=== PATIENT | female | born 1990 | race Caucasian/White ===

== ENCOUNTER → 2017-11-16 07:57 | Outpatient (CLI) | payer OTHER, SELFPAY ==
[2017-11-18 15:27] LABS: HPV Reflexed? NOT INDICATED
== END ==
PROVIDERS: Visit Provider Obstetrics & Gynecology
DX: Z12.4 Encounter for screening for malignant neoplasm of cervix (principal)
CPT/HCPCS: 88175; G0145

== ENCOUNTER → 2018-09-20 09:52 | Outpatient (CLI) | payer OTHER, SELFPAY ==
--- NOTE | 2018-09-20 10:06 | RAD_ITS ---
STUDY: X-RAY - RIGHT FOOT CLINICAL: Female, 28 years old. Pain along the fifth metatarsal. TECHNIQUE: 3 view(s) of the foot. COMPARISON: None. FINDINGS: Normal talus, calcaneus, and tarsal bones. Normal visualized subtalar, talonavicular, calcaneocuboid, tarsal and tarsometatarsal articulations. Normal metatarsi. Normal metatarsophalangeal joint of the great toe. Normal tibial and fibular sesamoid bones. Normal interphalangeal joint of the great toe. Normal phalanges of the great toe. Normal second through fifth metatarsophalangeal joints. Normal interphalangeal joints and phalanges of the lesser toes. The soft tissue structures are unremarkable. RAD/Foot min 3 Views IMPRESSION: Normal x-ray examination of the foot. Electronically Signed: Rasheed Ayala MD at 15:51 EST , Service support ,
== END ==
PROVIDERS: Family Provider Family Medicine; PCP Family Medicine; Referring Provider Family Medicine; Visit Provider Family Medicine
DX: S93.601A Unspecified sprain of right foot, initial encounter (principal)
CPT/HCPCS: 73630

== ENCOUNTER → 2018-10-05 09:20 | Outpatient (CLI) | payer OTHER, SELFPAY ==
[2018-10-05 09:10] VITALS: BMI 30.5
--- NOTE | 2018-10-05 09:25 | RAD_ITS ---
STUDY: X-RAY - RIGHT SHOULDER REASON FOR EXAM: Female, 28 years old. Right shoulder pain TECHNIQUE: 4 view(s) of the shoulder. COMPARISON: None. FINDINGS: Normal glenohumeral articulation. Normal acromioclavicular joint. Normal acromion. Normal humeral head and visualized proximal humerus. The soft tissue structures are unremarkable. Normal visualized pulmonary apex. RAD/Shoulder min 2 Views IMPRESSION: Normal x-ray examination of the shoulder. Electronically Signed: Kyaw Sanabria DO at 9:43 EST Tel , Service support ,
== END ==
PROVIDERS: Family Provider Family Medicine; PCP Family Medicine; Referring Provider Physician Assistant; Visit Provider Physician Assistant
DX: M25.511 Pain in right shoulder (principal)
CPT/HCPCS: 73030

== ENCOUNTER → 2018-11-01 10:23 | Outpatient (CLI) | payer OTHER, SELFPAY ==
[2018-10-05 09:10] VITALS: BMI 30.5
--- NOTE | 2018-11-01 10:30 | RAD_ITS ---
PROCEDURE: ARTHROGRAM - RIGHT SHOULDER REASON FOR EXAM: Female, 28 years old. Shoulder pain FLUOROSCOPY TIME (if supplied): (0:12) minutes/seconds STERILE BARRIER TECHNIQUE: The following sterile barrier precautions were used during the procedure: hand hygiene; use of 2% chlorhexidine aseptic; use of a cap, mask, sterile gown, sterile gloves, sterile full body drape, and a large sterile sheet. PROCEDURE/TECHNIQUE: The risks, benefits, and alternatives to the procedure were explained to patient, and the patient agreed to the procedure and signed a consent form for the procedure. A timeout was performed to confirm the patient's identity, the type of procedure, to be performed and the site of entry. Injection Information: Mixture containing 0.2 mL of Omniscan, 10 mL of Omnipaque 300 and 10 mL of normal saline. Number of images obtained: 7 TECHNIQUE: Under fluoroscopic guidance using sterile technique and after infiltration of the skin and subcutaneous soft tissues with 10 mL of lidocaine 1% a 22-gauge needle is introduced in the shoulder joint. 10 ml of the above mentioned mixture were injected in the shoulder joint. FINDINGS: The joint capsule is normal in size. There is no abnormal opacification of the subdeltoid bursa to suggest a full-thickness rotator cuff tear. There is no evidence of intra-articular loose bodies. RAD/Arthrogram Shoulder w/ MRI IMPRESSION: There is no evidence of intra-articular loose bodies. Electronically Signed: Celeste Andrade, at 16:07 EDT Tel , Service support ,
--- NOTE | 2018-11-01 10:42 | MRI_ITS ---
STUDY: MR RIGHT SHOULDER ARTHROGRAPHY REASON FOR EXAM: Pain and limited range of motion, felt a pop 6 months ago lifting overhead, evaluate for SLAP lesion. TECHNIQUE: Standardized fat and water weighted pulse sequences were obtained in all 3 orthogonal planes after intra-articular instillation of dilute Magnevist. COMPARISON: Radiographs 10/05/2018. FINDINGS: Normal supraspinatus tendon. Normal infraspinatus tendon. Normal subscapularis tendon. Normal teres minor tendon. Normal supraspinatus muscle. Normal infraspinatus muscle. Normal subscapularis muscle. Normal teres minor muscle. Normal glenohumeral articulation. Normal humeral head and visualized proximal humerus. Normal biceps labral complex. There is a tear with nonvisualization of the long biceps tendon. Normal labrum. Normal capsulo- ligamentous complex. Normal rotator interval. Normal acromioclavicular articulation. There is a Type I morphology (flat undersurface), with a mild anterior downsloping orientation. There is a trace of subacromial-subdeltoid bursal fluid. Normal visualized coracohumeral and coracoacromial ligaments. Normal deltoid muscle. Normal trapezius muscle. MRI/Upper Ext Jt Only W/Contrast IMPRESSION: Tear with nonvisualization of the long biceps tendon. No demonstrated SLAP lesion. Electronically Signed: Shemar Aranda MD at 13:59 EDT Tel , Service support ,
== END ==
PROVIDERS: Family Provider Family Medicine; PCP Family Medicine; Referring Provider Physician Assistant; Visit Provider Physician Assistant
DX: M25.311 Other instability, right shoulder (principal); S43.431A Superior glenoid labrum lesion of right shoulder, initial encounter
CPT/HCPCS: 23350; 73222; 77002; A9577; Q9967

== ENCOUNTER 2018-12-06 08:00 | Outpatient (RCR) | payer OTHER, SELFPAY ==
[2018-10-05 09:10] VITALS: BMI 30.5
--- NOTE | 2018-11-15 07:59 | HP.PTEVAL_ITS ---
Patient's Visit Information SUSHIL FINNEY is a 28 year old F referred to Physical Therapy by Casey Saini DO with a diagnosis of biceps tendon rupture R.. Date of Evaluation: 11/15/18 Physical Therapist: Sreedhar Rm DPT, OCS, CSCS - Visit Plan Frequency: 3x /Week Duration: 4-6 Weeks Plan: 3x/week for 3-6 weeks for. 1. nonthermal US R biceps and supra. 2. strength RC and postural, slow progression of painfree biceps. 3. pec stretches and mobs, PROM to R shoulder as needed. 4. ACTIVITY MODIFICATION for REST> - Subjective Findings: Shoulder R problems for long time. Lifting at [employer] overhead and shoulder did not feel good all of a sudden. Did not get better. Got in to see ortho and had MRI arthrogram. Showed ruptured biceps tendon but not fully. That was two weeks ago. Pain is not too bad as I havent been doing much. If sleeps on side then it is sore but usable. Pushing exercises hurt it and it gets caught. Overhead training not too bad. Pain is 5/10 transiently with pushing. Hurts dull 4/10 if sleeps on it wrong. Has been avoiding alot of activities with arm. Sleep is OK. 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 Been OK at work. Other hobbies other than working out are woriking with her certified therapy dog and walking her with L hand a little bit more. Dressing and basic ADLs are oK. - Pain R anterior shoulder Pain Intensity (Out of 10): 0 Pain Intensity Range: 0, 5 - Objective R shoulder + apprehension and neer. - et rotation lag test. - sulcus. Head is forward and scap are protruded. Tightness apparent minimally in pectorals. Full aROM R shoulder and L shoulder but R IR and end range/painful arc with abduction. Strength is 4/5 ext rotation with some pain and 4- abd with pain, flexion and IR 4+ R. 5/5 L shoulder. biceps and triceps 4+ and no pain B. reflexes 2/3 bi and tri. Sensation WNL to gross light touch - Goals Goal 1:: Full aROM R shoulder without pain Goal Time Frame: 4-6 Weeks Goal 2:: Patient I in approp ex to stabilize shoulder. Goal Time Frame: 4-6 Weeks Goal 3:: Pt feel 90% back to normal Goal Time Frame: 4-6 Weeks Goal 4:: burpees without noticing shoulder Goal Time Frame: 4-6 Weeks - Rehabilitation Potential Physical Therapy Diagnosis: R shoulder pain with biceps rupture. Rehabilitation Potential: Fair - Anticipated Interventions Patient/Client Instruction: Educate patient on: Condition, Plan of Care For the Purpose of:: To decrease pain, To improve nutrient delivery to tissue, To improve muscle performance and motor function Therapeutic Exercise to Include: Strength training, Flexibilty training, Passive ROM, Active ROM For the Purpose of:: To decrease pain, To improve nutrient delivery to tissue, To increase tolerance to activity/condition/position, To improve ability of physical actions for home/community/work/leisure Manual Therapy Techniques to Include: Mobilization, Passive ROM For the Purpose of:: To decrease pain, To improve muscle performance and motor function Ultrasound (thermal/non thermal): Yes - nonthermal For the Purpose of:: To decrease swelling/inflammation Thank you for the opportunity to evaluate your patient. For Medicare and Medicare HMO plans, please review the plan of care and approve it. It will need to be FAXED BACK to us at [phone] for Medicare purposes. For Medicare only, by signing this I certify the plan of care. Please let me know if there are questions or concerns regarding this plan of care. Physician Signature: Date:
--- NOTE | 2019-02-08 12:19 | HP.PT.NRP ---
HP - Discharge Summary (1) - Patient Information SUSHIL FINNEY was seen in my office for initial evaluation on 11/15/18. The following Plan of Care was established for this patient: Initial Frequency: 3x /Week Initial Duration: 4-6 Weeks - Anticipated Interventions Patient/Client Instruction: Educate patient on: Condition, Plan of Care For the Purpose of:: To decrease pain, To improve nutrient delivery to tissue, To improve muscle performance and motor function Therapeutic Exercise to Include: Strength training, Flexibilty training, Passive ROM, Active ROM For the Purpose of:: To decrease pain, To improve nutrient delivery to tissue, To increase tolerance to activity/condition/position, To improve ability of physical actions for home/community/work/leisure Manual Therapy Techniques to Include: Mobilization, Passive ROM For the Purpose of:: To decrease pain, To improve muscle performance and motor function Ultrasound (thermal/non thermal): Yes - nonthermal For the Purpose of:: To decrease swelling/inflammation This patient was last seen in our office 12/06/18. Pertinent comments regarding their Physical therapy will appear below: Pt seen 6 visits through 12/06. She cancelled her last visit and neglected to schedule and further visits. at this point, it has been over 2 months and I will discontinue due to nonattendance. At this point I will be discontinuing this patient from physical therapy. I would be happy to see this patient again in the future if found appropriate by the physician. Thank you! Sreedhar Rm, DPT, OCS, CSCS
== END 2018-12-06 19:00 | disposition home or self-care (01) ==
LOC: PT 08:00
PROVIDERS: Family Provider Family Medicine; PCP Family Medicine; Referring Provider Orthopaedic Surgery; Visit Provider Orthopaedic Surgery
DX: S46.211D Strain of muscle, fascia and tendon of other parts of biceps, right arm, subsequent encounter (principal)
CPT/HCPCS: 97035; 97110; 97161

== ENCOUNTER 2020-03-13 08:31 | Outpatient (RCR) | payer OTHER, SELFPAY ==
[2018-10-05 09:10] VITALS: BMI 30.5
== END 2020-03-13 23:59 | disposition home or self-care (01) ==
LOC: NS 08:31
PROVIDERS: PCP Family Medicine; Visit Provider Family Medicine
DX: Z71.3 Dietary counseling and surveillance (principal); E66.9 Obesity, unspecified; Z68.30 Body mass index [BMI] 30.0-30.9, adult
CPT/HCPCS: 97802

== ENCOUNTER → 2020-04-20 17:47 | Outpatient (CLI) | payer OTHER, SELFPAY ==
[2018-10-05 09:10] VITALS: BMI 30.5
== END ==
PROVIDERS: PCP Family Medicine; Referring Provider Family Medicine; Visit Provider Family Medicine
DX: Z71.89 Other specified counseling (principal)
CPT/HCPCS: 87635; U0003

== ENCOUNTER 2020-06-14 08:55 | Emergency (ER) | payer OTHER, SELFPAY ==
[2018-10-05 09:10] VITALS: BMI 30.5
[2020-06-14 08:55] VITALS: BP 139/86; PULSE 79; RESP 16; TEMP 36.4; O2SAT 98; BMI 30.8
--- NOTE | 2020-06-14 09:06 | ED.VIS.GEN ---
History of Present Illness Chief Complaint: Back Informant: Patient Onset: Today Current Severity: Moderate Maximum Severity: Moderate Narrative: Patient presents with back pain and spasms. She states while stretching to workout this morning she noted some tightness in her left lower back and did not proceed any further. 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 She did require assistance out of the shower and with getting dressed. She denies pain shooting down her leg. There was no trauma or direct injury to her back. She denies paresthesias. - Past Medical History (1) Depression Status: Chronic Past Medical History - Allergies and Home Meds Allergies/Adverse Reactions: Allergies Penicillins Allergy (Verified 06/14/20 08:57) rash Primary Care Physician: Aldo Mueller MD [Primary Care Provider] - Prior records reviewed: Yes Surgical History: tonsillectomy Smoking Status: Never smoker Review of Systems General: Denies: Chills, Fever Eyes: Denies: Visual changes - bilaterally ENT: Denies: Bilateral ear pain Cardiovascular: Denies: Chest pain Respiratory: Denies: Dyspnea, Cough Gastrointestinal: Denies: Abdominal pain, Vomiting, Diarrhea Musculoskeletal: Reports: Back pain Neurological: Denies: Weakness, Parasthesia, Numbness Hematologic: Denies: Easy bruising Allergy: Denies: Uticaria Physical Exam Vital Signs/Narrative: Vital Signs Temp Pulse Resp BP Pulse Ox 06/14/20 08:55 97.6 F L 79 16 139/86 H 98 Inital Vital Signs reviewed: Yes General: Well nourished, Well developed Head: Normocephalic ENT: Moist mucous membranes Neck: Supple Cardiovascular: Regular rate, Regular rhythm Respiratory: No distress, CTA bilaterally Abdomen: Soft, Nontender Back: - - Reproducible tenderness in the left lumbar paraspinal muscles. No overlying skin change. No focal point tenderness midline. Extremities: Nontender Skin: Normal color, No rash Neurological: Alert, Oriented x3, Normal Strength, Normal Sensation, - - Strong distal pulses. 2+ left patellar reflex. Psychological: Normal affect Diagnostic/Tx/Re-eval - Medical Decision Making With no direct trauma to her back I do not feel imaging is going to be beneficial. Patient be treated with naproxen and Flexeril here along with a Lidoderm patch. She will be written for the same at home as well as a few [place] for breakthrough pain. ED Disposition - Plan for ED Patient: Disposition: Home or Assisted Living Diagnosis: Strain of lumbar paraspinal muscle Instructions: ED LUMBAR SPRAIN/STRAIN Prescriptions: cycloBENZAPRine HCl [Flexeril] 10 mg PO TID PRN #20 tab PRN Reason: Muscle Spasm Transmission Status: Pending to [id number] Lidocaine [Lidoderm Patch] 1 patch TOPICAL BID PRN PRN #6 patch PRN Reason: Spasms Transmission Status: Pending to [id number] Naproxen [Naprosyn] 500 mg PO BID PRN PRN #20 tab PRN Reason: Pain Score 4-10 Transmission Status: Pending to [id number] Hydrocodone Bitart/Apap 5-325 [[place] 5MG-325MG] 1 tablet PO Q6H PRN PRN 3 Days #10 tablet PRN Reason: Pain Transmission Status: Received by [id number] Referrals: Aldo Mueller MD [Primary Care Provider] - 1 Week if not improving
[2020-06-14] MEDS: Naproxen 500 MG Tablet PO (10:02)
[2020-06-14] MEDS: Lidocaine 5% Patch 1 PATCH TOPICAL (10:02)
[2020-06-14] MEDS: cycloBENZAPRine HCl 10 MG Tablet PO (10:02)
[2020-06-14 10:07] VITALS: PULSE 81; RESP 16; O2SAT 97
--- NOTE | 2020-06-14 10:08 | ED.RN ---
THIS NURSE REVIEWED D/C INSTRUCTIONS WITH PT. PT VERBALIZED UNDERSTANDING OF INSTRUCTIONS. PT DENIES FURTHER NEEDS OR QUESTIONS AT THIS TIME. PT AMBULATES FROM ROOM ON OWN WITHOUT ASSISTANCE FROM STAFF
== END 2020-06-14 10:10 | disposition home or self-care (01) ==
LOC: ED 09:18
PROVIDERS: Emergency Provider Emergency Medicine; PCP Family Medicine
DX: S39.012A Strain of muscle, fascia and tendon of lower back, initial encounter (principal); X50.1XXA Overexertion from prolonged static or awkward postures, initial encounter; Y93.9 Activity, unspecified; Y92.9 Unspecified place or not applicable; F32.9 Major depressive disorder, single episode, unspecified; Z79.899 Other long term (current) drug therapy
CPT/HCPCS: 99281

== ENCOUNTER → 2020-11-26 12:40 | Outpatient (CLI) | payer OTHER, SELFPAY ==
--- NOTE | 2020-11-26 12:44 | RAD_ITS ---
STUDY: X-RAY - CERVICAL SPINE REASON FOR EXAM: Female, 30 years old. NECK MUSCLE SPASM TECHNIQUE: 6 view(s) of the cervical spine were obtained. COMPARISON: None FINDINGS: Normal anterior atlantoaxial articulation. Normal odontoid process. There is straightening of the normal cervical lordosis. Normal vertebral bodies and endplates. Normal disc space heights. Normal visualized intervertebral neuroforamina. The soft tissue structures are unremarkable. RAD/Cerv Spine 4 or 5 Views IMPRESSION: Normal x-ray examination of the visualized cervical spine. Electronically Signed: Robert Magaña MD at 13:07 EDT , Service support ,
== END ==
PROVIDERS: PCP Family Medicine; Referring Provider Family Medicine; Visit Provider Family Medicine
DX: M62.838 Other muscle spasm (principal)
CPT/HCPCS: 72050

== ENCOUNTER 2020-12-31 12:24 | Outpatient (RCR) | payer OTHER, SELFPAY ==
--- NOTE | 2020-12-31 13:07 | HP.PTEVAL ---
Patient's Visit Information SUSHIL HOPSON is a 30 year old F referred to Physical Therapy by Dr. Aldo Mueller MD with a diagnosis of Neck spasms. Date of Evaluation: 12/31/20 Physical Therapist: Sreedhar Rm DPT, OCS, CSCS - Visit Plan Frequency: 2x /Week Duration: 4-6 Weeks Plan: 2x/week for 2-4 weeks for... 1 Carolyn neck progressions with c/s ret, progressing to mobs, ext when able. 2. cervical and postural strength progressing to I program. 3a STM to neck subocc adn UT as needed. 3. May use heat, ice, TENS if needed, - Subjective Tightness adn pain in neck, insidious onset adn has had this in the past but it is flared up. Worse at base of head R>L when turning head. kept her up at night at first when it started back in November, she is a side sleeper. Pain now is daily with some bad days. Bad days to 5/10 intemrittently. Some days minimal. Activities are normal. 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 Doing computer work alot and has stand up desk she uses now and then [facility] helps. Hobbies include crossfit 3-5x/week and training for triathlon. neck has not limited these. Doing alot of biking on road bike. Basic aDLs are OK. Worse with some movements like rowing and dipping. deadlifts running. biking might be worse after. No arm symptoms. - Pain neck pain Pain Intensity (Out of 10): 0 Pain Intensity Range: 0, 5 - Objective Posture is forward head and elevated sap. Tender to palpation on R subocc and into B UT. reflexes 1/3 bi and tri. Sensation UE WNl to gross light touch. + c/s compressionw tih right rotation. Tightness in B UT. cervical aROM ext 55 + right deviates L slightly, R rotation 65 adn L 72 with pain R, SB are K, retraction hurts R subocc. repeated motion comfortable to start: protrusion PDM, NE. retraction repeated: improved ROM./rotation, improved ROM,. repeated ret ext., worse ret. - Goals Goal 1:: Full c/s ROM without pain or tightness. Goal Time Frame: 4-6 Weeks Goal 2:: All home and work activities without increased pain Goal Time Frame: 4-6 Weeks Goal 3:: Pt feel 90% better overall Goal Time Frame: 4-6 Weeks Goal 4:: oswestry neck 0 score. Goal Time Frame: 4-6 Weeks - Rehabilitation Potential Physical Therapy Diagnosis: cervical pain, likely discal. Rehabilitation Potential: Fair - Anticipated Interventions For the Purpose of:: To decrease pain, To increase ROM Therapeutic Exercise to Include: Strength training, Postural training, Flexibilty training, Passive ROM, Active ROM, Carolyn Exercises For the Purpose of:: To decrease pain, To increase ROM, To improve muscle performance and motor function, To increase tolerance to activity/condition/position, To improve health of tissue Manual Therapy Techniques to Include: Mobilization, Soft tissue mobilization For the Purpose of:: To decrease pain, To increase ROM, To improve nutrient delivery to tissue TENS: Yes Cryotherapy (ice pack, ice massage): Yes Thermo therapy (hot pack): Yes For the Purpose of:: To decrease pain Thank you for the opportunity to evaluate your patient. For Medicare and Medicare HMO plans, please review the plan of care and approve it. It will need to be FAXED BACK to us at [phone] for Medicare purposes. For Medicare only, by signing this I certify the plan of care. Please let me know if there are questions or concerns regarding this plan of care. Physician Signature: Date:
--- NOTE | 2021-03-12 12:35 | HP.PT.NRP ---
SUSHIL HOPSON was seen in my office for initial evaluation on 12/31/20. The following Plan of Care was established for this patient: Initial Frequency: 2x /Week Initial Duration: 4-6 Weeks For the Purpose of:: To decrease pain, To increase ROM Therapeutic Exercise to Include: Strength training, Postural training, Flexibilty training, Passive ROM, Active ROM, Tona Exercises For the Purpose of:: To decrease pain, To increase ROM, To improve muscle performance and motor function, To increase tolerance to activity/condition/position, To improve health of tissue Manual Therapy Techniques to Include: Mobilization, Soft tissue mobilization For the Purpose of:: To decrease pain, To increase ROM, To improve nutrient delivery to tissue TENS: Yes Cryotherapy (ice pack, ice massage): Yes Thermo therapy (hot pack): Yes For the Purpose of:: To decrease pain This patient was last seen in our office 12/31/20. Pertinent comments regarding their Physical therapy will appear below: Pt seen for evaluationa dn POC was established. She cancelled or no showed for all of her visits. At this point, it has been over two months and I will discontinue due to nonattendance. At this point I will be discontinuing this patient from physical therapy. I would be happy to see this patient again in the future if found appropriate by the physician. Thank you! Sreedhar Rm, DPT, OCS, CSCS Balance/Gait/Functional tests - Balance/Special Test Scores Oswestry Neck Score: 5
== END 2020-12-31 19:00 | disposition home or self-care (01) ==
LOC: PT 12:24
PROVIDERS: PCP Family Medicine; Referring Provider Family Medicine; Visit Provider Family Medicine
DX: M62.838 Other muscle spasm (principal)
CPT/HCPCS: 97110; 97162

== ENCOUNTER 2022-07-14 14:53 | Outpatient (CLI) | payer OTHER, SELFPAY ==
[2022-07-14 16:49] LABS: Absolute Lymphocyte Count 2.15 X10^3/uL (0.83-4.51); Basophil# 0.06 X10^3/uL; Basophil% 0.9 % (0-1); Eosinophil# 0.19 X10^3/uL; Eosinophils% 2.8 % (0-5); Hemoglobin 13.1 g/dL (12.0-15.0); Lymphocyte # 2.15 X10^3/ul (0.83-4.51); Lymphocyte % 31.2 % (19-41); Mean Corp Hgb Conc 33.6 g/dL (32-36); Mean Corpuscular Hgb 31.9 pg (27.0-32.0); Mean Corpuscular Volume 94.9 fL (81-99); Monocyte# 0.49 X10^3/uL; Monocyte% 7.1 % (0-10); NRBC Flagged by Analyzer 0 % (0-5); Neutrophil # 3.98 X10^3/uL (2.7-7.7); Neutrophil % 57.7 % (47-70); Platelet Count 286 K/mm3 (150-450); RBC Distribution Width CV 13.2 % (11.6-14.6); RBC Distribution Width SD 46.2 fl (35.1-43.9); Red Blood Count 4.11 M/mm3 (4.2-5.4); White Blood Count 6.9 K/mm3 (4.4-11.0)
[2022-07-14 17:03] LABS: ALB/GLOB Ratio 1.1 RATIO (0.9-2.4); AST(SGOT) 12 U/L (15-37); Alanine Aminotransfer ALT/SGPT 23 U/L (13-56); Albumin, Serum 3.8 g/dL (3.2-5.0); Alkaline Phosphatase 80 U/L (45-117); Anion Gap 9 (5-15); BUN 17 mg/dL (7-18); BUN/Creat Ratio 17.5 RATIO (10-20); Chloride 105 mmol/L (98-107); Creatinine, Serum 0.97 mg/dL (0.55-1.02); EST Glomerular Filtration Rate 70 mL/min (>60); Est Glom Filt Rate - Afr Amer 85 mL/min (>60); Globulin 3.6 g/dL (2.2-4.2); Glucose 99 mg/dL (74-106); Potassium 3.9 mmol/L (3.5-5.1); Protein, Total 7.4 g/dL (6.4-8.2); Sodium Level 138 mmol/L (136-145); Thyroid Stim Hormone (TSH) 1.51 uIU/mL (0.358-3.74)
== END 2022-07-14 23:59 | disposition home or self-care (01) ==
LOC: BIMLAB 14:54
PROVIDERS: PCP Internal Medicine; Referring Provider Internal Medicine; Visit Provider Internal Medicine
DX: F41.1 Generalized anxiety disorder (principal)
CPT/HCPCS: 36415; 80053; 84439; 84443; 85025

== ENCOUNTER → 2023-04-17 | Outpatient (CLI) | payer OTHER, SELFPAY ==
[2023-04-17 12:22] LABS: Absolute Lymphocyte Count 2.08 X10^3/uL (0.83-4.51); Absolute Neutrophil Count 3.9 X10^3/uL (2.0-7.7); Basophil# 0.07 X10^3/uL; Eosinophil# 0.23 X10^3/uL; Eosinophils% 3.4 % (0-5); Hematocrit 37.3 % (37-47); Hemoglobin 11.6 g/dL (12.0-15.0); Lymphocyte # 2.08 X10^3/ul (0.83-4.51); Lymphocyte % 30.3 % (19-41); Mean Corp Hgb Conc 31.1 g/dL (32-36); Mean Corpuscular Hgb 29.5 pg (27.0-32.0); Mean Corpuscular Volume 94.9 fL (81-99); Mean Platelet Vol. 9.7 fl (6.2-12.0); Monocyte# 0.55 X10^3/uL; NRBC Flagged by Analyzer 0 % (0-5); Neutrophil % 56.9 % (47-70); Platelet Count 294 K/mm3 (150-450); RBC Distribution Width CV 13.7 % (11.6-14.6); RBC Distribution Width SD 47.4 fl (35.1-43.9); Red Blood Count 3.93 M/mm3 (4.2-5.4); White Blood Count 6.9 K/mm3 (4.4-11.0)
[2023-04-17 12:51] LABS: ALB/GLOB Ratio 1.2 RATIO (0.9-2.4); AST(SGOT) 14 U/L (15-37); Alanine Aminotransfer ALT/SGPT 21 U/L (13-56); Albumin, Serum 3.7 g/dL (3.2-5.0); Alkaline Phosphatase 85 U/L (45-117); Anion Gap 4 (5-15); BUN 15 mg/dL (7-18); BUN/Creat Ratio 19.6 RATIO (10-20); Calcium,Total 8.8 mg/dL (8.5-10.1); Chloride 109 mmol/L (98-107); Cholesterol 168 mg/dL (200); Creatinine, Serum 0.77 mg/dL (0.55-1.02); EST Glomerular Filtration Rate 92 mL/min (>60); Est Glom Filt Rate - Afr Amer 111 mL/min (>60); Globulin 3.2 g/dL (2.2-4.2); Glucose 98 mg/dL (74-106); High Density Lipoprotein 72 mg/dL; Protein, Total 6.9 g/dL (6.4-8.2); Sodium Level 140 mmol/L (136-145); Triglycerides 64 mg/dL; Very Low Density Lipoprotein 13 mg/dL (5-40)
== END | disposition home or self-care (01) ==
LOC: BIMLAB 10:24
PROVIDERS: PCP Internal Medicine; Referring Provider Internal Medicine; Visit Provider Internal Medicine
DX: F41.1 Generalized anxiety disorder (principal); F10.10 Alcohol abuse, uncomplicated; Z13.220 Encounter for screening for lipoid disorders; Z13.6 Encounter for screening for cardiovascular disorders
CPT/HCPCS: 36415; 80053; 80061; 85025

== ENCOUNTER → 2024-02-09 | Outpatient (CLI) | payer OTHER, SELFPAY ==
[2024-02-09 17:01] LABS: ALB/GLOB Ratio 1.1 RATIO (0.9-2.4); AST(SGOT) 14 U/L (15-37); Alanine Aminotransfer ALT/SGPT 26 U/L (13-56); Albumin, Serum 3.8 g/dL (3.2-5.0); Alkaline Phosphatase 79 U/L (45-117); Anion Gap 5 (5-15); BUN 11 mg/dL (7-18); BUN/Creat Ratio 11.8 RATIO (10-20); Calcium,Total 9.3 mg/dL (8.5-10.1); Chloride 107 mmol/L (98-107); Cholesterol 180 mg/dL (200); Creatinine, Serum 0.93 mg/dL (0.55-1.02); EST Glomerular Filtration Rate 73 mL/min (>60); Est Glom Filt Rate - Afr Amer 88 mL/min (>60); Globulin 3.5 g/dL (2.2-4.2); Glucose 105 mg/dL (74-106); High Density Lipoprotein 78 mg/dL; Potassium 3.7 mmol/L (3.5-5.1); Protein, Total 7.3 g/dL (6.4-8.2); Sodium Level 140 mmol/L (136-145); Triglycerides 112 mg/dL; Very Low Density Lipoprotein 22 mg/dL (5-40)
[2024-02-09 17:02] LABS: Absolute Lymphocyte Count 2.85 X10^3/uL (0.83-4.51); Basophil# 0.06 X10^3/uL; Basophil% 0.7 % (0-1); Eosinophil# 0.13 X10^3/uL; Eosinophils% 1.5 % (0-5); Hematocrit 38.9 % (37-47); Hemoglobin 12.5 g/dL (12.0-15.0); Lymphocyte # 2.85 X10^3/ul (0.83-4.51); Lymphocyte % 32.9 % (19-41); Mean Corp Hgb Conc 32.1 g/dL (32-36); Mean Corpuscular Hgb 30.2 pg (27.0-32.0); Mean Platelet Vol. 9.8 fl (6.2-12.0); Monocyte# 0.56 X10^3/uL; Monocyte% 6.5 % (0-10); NRBC Flagged by Analyzer 0 % (0-5); Neutrophil # 5.03 X10^3/uL (2.7-7.7); Neutrophil % 58.2 % (47-70); Platelet Count 307 K/mm3 (150-450); RBC Distribution Width CV 13.4 % (11.6-14.6); RBC Distribution Width SD 45.8 fl (35.1-43.9); Red Blood Count 4.14 M/mm3 (4.2-5.4); White Blood Count 8.7 K/mm3 (4.4-11.0)
== END | disposition home or self-care (01) ==
LOC: BIMLAB 15:04
PROVIDERS: PCP Internal Medicine; Referring Provider Nurse Practitioner; Visit Provider Nurse Practitioner
DX: Z00.00 Encounter for general adult medical examination without abnormal findings (principal)
CPT/HCPCS: 36415; 80053; 80061; 85025

== ENCOUNTER → 2024-02-25 | Outpatient (CLI) | payer OTHER, SELFPAY ==
--- NOTE | 2024-02-25 09:56 | RAD_ITS ---
STUDY: X-RAY - PELVIS AND LEFT HIP REASON FOR EXAM: Female, 33 years old. left hip pain -- CAM views TECHNIQUE: 3 views of the pelvis and hip. COMPARISON: None. FINDINGS: There is a non-specific bowel gas pattern. Normal visualized soft tissue structures. Normal bilateral iliac wings, sacroiliac joints and visualized sacrum. Normal bilateral superior and inferior pubic rami. Normal pubic symphysis. Normal bilateral ischial tuberosities. Normal visualized femoral head. There is cortical sclerosis with sub-cortical cyst formation of the acetabulum. Normal hip joint. 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 MRI may be useful. Electronically Signed: James Perez MD at 8:57 EDT ,
== END | disposition home or self-care (01) ==
PROVIDERS: PCP Internal Medicine; Referring Provider Nurse Practitioner; Visit Provider Nurse Practitioner
DX: M25.552 Pain in left hip (principal)
CPT/HCPCS: 73502

== ENCOUNTER 2024-05-02 08:00 | Outpatient (RCR) | payer OTHER, SELFPAY ==
--- NOTE | 2024-03-08 15:10 | HP.PTEVAL ---
Patient's Visit Information Visit Information Visit Information: SUSHIL HOPSON is a 34 year old F referred to Physical Therapy by Dr. Casey Saini DO with a diagnosis of LUMBAR DDD AND SPONDYLOSIS. Date of Evaluation: 03/08/24 Physical Therapist: Yessi Hernández PT, Cert MDT Visit Plan Frequency: 2x /Week Duration: 4-6 Weeks Plan: AQUATIC THERAPY FOR LUMBAR AND LYLE HIP PAIN RELIEF. POSTURE TRAINING FOR ANTERIOR PELVIC TILT CORRECION CORE STRENGTHENING WITH NEUTRAL SPINE ONLY. LYLE LE STRENGTHENING. HIP FLEXOR, HAMSTRING, HIP ROTATOR AND CALF STRETCHING. 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 Present symptoms: INTERMITTENT LEFT LOW BACK PAIN. INTERMITTENT LATERAL THIGH PAIN. CONSTANT ANTERIOR HIP PAIN. INTERMITTENT R ANTERIOR HIP PAIN. Present since: AUG 2022 Pain Scale: WORST 8/10, LEAST 2/10 Currently: 5/10 Is it getting better, worse or staying the same: STAYING THE SAME Commenced as a result of: DRIVING Symptoms at onset: R ANTERIOR HIP PAIN Worse: PROLONGED SITTING (MORE THAN 90 MIN), (LIFTING, SQUATS, DEADLIFTS, RUNNING, TRAINING WITH SURVEY RESEARCH MANAGER), TWISTING, BENDING TO THE SIDE, TRAVELING BY CAR OR PLANE. LIFTING L LEG, STEPPING OVER THINGS WITH L LEG. Better: PIRIFORMIS, GROIN, AND QUADS. LYING DOWN ON BACK WITH PILLOW UNDER BACK AND BUTT. STANDING WITH PELVIS TUCKED - TAUGHT BY PIPE FITTER WELDING. Disturbed sleep: YES Previous history/Previous treatment: PIPE FITTER WELDING/[facility], [facility]ICAL [facility] AUG/SEP 2022 - STATES IT HELPED WHEN THERAPIST PUSHED ON HER BACK - TRIED ABOUT 3-4 VISITS BUT STATES IT WAS REALLY EXPENSIVE - ABOUT 75% BETTER. WANTED TO SEE AN ORTHO BEFORE CONTINUING. SAW ORTHO - DR. SAINI - ARTHRITIS IN BACK AND IMPINGEMENT IN L HIP. STATES ORTHO DIDN'T LOOK AT R HIP. STATES NO SURGERY WAS RECOMMENDED. STATES WEIGHT LOSS IS ALSO RECOMMENDED AND SHE IS DOING NUTRITION COACHING WITH TRAINING AND MEDICATION WITH DR. NOLASCO. H/O EPISODE OF BACK PAIN WITH ED VISIT 2019 TREATED WITH REST, MUSCLE RELAXER AND NAPROXEN - WAS LIFTING/CROSS FIT THEN BENT OVER TO RADIATOR CLEANER SHAMPOO BOTTLE IN THE SHOWER AND BACK WENT OUT. Treatment this episode: PERSCRIPTION NAPROXEN, FLEXERIL NEEDED. REST. Coughing/sneezing/straining: NO EFFECT ON PAIN. Gait: DENIES LIMPING BUT SOME DIFFICULTY INITIATING GAIT AFTER PROLONGED SITTING. Bowel or Bladder Dysfunction: NO Accidents: NO Unexplained weight loss: NO Imaging: RECENT X-RAYS OF PELVIS, L HIP AND LUMBAR - SEE [facility] EMR. NO MRI'S. PMH/Recent major surgery: PATIENT DENIES HAVING ANY MEDICAL CONDITIONS. Objective Objective: Sitting/Standing Posture: L ILIAC CREST HIGHER THAN R. ANTERIOR PELVIC TILT. X-RAY SHOWS MILD LEVOSCOLIOSIS CENTERED AT L4 Active Correction of posture: BETTER. ABLE TO PARTIALLY CORRECT. Other Observations: INDEP GAIT AND TRANSFERS WITH NO GROSS DEVIATIONS NOTED. ABLE TO TRANSFER INDEP'LY FROM SIT TO STAND WITHOUT UE ASSIST. Sensory deficit: LYLE LE LIGHT TOUCH SENSATION GROSSLY INTACT AND SYMMETRICAL ROM deficit: L HIP IR/ER TIGHTNESS > R AND L HIP PAIN WITH TESTING. MILD LYLE HS AND CALF TIGHTNESS. LYLE HIP FLEXOR TIGHTNESS. Motor deficit: LYLE LE'S GROSSLY 5/5 WITH MMT'ING EXCEPT HIPS, R 4/5 AND L 4-/5. C/O L HIP PAIN WITH LYLE HIP TESTING. Reflexes: R QUAD 2+, R ACHILLES 2+, L QUAD 1+, L ACHILLES 2+ Dural Signs: NEGATIVE LYLE LE'S. Lumbar mvmt loss: flex - NIL - BETTER - NB ext - MOD - NE R SG - MOD TO DOMINIC - INCREASES L HIP - NW L SG - MIN - INCREASES L HIP BUT NOT BAD WHEN GOING TO THE R - NW Core strength: FAIR Palpation: NO ACUTE TENDERNESS WITH LIGHT PALPATION OF LUMBAR AND LYLE HIP REGIONS. Balance/Special Test Scores Oswestry Low Back Score: 14 Goals Goal 1:: DECREASE C/O LOW BACK AND LYLE LE SX'S BY AT LEAST 75% TO EASE ADL'S Goal Time Frame: 4-6 Weeks Goal 2:: IMPROVE PAINFREE LUMBAR AND LE ROM TO EASE ADL'S. Goal Time Frame: 4-6 Weeks Goal 3:: PATIENT WILL SCORE AT LEAST 5 POINTS BETTER ON LUMBAR OSWESTRY QUESTIONNAIRE Goal Time Frame: 4-6 Weeks Goal 4:: PATIENT WILL BE INDEP WITH HEP FOR CONTINUED IMPROVEMENT ONCE FORMAL PHYSICAL THERAPY IMPROVES. Goal Time Frame: 4-6 Weeks Rehabilitation Potential Physical Therapy Diagnosis: CORE AND LYLE HIP WEAKNESS AND HYPOMOBILITY WITH PAIN LIMITING FUNCTION. Rehabilitation Potential: Good Anticipated Interventions Patient/Client Instruction: Educate patient on: Condition, Plan of Care and Risk Factors For the Purpose of:: To improve self management Therapeutic Exercise to Include: Strength training, Body mechanics, Postural training, Flexibilty training, Neuromotor development, In an aquatic setting and Dynamic Lumbar Stabilization For the Purpose of:: To decrease pain, To increase ROM, To improve muscle performance and motor function, To increase tolerance to activity/condition/position, To improve ability of physical actions for home/community/work/leisure, To increase flexibility/ROM and To improve self management Text: Thank you for the opportunity to evaluate your patient. For Medicare and Medicare HMO plans, please review the plan of care and approve it. It will need to be FAXED BACK to us at [phone] for Medicare purposes. For Medicare only, by signing this I certify the plan of care. Please let me know if there are questions or concerns regarding this plan of care. Physician Signature: Date:
--- NOTE | 2024-04-08 10:30 | HP.PTREVAL_ITS ---
Re-Evaluation Intro: Dr. Casey Saini, DO, It has been my pleasure to treat SUSHIL HOPSON over the last 9 visits for LUMBAR DDD AND SPONDYLOSIS. Please see the progress note below for an update on the physical therapy plan of care! Subjective Subjective: PATIENT REPORTS THE POSTURE CHANGES HAVE MADE A WORLD OF DIFFERENCE. 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 DID A LITTLE BIT OF RUNNING FOR THE FIRST TIME - NO PAIN. LESS ACTIVE AT WORK CURRENTLY DUE TO SUMMER SEASON BEING OVER. HAS NOT TESTED OUT ALL NORMAL ACTIVITIES. STILL GETS PAIN WITH SITTING MORE THAN 30 MIN AND LIFTING HEAVY WEIGHT. AGREEABLE TO CONTINUED PT TO SEE IF SHE CAN RESUME PLOF. Objective Objective/Function: THIS PATIENT IS MAKING GREAT PROGRESS WITH PT BUT SHE HAS NOT HAD NORMAL BACK FUNCTION SINCE AUG 2022. SHE IS A GOOD CANDIDATE TO CONTINUE PT. HER PAIN PAIN HAS BECOME MUCH MORE LOCALIZED, LESS INTENSE AND LESS FREQUENT. HER LUMBAR ROM IS IMPROVING, HER CORE STRENGTH IS IMPROVING AND HER LE FLEXIBILITY IS IMPROVING. ALL OF THIS IS TRANSLATING INTO BETTER DAILY FUNCTION. UPON EXAM TODAY: ROM deficit: MILD LYLE HIP FLEXOR TIGHTNESS. Motor deficit: L HIP 4/5 WITH PAIN WITH TESTING. Dural Signs: NEGATIVE LYLE LE'S. Lumbar mvmt loss: flex - NIL ext - MIN. R SG - MIN L SG - MIN - P CENTRAL LPB - REPEATED L SG ABOLISHES CENTRAL LBP AND BACK FEELS LOOSER OVER-ALL AND REMAINS BETTER THAN BEFORE LUMBAR ROM TESTING STARTED. OTHER: DECREASED C/O LBP TIGHTNESS WITH REP EIL. INCREASED LUMBAR EXT WITH PATIENT OP AND PATIENT REPORTS IT FEELS GOOD. Plan Plan Plan: CONTINUE PT 2X'S A WK X 5 WEEKS TRANSITIONING FROM AQUATIC THERAPY TO [place] PT. *NO LIFTS* EMPHASIZE PROPER POSTURE CONTROL FOR ANTERIOR PELVIC TILT CORRECTION/CONTROL AND PROPER BODY MECHANICS FOR BENDING AND LIFTING WITH EXERCISE AND ACTIVITIES. THER EX FOR CORE AND HIP (FOCUS L HIP) STRENGHT AND STABILITY TO TRY TO HELP PATIENT RETURN TO PLOF. Balance/Gait/Functional tests Balance/Special Test Scores Oswestry Low Back Score: 9 Goals Goals Goal 1:: DECREASE C/O LOW BACK AND LYLE LE SX'S BY AT LEAST 75% TO EASE ADL'S Goal Time Frame: 4-6 Weeks Goal Progress: Goal Met Goal 2:: IMPROVE PAINFREE LUMBAR AND LE ROM TO EASE ADL'S. Goal Time Frame: 4-6 Weeks Goal Progress: Progressing Goal 3:: PATIENT WILL SCORE AT LEAST 5 POINTS BETTER ON LUMBAR OSWESTRY QUESTIONNAIRE - GOAL MET. NEW GOAL - PATIENT WILL SCORE 5 OR LESS ON THE LUMBAR OSWESTRY QUESTIONNAIRE. Goal Time Frame: 8 WKS Goal 4:: PATIENT WILL BE INDEP WITH HEP FOR CONTINUED IMPROVEMENT ONCE FORMAL PHYSICAL THERAPY IMPROVES. Goal Time Frame: 4-6 Weeks Goal Progress: Progressing Goal 5:: PATIENT WILL BE ABLE TO RESUME PRIOR LEVEL OF FUNCTION. Goal Time Frame: 8-12 Weeks Anticipated Interventions Anticipated Interventions Patient/Client Instruction: Educate patient on: Condition, Plan of Care and Risk Factors For the Purpose of:: To improve self management Therapeutic Exercise to Include: Strength training, Body mechanics, Postural training, Flexibilty training, Neuromotor development, In an aquatic setting and Dynamic Lumbar Stabilization For the Purpose of:: To decrease pain, To increase ROM, To improve muscle performance and motor function, To increase tolerance to activity/condition/position, To improve ability of physical actions for home/community/work/leisure, To increase flexibility/ROM and To improve self management Re-Evaluation Ending Re-evaluation ending: Please do not hesitate to contact me at [phone] by phone or if you have questions or concerns regarding this new plan of care! Sincerely, Yessi Hernández, PT, Cert MDT
--- NOTE | 2024-05-13 08:22 | HP.PT.NRP ---
Patient Information Patient Information: SUSHIL HOPSON was seen in my office for initial evaluation on 03/08/24. The following Plan of Care was established for this patient: POC Established Initial Frequency: 2x /Week Initial Duration: 4-6 Weeks Anticipated Interventions Patient/Client Instruction: Educate patient on: Condition, Plan of Care and Risk Factors For the Purpose of:: To improve self management Therapeutic Exercise to Include: Strength training, Body mechanics, Postural training, Flexibilty training, Neuromotor development, In an aquatic setting and Dynamic Lumbar Stabilization For the Purpose of:: To decrease pain, To increase ROM, To improve muscle performance and motor function, To increase tolerance to activity/condition/position, To improve ability of physical actions for home/community/work/leisure, To increase flexibility/ROM and To improve self management Last Seen Last Seen: This patient was last seen in our office 05/02/24. Pertinent comments regarding their Physical therapy will appear below: It has been my pleasure to see this patient for a total of 13 visits. This patient has not returned to Physical Therapy for more visits and is appropriate to return to MD for further follow-up as needed. At this point I will be discontinuing this patient from physical therapy. I would be happy to see this patient again in the future if found appropriate by the physician. Thank you! Yessi Hernández, PT, Cert MDT Balance/Gait/Functional tests Balance/Special Test Scores Oswestry Low Back Score: 9
== END 2024-05-02 19:00 | disposition home or self-care (01) ==
LOC: PT 08:00
PROVIDERS: PCP Internal Medicine; Referring Provider Orthopaedic Surgery; Visit Provider Orthopaedic Surgery
DX: M51.36 Other intervertebral disc degeneration, lumbar region (principal); M47.816 Spondylosis without myelopathy or radiculopathy, lumbar region
CPT/HCPCS: 97110; 97113; 97162; 97530

== ENCOUNTER → 2024-06-09 | Outpatient (CLI) | payer OTHER, SELFPAY ==
--- NOTE | 2024-06-09 07:46 | RAD_ITS ---
INDICATION: INFERTILITY EXAMINATION/TECHNIQUE: Routine hysterosalpingography was performed. Total Fluoroscopic Time: 41 seconds AND number of Fluoroscopic Images: 15 OR Radiation dosage index: 13.2 mGy. COMPARISON: No relevant prior comparison study available FINDINGS: The uterine cavity contour is unremarkable. There are no filling defects or abnormalities. Both fallopian tubes are patent with free peritoneal spillage bilaterally. RAD/Salpingogram IMPRESSION: Negative hysterosalpingogram. Electronically Signed: Rasheed Ayala MD at 8:53 EDT ,
--- OUTSIDE RECORDS SUMMARY | 2024-06-09 07:47 | XMS RPT_ITS | CCD ---
Author Organization [facility] Care Team Providers Care Price Analyst Name Role Phone Joel Howard Primary Care Provider Unavailabl e O'WAYNEAIDA JARA Attending Unavailable TON, JOEL ARMENDARIZ Primary Care Unavailable NEPIEDAD NOLASCO ANAI Referring Unavail able BAY, JOEL ARMENDARIZ Primary Care Unavailable O'WAYNEAIDA Attending Unavailable NEYLIOT NOLASCO, ANAI Referring Unavail able BAY, JOEL ARMENDARIZ Primary Care Unavailable O'WAYNEAIDA Attending Unavailable NEYLIOT NOLASCO ANAI Referring Unavail able CENTRAHOMA, JOEL ARMENDARIZ Primary Care Unavailable NERAYNAT NOLASCO, ANAI Attending Unavail able BAY, JOEL ARMENADRIZ Primary Care Unavailable NEYHART NOLASCO, ANAI Referring Unavail able JOSH NOLASCO ANAI Attending Unavail able CENTRAHOMA, JOEL ARMENDARIZ Primary Care Unavailable CENTRAHOMA, JOEL ARMENDARIZ Primary Care Unavailable DONNIE GHOTRA Attending Unavailable BAY, JOEL ARMENDARIZ Primary Care Unavailable NEYLIOT NOLASCO, ANAI Attending Unavail able Allergies Allergy Classification Reported Allergen(s) Allergy Type Date of Onset Reaction(s) Facility (6 sources) Penicillins; Translations: [PENICILLINS] Drug Allergy 09-01-2019 [facility] (14 sources) Penicillins Drug Allergy 09-01-2019 [facility] Medications Current Medications Medication Drug Class(es) Dates Sig (Normalized) Sig (Original) betamethasone 0.5 mg/ml / clotrimazole 10 mg/ml topical cream (3 sources) Azole Antifungal, Corticosteroid Start: 01-20-2022 End: 01-27-2022 clotrimazole-betame thasone (LOTRISONE) cream Apply 1 application to affected area twice daily for 7 days. 15 g 0 01/20/2022 01/27/2022 Active Comment on above: Apply 1 application to affected area twice daily for 7 days. diethylpropion hydrochloride 25 mg oral tablet (5 sources) Sympathomimetic Amine Anorectic Start: 09-07-2023 End: 12-06-2023 take 40-44.9 tablets by mouth three times daily diethylpropion HCl 25 mg tab Indications: Class 3 severe obesity with body mass index (BMI) of 40.0 to 44.9 in adult, unspecified obesity type, unspecified whether serious comorbidity present (HCC) Take 1 tablet by mouth three times a day for 90 days. 270 tablet 0 09/07/2023 12/06/2023 Active Start: 06-29-2023 End: 07-29-2023 take 40-44.9 tablets by mouth three times daily diethylpropion HCl 25 mg tab Indications: Class 3 severe obesity with body mass index (BMI) of 40.0 to 44.9 in adult, unspecified obesity type, unspecified whether serious comorbidity present (HCC) Take 1 tablet by mouth three times a day for 30 days. 90 tablet 1 06/29/2023 07/29/2023 Active Comment on above: Take 1 tablet by pee th three times a day for 30 days. Take 1 tablet by pee th three times a day for 90 days. levonorgestrel 0.134142 mg/hr intrauterine system (19 sources) Progestin, Progestin-containing Intrauterine Device Start: 2019 End: 2024 levonorgestrel (MIRENA) 20 mcg/24 hours (5 yrs) 52 mg IUD Indications: Encounter for IUD insertion 1 Each by INTRAUTERINE route as directed. 1 Each 09/21/2019 09/19/2024 Active Comment on above: 1 Each by INTRAUTERI NE route as directed. metroNIDAZOLE 500 mg oral tablet (2 sources) Nitroimidazole Antimicrobial Start: 2021 End: 2021 take 1 tablet by mouth twice daily metroNIDAZOLE (FLAGYL) 500 mg tablet Take 1 tablet by mouth twice daily for 7 days. 14 tablet 0 01/06/2022 01/06/2022 Discontinued Comment on above: Take 1 tablet by pee th twice daily for 7 days. semaglutide, weight loss, (WEGOVY) 0.25 mg/0.5 mL pen injector (2 sources) Start: 2022 End: 2022 inject 0.5 mL by subcutaneous injection every week semaglutide, weight loss, (WEGOVY) 0.25 mg/0.5 mL pen injector Inject 0.5 mL subcutaneously one time a week for 28 days. 2 mL 0 06/01/2023 06/29/2023 Active Comment on above: Inject 0.5 mL subcut aneously one time a week for 28 days. Completed/Discontinued Medications Medication Drug Class(es) Dates Sig (Normalized) Sig (Original) escitalopram 10 mg oral tablet (19 sources) Serotonin Reuptake Inhibitor Start: 05-04-2023 escitalopram oxalate (LEXAPRO) 10 mg tablet Start: 12-30-2022 take 1 tablet by mouth once es citalopram oxalate (LEXAPRO) 5 mg tablet Take 1 tablet by mouth every afternoon. 0 12/30/2022 Active Start: 12-26-2020 End: 01-20-2022 take 1 tablet by mouth once daily in the morning escitalopram oxalate (LEXAPRO) 10 mg tablet Take 10 mg by mouth every morning. 0 12/26/2020 01/20/2022 Discontinued Comment on above: Take 10 mg by mouth every morning. Take 1 tablet by pee th every afternoon. topiramate 50 mg oral tablet (7 sources) Start: 09-07-2023 take 1 tablet by mouth twice daily topiramate (TOPAMAX) 50 mg tablet TAKE 1 TABLET BY MOUTH TWICE A DAY 180 tablet 0 09/07/2023 Active Start: 06-29-2023 End: 09-27-2023 take 1 tablet by mouth once daily topiramate (TOPAMAX) 50 mg tablet Take 1 tablet by mouth once daily. 30 tablet 2 06/29/2023 09/27/2023 Active Start: 06-01-2023 take 1 tablet by pee th once daily at bedtime topiramate (TOPAMAX) 50 mg tablet Take 1 tablet by mouth daily at bedtime. 30 tablet 1 06/01/2023 Active Comment on above: Take 1 tablet by pee th daily at bedtime. Take 1 tablet by pee th once daily. TAKE 1 TABLET BY PEE TH TWICE A DAY Problems Active Problems Problem Classification Problem Date Documented Date Episodic/Chronic Female infertility (1 source) Female infertility; Translations: [Female infertility, unspecified] 04-27-2024 Chronic Immunizations and screening for infectious disease (7 sources) Patient encounter status; Translations: [Encounter for screening for infections with a predominantly sexual mode of transmission] Episodic Menstrual disorders (3 sources) Dysmenorrhea; Translations: [Dysmenorrhea, unspecified] Onset: 05-03-2024 04-27-2024 Chronic Nonmalignant breast conditions (1 source) Breast lump; Translations: [Unspecified lump in the left breast, upper outer quadrant] Episodic Other female genital disorders (1 source) Pruritus of vagina; Translations: [Other specified noninflammatory disorders of vagina] Episodic Other female genital disorders (1 source) Vaginal discharge; Translations: [Other specified noninflammatory disorders of vagina] Episodic Other female genital disorders (1 source) Vaginal irritation; Translations: [Other specified noninflammatory disorders of vagina] Episodic Other female genital disorders (1 source) Cyst of uterine adnexa; Translations: [Other noninflammatory disorders of ovary, fallopian tube and broad ligament] 05-03-2024 Episodic Other nutritional; endocrine; and metabolic disorders (1 source) Severe obesity; Translations: [Morbid (severe) obesity due to excess calories] 06-01-2023 Chronic Other nutritional; endocrine; and metabolic disorders (1 source) Morbid (severe) obesity due to excess calories; Translations: [Class 3 severe obesity with body mass index (BMI) of 40.0 to 44.9 in adult, unspecified obesity type, unspecified whether serious comorbidity present (HCC)] Onset: 06-29-2023 Chronic Other nutritional; endocrine; and metabolic disorders (1 source) Body mass index (BMI) 40.0-44.9, adult; Translations: [Class 3 severe obesity with body mass index (BMI) of 40.0 to 44.9 in adult, unspecified obesity type, unspecified whether serious comorbidity present (HCC)] Onset: 06-29-2023 Chronic Other nutritional; endocrine; and metabolic disorders (2 sources) Unintentional weight gain; Translations: [Abnormal weight gain] 04-16-2023 Episodic Unclassified (1 source) Acute low back pain, unspecified back pain laterality, unspecified whether sciatica present; Translations: [Acute low back pain, unspecified back pain laterality, unspecified whether sciatica present] Onset: 11-22-2023 Past or Other Problems Problem Classification Problem Date Documented Da te Episodic/Chronic Malaise and fatigue (8 sources) Malaise and fatigue; Translations: [Other malaise] Onset: 06-29-2023 06-01-2023 Episodic Spondylosis; intervertebral disc disorders; other back problems (10 sources) Acute low back pain; Translations: [Acute low back pain, unspecified back pain laterality, unspecified whether sciatica present] Onset: 07-08-2023 06-30-2023 Episodic Results Test Name Value Interpretation Reference Range Marguerite Villalta 06-03-2024 CNPN Telephone (OBGYWM) YAN HOPSON ([id number]) 1990 F Date Time Provider Department 06/03/24 RAISA CHAPMAN During your visit today, we recorded the following information about you: Raisa Sam RN 06/03/2024 8:25 AM Signed Patient started her menses yesterday. When she took out her tampon she noted a couple of pasty clumps. Today when she removed her tampon the blood was a darker brown similar to old blood. No abnormal pain or odor along with it. Patient questioning if this is normal. She is leaving for out of town today. Ok to leave a detailed message or send a Mychart message. TREY Wilkes Jennifer, MD 06/03/2024 9:18 AM Signed Yes, its normal. Tampons cannot absorb the blood once it clots Britt Fletcher LPN 06/03/2024 10:05 AM Signed Patient notified Allergies As of Date: 06/03/2024 Noted Allergy Reaction PENICILLINS 09/01/2019 2 - Rash Date Reviewed: 04/27/2024 Reviewed by: Tasneem Valenzuela MA - Fully Assessed Reason for Visit: Patient Question [0692] Prescriptions as of 06/03/2024 - levonorgestrel (MIRENA) 20 mcg/24 hours (5 yrs) 52 mg IUD 1 Each by INTRAUTERINE route as directed. Problem List As Of Date 06/03/2024 Noted Resolved Acute low back pain [M54.50] 07/08/2023 Malaise and fatigue [R53.81, R53.83] 09/07/2023 Encounter Status:Closed by BRITT FLETCHER on 06/03/24 Normal [facility] US Pelvison 05-03-2024 Indication Dysmenorrhea Impression The uterus is anteverted and measures 76 mm x 33 mm x 44 mm. The endometrial thickness is 5.2 mm. The right ovary measures 38 mm x 17 mm x 18 mm and contains a resolving hemorrhagic corpus luteum cyst. There is a right simple paraovarian/paratubal cyst that measures 17 mm x 14 mm x 12 mm. The left ovary measures 28 mm x 15 mm x 8 mm. There is no free fluid visualized. Recommendations Simple paraovarian/paratubal cyst, no follow up imaging is needed. Menstrual History LMP on 04/03/2024. Cycle: regular cycle. Contraception: none Method Transabdominal, transvaginal, 3D ultrasound examination, Color Doppler examination. View: Adequate visualization Uterus Uterus: Visualized Uterus position: anteverted Description of uterine malformations: none Myometrium: heterogeneous Endometrium: normal Cervix details: normal Uterus length 76 mm Uterus width 44 mm Uterus height 33 mm Uterus Vol 57.7 cm Endometrial thickness, total 5.2 mm Fibroids: No fibroids identified Polyps: No polyps identified Right Ovary Rt ovary: Visualized Rt ovary morphology: premenopausal normal follicular Rt ovary D1 38 mm Rt ovary D2 17 mm Rt ovary D3 18 mm Rt ovary Vol 6.1 cm Rt ovarian corpus luteum: resolving hemorrhagic corpus luteum Rt ovarian corpus luteum D1 16.7 mm Rt ovarian corpus luteum D2 13.1 mm Rt ovarian corpus luteum D3 11.7 mm Rt ovarian cyst D1 17 mm Rt ovarian cyst D2 14 mm Rt ovarian cyst D3 12 mm Rt ovarian cyst mean 14.3 mm Rt ovarian cyst vol 1.495 cm Rt ovarian cyst findings: Simple paraovarian/paratubal cyst Left Ovary Lt ovary: Visualized Lt ovary morphology: premenopausal normal follicular Lt ovary D1 28 mm Lt ovary D2 15 mm Lt ovary D3 8 mm Lt ovary Vol 1.7 cm Lt ovarian cyst(s): No cysts identified Cul de Sac Visualized. no free fluid visualized Performed By: Katja Graves RDMS Read By: Ajay Mariee M.D. MATERNAL MEDICINE [facility] Radiology Study observation (narrative) [facility] CNOVon 04-27-2024 CNOV Office Visit (OBGYWM ) YAN HOPSON ([id number]) 1990 F Date Time Provider Department 04/27/24 11:20 AM ANAI LAUREN OBGYWM During your visit today, we recorded the following information about you: Blood pressure Weight Last Period 122/72 122.9 kg 04/03/24 Anai Lauren MD 04/27/2024 3:09 PM Signed Yan Hopson is a 34 year old female who presents for discussion regarding fertility. Pt reports IUD was removed in october 2023 and her and partner have been actively trying since that time. Pt reports - since Mirena is out cycles are regular, does have some cramping with cycles. Light to moderate flow- lasting 3-4 days. 26-28 days, doing home ovulation kits with positive results on CD 18. Pt reports no h/o STDs other than HPV, has had BV in past. Pt and partner have never had children in past relationships. Pt is taking PNV. Neither of them smoke or use illicit drugs. Pt is active in the gym - [employer]. Only medical problem for partner is HTN which he is on lisinopril and metoprolol. Pt offers no other concerns today. 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 History LMP: 04/03/2024 (Approximate), Having periods Age at Menarche: Age at First : Age at Menopause: Consumer Loan Manager History Comments: Sexual Activity: Yes; Male Contraception: None PAST MEDICAL HISTORY No date: NEGATIVE MEDICAL HISTORY PAST SURGICAL HISTORY No date: TONSILLECTOMY HX Comment: age 15 FAMILY HISTORY Problem Relation Age of Onset Diabetes Mother Asthma Father COPD Father Breast Cancer Paternal Aunt Social History Tobacco Use Smoking status: Never Smokeless tobacco: Never Vaping Use Vaping status: Never Used Substance Use Topics Alcohol use: Yes Alcohol/week: 10.0 standard drinks of alcohol Types: 10 Cans of beer per week Drug use: Never Current Outpatient Medications Medication Sig levonorgestrel (MIRENA) 20 mcg/24 hours (5 yrs) 52 mg IUD 1 Each by INTRAUTERINE route as directed. No current facility-administered medications for this visit. Allergies As of Date: 04/27/2024 Allergen Noted Reaction PENICILLINS 09/01/2019 Rash Fully Assessed 04/27/2024 REVIEW OF SYSTEMS Abdomen: no pain Bladder: no dysuria.. Expanded ROS: GENERAL: No weight loss, malaise or fevers Allergies and current medication updated:Yes EXAM: BP 122/72 Wt 271 lb (122.9kg) LMP 04/03/2024 GENERAL: pleasant, female in no apparent distress HEENT: Normocephalic, atraumatic, mucus membranes moist, and no lesions NECK: Supple and full range of motion DERMATOLOGY: Normal, without lesions, non-icteric, and non-hirsute NEURO: alert and oriented x3,exam grossly non-focal EXTREMITIES: normal ASSESSMENT AND PLAN: Encounter Diagnosis ICD-10-CM 1. Dysmenorrhea N94.6 PELVIC US WHI 2. Encounter for fertility planning Z31.89 3. Female infertility N97.9 Discussed proceeding with Semen analysis and HSG and reasoning behind this. Pt will discuss with fiance and notify office how to proceed. Dicussed possible use of letrozole or clomid as well. Discussed referral to [facility] if desired. Recent labs were done and normal. I spent a total of 20 minutes on the date of the service which included preparing to see the patient, [id number] patient care, completing clinical documentation, obtaining and/or reviewing separately obtained history, performing a medically appropriate examination, counseling and educating the patient/family/caregive r, and ordering medications, tests, or procedures. Anai Dillon MD Allergies As of Date: 04/27/2024 Noted Allergy Reaction PENICILLINS 09/01/2019 2 - Rash Date Reviewed: 04/27/2024 Reviewed by: Tasneem Valenzuela MA - Fully Assessed Primary Visit Diagnosis:Dysmenorrhea [N94.6] Other Visit Diagnoses:Encounter for fertility planning [Z31.89] Female infertility [N97.9] Order(s):PELVIC US WHI [[id number]] Order #: [id number]: 1 FUTURE Prescriptions as of 04/27/2024 - levonorgestrel (MIRENA) 20 mcg/24 hours (5 yrs) 52 mg IUD 1 Each by INTRAUTERINE route as directed. Problem List As Of Date 04/27/2024 Noted Resolved Acute low back pain [M54.50] 07/08/2023 Malaise and fatigue [R53.81, R53.83] 09/07/2023 Encounter Status:Closed by ANAI NOLASCO on 04/27/24 [facility] CNOVon 11-11-2023 CNOV Office Visit (OBGYWM ) YAN HOPSON ([id number]) 1990 F Date Time Provider Department 11/11/23 3:15 PM DONNIE GHOTRA During your visit today, we recorded the following information about you: Pulse Respiration Blood pressure Weight 96/minute 14/minute 116/62 125.3 kg Height 1.778 m Donnie Ghotra APRN.DOUBLE END TENONER SETTER 11/11/2023 3:45 PM Signed Hostage Negotiator offered: Patient lissethChristina Yan presents for removal of IUD due to desire for . UNIVERSAL PROTOCOL / SAFETY CHECKLIST Procedure to be Performed: IUD removal- Mirena Sign In: A Moment of CARE was completed. Personnel directly involved with the procedure wore the appropriate PPE (Personal Protective Equipment). Patient/Surrogate Stated/Verified: PATIENT VERIFIED(optional for EMERGENT procedures): Patient name, Date of , Relevant allergies, and The intended procedure Time Out Communication: Intended patient and procedure match the source documents. Consent documented and matches the intended procedure. Sign Out: SIGN OUT (optional for EMERGENT procedures): No specimen collected. All instruments, equipment, possible retained foreign bodies accounted for. Post-procedure follow-up management communicated and Plan of Care Visit completed when applicable. PROCEDURE: Speculum placed in vagina, IUD string visualized and grasped with ring forceps. ASSESSMENT/PLAN: IUD removed without difficulty, intact, and patient tolerated procedure well. Contraception plans: none Reviewed pre-conception guidelines including folic acid supplementation, optimal timing of intercourse, avoidance of smoking, alcohol, exposure to environmental chemicals and need for evaluation if not within 12 months. Donnie Ghotra APRN.DOUBLE END TENONER SETTER Referring Provider: ANAI LAUREN [[id number]] Allergies As of Date: 11/11/2023 Noted Allergy Reaction PENICILLINS 09/01/2019 2 - Rash Date Reviewed: 11/11/2023 Reviewed by: Donnie Ghotra APRN.DOUBLE END TENONER SETTER - Fully Assessed Reason for Visit: IUD Removal [1950] Primary Visit Diagnosis:Encounter for IUD removal [Z30.432] Prescriptions as of 11/11/2023 - diethylpropion HCl 25 mg tab Take 1 tablet by mouth three times a day for 90 days. - levonorgestrel (MIRENA) 20 mcg/24 hours (5 yrs) 52 mg IUD 1 Each by INTRAUTERINE route as directed. Problem List As Of Date 11/11/2023 Noted Resolved Acute low back pain [M54.50] 07/08/2023 Malaise and fatigue [R53.81, R53.83] 09/07/2023 Medications Discontinued During This Encounter Prescriptions - escitalopram oxalate (LEXAPRO) 10 mg tablet (Discontinued) - topiramate (TOPAMAX) 50 mg tablet (Discontinued) TAKE 1 TABLET BY MOUTH TWICE A DAY - escitalopram oxalate (LEXAPRO) 5 mg tablet (Discontinued) Take 1 tablet by mouth every afternoon. Encounter Status:[facility] YAN HOPSON ([id number]) 1990 F Date Time Provider Department 09/08/23 ANAI LAUREN OBGYWKirk During your visit today, we recorded the following information about you: Patricia Manrique LPN 09/08/2023 2:38 PM Signed Received denial from pt's insurance for Diethylpropion HCL. This medication is an exclusion on the pt's insurance plan. Please advise. PRAVEEN Gomez Deidre, MD 09/09/2023 8:56 AM Signed Please do not do PAs for Diethylpropion or phentermine as they are cheap with good rx. Patricia Manrique LPN 09/11/2023 2:20 PM Signed Noted. Patricia Manrique LPN Allergies As of Date: 09/08/2023 Noted Allergy Reaction PENICILLINS 09/01/2019 2 - Rash Date Reviewed: 09/07/2023 Reviewed by: Tasneem Valenzuela Ma - Fully Assessed Reason for Visit: Insurance Authorization [[id number]] Prescriptions as of 09/11/2023 - diethylpropion HCl 25 mg tab Take 1 tablet by mouth three times a day for 90 days. - topiramate (TOPAMAX) 50 mg tablet TAKE 1 TABLET BY MOUTH TWICE A DAY - escitalopram oxalate (LEXAPRO) 10 mg tablet - escitalopram oxalate (LEXAPRO) 5 mg tablet Take 1 tablet by mouth every afternoon. - levonorgestrel (MIRENA) 20 mcg/24 hours (5 yrs) 52 mg IUD 1 Each by INTRAUTERINE route as directed. Problem List As Of Date 09/08/2023 Noted Resolved Acute low back pain [M54.50] 07/08/2023 Malaise and fatigue [R53.81, R53.83] 09/07/2023 Encounter Status:Closed by PATRICIA MANRIQUE on 09/11/23 [facility] CNOVon 09-07-2023 CNOV Office Visit (OBGYWM ) YAN HOPSON ([id number]) 1990 F Date Time Provider Department 09/07/23 9:50 AM ANAI LAUREN During your visit today, we recorded the following information about you: Pulse Blood pressure Weight 61/minute 122/80 122.5 kg Anai Lauren MD 09/07/2023 11:34 AM Signed Some documentation from previous visit of 06/29/2023 was copied and pasted, documentation has been reviewed and edited as necessary for today's visit. Patient Summary: Yan is a 33 year old female who presents for follow-up evaluation of her obesity/weight management to treat and prevent relatedco-morbidities. In our previous visits we have discussed lifestyle intervention including a nutrition recommendations and physical activity optimization. Her last office visit was 2 months ago. Assessment/plan from last visit: -continue topiramate -will start diethylpropione- dose up to 3 times daily reviewed with patient. ETOH has been limited, reviewed do not use in combination with any excessive ETOH use. -continue tracking -protein and lower carb, whole foods -planning for holidays reviewed -SE and risks of diethylpropion reviewed -offered PT for back if desired- will call if still having pain - low impact walking and stretching at this time. Interval History - taking topiramate in morning - no SE - Diethylpropion- helps with serving sizes, takes typically 2 x day. - ETOH- has decreased significantly. 2-3 once or twice per week. No beer. -feels like medications- help eat slower, last faster, not hungry for snacks, food noise gone, not snacking. -B-Protein shake -L- [employer] Meals- or salad, pears, veggies, meat -D- Meat and Veggie -Energy improving -Goal- tracking food, staying consistent when working out. - Proud- making health a priority Exercise: Started [employer]- was sick over holidays- getting back on it. 30-40 min, 7 days per week, 2 days of active recovery. Walking dogs every day- 8000 steps per day. Walking pad under desk. Stress: stable Sleep: 7-8 hours - Last Wt 06/01/23 : 284 lb (128.8 kg) 5% weight loss = 270 lbs, 10% weight loss = 256 lbs Last 2 Encounter Wt Readings: Date: Wt: 06/29/2023 279 lb (126.6 kg) 06/01/2023 284 lb (128.8 kg) Weight loss since last vist: 9lbs 09/07/2023 - 270lbs (lowest 264 at home) Anti-Obesity Medications IUD in place ETOH- would not recommend wellbutrin/naltrexone Estimated Creatinine Clearance: 151 mL/min (based on SCr of 0.76 mg/dL). PAST MEDICAL HISTORY Diagnosis Date NEGATIVE MEDICAL HISTORY Current Outpatient Medications Medication Sig Dispense Refill topiramate (TOPAMAX) 50 mg tablet Take 1 tablet by mouth once daily. 30 tablet 2 escitalopram oxalate (LEXAPRO) 10 mg tablet escitalopram oxalate (LEXAPRO) 5 mg tablet Take 1 tablet by mouth every afternoon. levonorgestrel (MIRENA) 20 mcg/24 hours (5 yrs) 52 mg IUD 1 Each by INTRAUTERINE route as directed. 1 Each 0 No current facility-administered medications for this visit. ROS Denies CP, Anxiety, Palpitations, Brain fog, paraesthesia BP 122/80 Pulse 61 Wt 270 lb (122.5 kg) LMP 04/21/2022 (Approximate) SpO2 100% BMI 38.74 kg/m? Physical Exam Waist circumference- 44.5-->44 --> 41 Assessment/Plan: Yan Hopson is a 33 year old yo female with class 3 obesity who presented today for follow up for supervised weight lossto treat and prevent related co-morbidities. - spot checking protein and carbohydrates - Cutting back on ETOH- doing a good job- only 2-3 drinks maybe 1-2 times per week - Routine Exercise- SMART goal with crossing off days on calendar reviewed - Increase topiramate to BID- food noise - Continue Diethylpropion BID to TID - considering this summer- reviewed no Topiramate prior to starting trying. (R53.81, R53.83) Malaise and fatigue (primary encounter diagnosis) (M54.50) Acute low back pain, unspecified back pain laterality, unspecified whether sciatica present (E66.01, Z68.41) Class 3 severe obesity with body mass index (BMI) of 40.0 to 44.9 in adult, unspecified obesity type, unspecified whether serious comorbidity present (HCC) I spent a total of 35 minutes on the date of the service which included preparing to see the patient, [id number] patient care, completing clinical documentation, obtaining and/or reviewing separately obtained history, performing a medically appropriate examination, counseling and educating the patient/family/caregive r, and ordering medications, tests, or procedures. Follow up in 3 months MD Josh Robb Deidre, MD 09/07/2023 11:34 AM Signed Why Is Protein So Important for Weight loss? consuming more protein not only reduces body weight but enhances body composition by decreasing fat mass while preserving fat-free mass (more content not included)... Normal [facility] CNTHERAPYon 08-04-2023 CNTHERAPY OT/PT/Speech Visit (PTWS) YAN HOPSON ([id number]) 1990 F Date Time Provider Department 08/04/23 9:00 AM AIDA HOANG PTCHAR Date Time Provider Department [place] 08/04/2023 9:00 AM [id number] HOANG PTCHAR [place] Reason for Visit: PT Discharge [752] Primary Visit Diagnosis:Acute low back pain, unspecified back pain laterality, unspecified whether sciatica present [M54.50] Allergies As of Date: 08/04/2023 Noted Allergy Reaction PENICILLINS 09/01/2019 2 - Rash Date Reviewed: 06/29/2023 Reviewed by: Tasneem Valenzuela Ma - Fully Assessed Prescriptions as of 09/04/2023 - topiramate (TOPAMAX) 50 mg tablet Take 1 tablet by mouth once daily. - escitalopram oxalate (LEXAPRO) 10 mg tablet - escitalopram oxalate (LEXAPRO) 5 mg tablet Take 1 tablet by mouth every afternoon. - levonorgestrel (MIRENA) 20 mcg/24 hours (5 yrs) 52 mg IUD 1 Each by INTRAUTERINE route as directed. Office Helper Clerical: Therapy (PT/OT/Speech/Resp) ID: [id number] 08/04/2023 9:23 AM Author: AIDA HOANG Signed by AIDA HOANG PT on 08/04/2023 at 9:23 AM Document text: Program_ID:[id number] Access Code: [email or web address] URL: [email or web address]/ Date: 08-04-2023 Prepared By: Aida Hoang Program Notes Exercises - Prone Press Up - 2-3 x daily - 7 x weekly - 4-5 sets - 5 reps - Bird Dog - 1 x daily - 7 x weekly - 2-3 sets - 10-15 reps - Supine Bridge - 1 x daily - 7 x weekly - 3 sets - 10-15 reps - Sidelying Hip Circles - 1 x daily - 7 x weekly - 4 sets - reps - Sidelying Lumbar Rotation Stretch - 1-2 x daily - 7 x weekly - 1 sets - 1 reps Normal [facility] THERAPY NTon 08-04-2023 THERAPY NT HNO ID: [id number] Author: Aida Hoang PT Service: ? Author Type: Physical Therapist Type: Therapy (PT/OT/Speech/Resp) Filed: 08/04/2023 9:23 AM Note Text: Program_ID:[id number] Access Code: [email or web address] URL: [email or web address]/ Date: 08-04-2023 Prepared By: Aida Hoang Program Notes Exercises - Prone Press Up - 2-3 x daily - 7 x weekly - 4-5 sets - 5 reps - Bird Dog - 1 x daily - 7 x weekly - 2-3 sets - 10-15 reps - Supine Bridge - 1 x daily - 7 x weekly - 3 sets - 10-15 reps - Sidelying Hip Circles - 1 x daily - 7 x weekly - 4 sets - reps - Sidelying Lumbar Rotation Stretch - 1-2 x daily - 7 x weekly - 1 sets - 1 reps Normal [facility] CNTHERAPYon 07-28-2023 CNTHERAPY OT/PT/Speech Visit (PTWS) YAN HOPSON ([id number]) 1990 F Date Time Provider Department 07/28/23 10:30 AM AIDA HOANG PTWS Date Time Provider Department Center 07/28/2023 10:30 AM [id number] HOANG PTWS [facility] Reason for Visit: Physical Therapy [503] Primary Visit Diagnosis:Acute low back pain, unspecified back pain laterality, unspecified whether sciatica present [M54.50] Allergies As of Date: 07/28/2023 Noted Allergy Reaction PENICILLINS 09/01/2019 2 - Rash Date Reviewed: 06/29/2023 Reviewed by: Bianca Ma, Tasneem - Fully Assessed Prescriptions as of 07/28/2023 - diethylpropion HCl 25 mg tab Take 1 tablet by mouth three times a day for 30 days. - topiramate (TOPAMAX) 50 mg tablet Take 1 tablet by mouth once daily. - escitalopram oxalate (LEXAPRO) 10 mg tablet - escitalopram oxalate (LEXAPRO) 5 mg tablet Take 1 tablet by mouth every afternoon. - levonorgestrel (MIRENA) 20 mcg/24 hours (5 yrs) 52 mg IUD 1 Each by INTRAUTERINE route as directed. Office Helper Clerical: Therapy (PT/OT/Speech/Resp) ID: [id number] 07/28/2023 10:54 AM Author: AIDA HOANG Signed by AIDA HOANG PT on 07/28/2023 at 10:54 AM Document text: Program_ID:[id number] Access Code: [email or web address] URL: [email or web address] Date: 07-28-2023 Prepared By: Aida Hoang Program Notes Exercises - Prone Press Up - 2-3 x daily - 7 x weekly - 4-5 sets - 5 reps - Prone Hip Extension - 1 x daily - 7 x weekly - 2-3 sets - 10-15 reps - Bird Dog - 1 x daily - 7 x weekly - 2-3 sets - 10-15 reps - Supine Bridge - 1 x daily - 7 x weekly - 3 sets - 10-15 reps Normal [facility] THERAPY NTon 07-28-2023 THERAPY NT HNO ID: [id number] Author: Aida Hoang PT Service: ? Author Type: Physical Therapist Type: Therapy (PT/OT/Speech/Resp) Filed: 07/28/2023 10:54 AM Note Text: Program_ID:[id number] Access Code: [email or web address] URL: [email or web address]/ Date: 07-28-2023 Prepared By: Aida Hoang Program Notes Exercises - Prone Press Up - 2-3 x daily - 7 x weekly - 4-5 sets - 5 reps - Prone Hip Extension - 1 x daily - 7 x weekly - 2-3 sets - 10-15 reps - Bird Dog - 1 x daily - 7 x weekly - 2-3 sets - 10-15 reps - Supine Bridge - 1 x daily - 7 x weekly - 3 sets - 10-15 reps Normal [facility] CNTHERAPYon 07-08-2023 CNTHERAPY OT/PT/Speech Visit (PTWS) YAN HOPSON ([id number]) 1990 F Date Time Provider Department 07/08/23 8:15 AM AIDA HOANG PTWS Date Time Provider Department [place] 07/08/2023 8:15 AM [id number] HOANG PTWS [facility] Reason for Visit: PT Eval [747] Primary Visit Diagnosis:Acute low back pain, unspecified back pain laterality, unspecified whether sciatica present [M54.50] Allergies As of Date: 07/08/2023 Noted Allergy Reaction PENICILLINS 09/01/2019 2 - Rash Date Reviewed: 06/29/2023 Reviewed by: Tasneem Valenzuela Ma - Fully Assessed Prescriptions as of 07/08/2023 - diethylpropion HCl 25 mg tab Take 1 tablet by mouth three times a day for 30 days. - topiramate (TOPAMAX) 50 mg tablet Take 1 tablet by mouth once daily. - escitalopram oxalate (LEXAPRO) 10 mg tablet - escitalopram oxalate (LEXAPRO) 5 mg tablet Take 1 tablet by mouth every afternoon. - levonorgestrel (MIRENA) 20 mcg/24 hours (5 yrs) 52 mg IUD 1 Each by INTRAUTERINE route as directed. Office Helper Clerical: Therapy (PT/OT/Speech/Resp) ID: [id number] 07/08/2023 8:40 AM Author: AIDA HOANG Signed by AIDA HOANG PT on 07/08/2023 at 8:40 AM Document text: Program_ID:[id number] Access Code: [email or web address] URL: [email or web address] Date: 07-08-2023 Prepared By: Aida Hoang Program Notes Exercises - Prone Press Up - 2-3 x daily - 7 x weekly - 4-5 - 5 Normal [facility] THERAPY NTon 07-08-2023 THERAPY NT HNO ID: [id number] Author: Aida Hoang PT Service: ? Author Type: Physical Therapist Type: Therapy (PT/OT/Speech/Resp) Filed: 07/08/2023 8:40 AM Note Text: Program_ID:[id number] Access Code: [email or web address] URL: [email or web address]/ Date: 07-08-2023 Prepared By: Aida Hoang Program Notes Exercises - Prone Press Up - 2-3 x daily - 7 x weekly - 4-5 - 5 Normal [facility] CNOVon 06-29-2023 CNOV Office Visit (OBGYWM ) YAN HOPSON ([id number]) 1990 F Date Time Provider Department 06/29/23 2:00 PM ANAI LAUREN OBGYWM During your visit today, we recorded the following information about you: Pulse Blood pressure Weight 121/minute 142/84 126.6 kg Anai Lauren MD 06/29/2023 5:36 PM Signed Some documentation from previous visit of 06/01/23 was copied and pasted, documentation has been reviewed and edited as necessary for today's visit. Patient Summary: Yan is a 33 year old female who presents for follow-up evaluation of her obesity/weight management to treat and prevent relatedco-morbidities. In our previous visits we have discussed lifestyle intervention including a nutrition recommendations and physical activity optimization. Her last office visit was 1 month ago. Assessment/plan from last visit: -high protein/low carb -whole foods -cut down ETOH -tracking food -exercise/walking -start topiramate Interval History Went to [place] and [place]- had back injury- improving but still not 100% Water intake is high 160 oz Steps- 57495 steps was goal, 8500 was low. Then back injury but getting better. Proud of - made her health a priorty- taken in seriously. Is very happy with ETOH- does not have desire, many days on her log where has zero drinks, or only 1-2. But is not having multiple like she was before. Tracking protein,carbs and ETOH (which has been minimal) Feels medication is helping to decrease appetite and snacking. Goal-be c.w walking dogs at least once per day. 2x week at gym. Keep logging. Exercise: decreased- with back now but was daily Stress: stable Sleep: stable - Last Wt 06/01/23 : 284 lb (128.8 kg) 5% weight loss = 270 lbs, 10% weight loss = 256 lbs Last 2 Encounter Wt Readings: Date: Wt: 06/29/2023 279 lb (126.6 kg) 06/01/2023 284 lb (128.8 kg) Weight loss since last vist: 5lbs Weight and Change in Weight Flowsheet Row Most Recent Value Weight 279 lb (126.6 kg) Change in Weight -2.268 kg Change in Weight Since (Calculated) kg 0 kg Anti-Obesity Medications >Phentermine: No uncontrolled HTN, No CVD Hx or hx of seizure disorder. No MAOI inhibitor use. No drug abuse hx. Crcl > 15. >Topiramate/zonisamide: No seizure or kidney stone hx. hx of migraines, no hx of poor sleep. yes Child bearing age. >Qsymia: see above >Contrave: No contraindications. Could affect mood. No uncontrolled HTN or hx of seizure disorder. No MAOI inhibitor use. No opiate use. >Saxenda/Wegovy/Ozempic : Cost. Ins coverage? >Metformin: No contraindications or medication interactions. eGFR > 30. Estimated Creatinine Clearance: 151 mL/min (based on SCr of 0.76 mg/dL). PAST MEDICAL HISTORY Diagnosis Date NEGATIVE MEDICAL HISTORY Current Outpatient Medications Medication Sig Dispense Refill escitalopram oxalate (LEXAPRO) 10 mg tablet semaglutide, weight loss, (WEGOVY) 0.25 mg/0.5 mL pen injector Inject 0.5 mL subcutaneously one time a week for 28 days. 2 mL 0 topiramate (TOPAMAX) 50 mg tablet Take 1 tablet by mouth daily at bedtime. 30 tablet 1 escitalopram oxalate (LEXAPRO) 5 mg tablet Take 1 tablet by mouth every afternoon. levonorgestrel (MIRENA) 20 mcg/24 hours (5 yrs) 52 mg IUD 1 Each by INTRAUTERINE route as directed. 1 Each 0 No current facility-administered medications for this visit. ROS Denies Paraesthesia, brain fog BP 142/84 Pulse (!) 121 Wt 279 lb (126.6 kg) LMP 04/21/2022 (Approximate) SpO2 98% BMI 40.03 kg/m? Physical Exam Waist circumference- 44 down from 44.5 Assessment/Plan: Yan Hopson is a 33 year old yo female with class 3obesity who presented today for follow up for supervised weight lossto treat and prevent related co-morbidities. -continue topiramate -will start diethylpropione- dose up to 3 times daily reviewed with patient. ETOH has been limited, reviewed do not use in combination with any excessive ETOH use. -continue tracking -protein and lower carb, whole foods -planning for holidays reviewed -SE and risks of diethylpropion reviewed -offered PT for back if desired- will call if still having pain - low impact walking and stretching at this time. I spent a total of 40 minutes on the date of the service which included preparing to see the patient, [id number] patient care, completing clinical documentation, obtaining and/or reviewing separately obtained history, performing a medically appropriate examination, counseling and educating the patient/family/caregive r, and ordering medications, tests, or procedures. Follow up in 4-6 weeks MD Josh Robb Deidre, MD 06/29/2023 5:36 PM Addendum DIETHYLPROPION- Usual Adult Dose for Obesity: IMMEDIATE-RELEASE: 25 mg orally 3 times a day, 1 hour before meals, and in mid-evening if desire (more content not included)... Normal [facility] Vital Signs Date Time Vital Sign Value Performing Clinician Faci brayden 04-27-2024 11:040 Body mass index (BMI) [Ratio] 38.88 kg/m2 Anai Nolasco MD Work Phone: [facility] 04-27-2024 11:13040 Body weight 122.92 kg Anai Nolasco MD Work Phone: [facility] 04-27-2024 11:13040 Diastolic blood pressure 72 mm[Hg] Anai Nolasco MD Work Phone: [facility] 04-27-2024 11:130400 Systolic blood pressure 122 mm[Hg] Anai Nolasco MD Work Phone: [facility] 06-01-2023 15:15-0400 Body weight 128.82 kg Anai Nolasco MD Work Phone: [facility] 06-01-2023 15:15-0400 Diastolic blood pressure 86 mm[Hg] Anai Nolasco MD Work Phone: [facility] 06-01-2023 15:15-0400 Heart rate 67 /min Anai Nolasco MD Work Phone: [facility] 06-01-2023 15:15-0400 SaO2% (BldA) [Mass fraction] 99 % Anai Nolasco MD Work Phone: [facility] 06-01-2023 15:15-0400 Systolic blood pressure 138 mm[Hg] Anai Nolasco MD Work Phone: [facility] 04-16-2023 10:53-0400 Body height 177.8 cm Anai Nolasco MD Work Phone: [facility] 04-16-2023 10:53-0400 Body weight 125.19 kg Anai Nolasco MD Work Phone: [facility] 04-16-2023 10:53-0400 Diastolic blood pressure 80 mm[Hg] Anai Nolasco MD Work Phone: [facility] 04-16-2023 10:53-0400 Systolic blood pressure 122 mm[Hg] Anai Nolasco MD Work Phone: [facility] 05-02-2022 10:06-0400 Body weight 108.86 kg Olivia Petersen APRN.CNP Work Phone: [facility] 05-02-2022 10:06-0400 Diastolic blood pressure 84 mm[Hg] Olivia Petersen APRN.DOUBLE END [employer]ONER [employer]TER Work Phone: [facility] 05-02-2022 10:06-0400 Systolic blood pressure 118 mm[Hg] Olivia Petersen PROVER.DOUBLE END [employer]ONER SETTER Work Phone: [facility] 01-20-2022 07:54-0400 Body weight 112.49 kg Chelsie Amadou PROVER.DOUBLE END [employer]TER Work Phone: [facility] 01-20-2022 07:54-0400 Diastolic blood pressure 60 mm[Hg] Chelsie Anderson PROVER.DOUBLE END [employer]TER Work Phone: [facility] 01-20-2022 07:54-0400 Systolic blood pressure 124 mm[Hg] Chelsie Anderson PROVER.DOUBLE END [employer]ER [employer]TER Work Phone: [facility] 01-02-2022 07:37-0400 Body weight 113.22 kg Olivia Petersen PROVER.DOUBLE END [employer]ONER [employer]TER Work Phone: [facility] 01-02-2022 07:37-0400 Diastolic blood pressure 70 mm[Hg] Olivia Petersen PROVER.DOUBLE END [employer]ER [employer]TER Work Phone: [facility] 01-02-2022 07:37-0400 Systolic blood pressure 118 mm[Hg] Olivia Petersen PROVER.DOUBLE END [employer]ER [employer]TER Work Phone: [facility] Encounters Encounter Date Encounter Type Care Provider Facility Start: 06-03-2024 End: 06-03-2024 Telephone encounter Raisa Chapman MD Work Phone: OB/Gynecology Comment on above: Patient Question Start: 05-09-2024 End: 05-11-2024 ambulatory Anai Nolasco MD Work Phone: OB/Gynecology Start: 05-09-2024 End: 05-11-2024 Manual pelvic examination Anai Nolasco MD Work Phone: OB/Gynecology Comment on above: PELVIC US Start: 05-03-2024 End: 05-03-2024 ambulatory JOEL HOWARD OB/Gynecology Start: 05-03-2024 End: 05-03-2024 Patient encounter procedure i Tech 1 [employer] [facility] [employer] OB/Gynecology Start: 04-27-2024 End: 04-27-2024 ambulatory ANAI NOLASCO Facility:[facility] Start: 04-27-2024 End: 04-27-2024 Patient encounter procedure Anai Nolasco MD Work Phone: OB/Gynecology Comment on above: Dysmenorrhea (Primar y Dx); Encounter for fertility planning; Female infertility Start: 11-11-2023 End: 11-11-2023 ambulatory [facility] Facility:[facility] Start: 10-09-2023 Orders Only Anai Nolasco MD Work Phone: OB/Gynecology Comment on above: Encounter for IUD re moval (Primary Dx) Start: 09-07-2023 End: 09-07-2023 [facility] Facility:[facility] Start: 08-04-2023 End: 08-04-2023 ambulatory AIDA O'WAYNE Facility:[facility] Start: 07-28-2023 End: 07-28-2023 ambulatory Aida O'Wayne PT [facility] Physical Therapy Comment on above: Acute low back pain, unspecified back pain laterality, unspecified whether sciatica present (Primary Dx) Start: 07-08-2023 End: 07-08-2023 ambulatory Aida O'Wayne PT [facility] Physical Therapy Comment on above: Acute low back pain, unspecified back pain laterality, unspecified whether sciatica present (Primary Dx) Start: 06-30-2023 ambulatory Anai Nolasco MD Work Phone: OB/Gynecology Comment on above: Physical Therapy DIETHYLPROPION Start: 06-29-2023 End: 06-29-2023 ambulatory [facility] Facility:[facility] Start: 06-01-2023 End: 06-01-2023 Patient encounter procedure Anai Nolasco MD Work Phone: OB/Gynecology Comment on above: Malaise and fatigue (Primary Dx); Unintended weight gain; Class 3 severe obesity with body mass index (BMI) of 40.0 to 44.9 in adult, unspecified obesity type, unspecified whether serious comorbidity present (HCC) Start: 06-01-2023 Telephone encounter Anai Nolasco MD Work Phone: OB/Gynecology Comment on above: Med Change Request Start: 04-18-2023 ambulatory Anai Nolasco MD Work Phone: OB/Gynecology Comment on above: Jun 01 Start: 04-16-2023 End: 04-16-2023 Patient encounter procedure Anai Nolasco MD Work Phone: OB/Gynecology Comment on above: Encounter for gyneco logical examination (general) (routine) without abnormal findings (Primary Dx); Screening for thyroid disorder; Encounter for vitamin deficiency screening; Encounter for screening for diabetes mellitus; Unintended weight gain; Screening cholesterol level Start: 04-16-2023 End: 04-16-2023 Patient encounter status Anai Nolasco MD Work Phone: [facility] Start: 05-02-2022 End: 05-02-2022 Patient encounter procedure Olivia Petersen APRN.DOUBLE END [employer]ONER [employer]TER Work Phone: OB/Gynecology Comment on above: Breast lump on left side at 1 o'clock position (Primary Dx) Start: 01-23-2022 Telephone encounter Chelsie chow PROVER.DOUBLE END [employer]ER SETTER Work Phone: OB/Gynecology Comment on above: Results Start: 01-21-2022 Telephone encounter Anai Nolasco MD Work Phone: OB/Gynecology Comment on above: Results Start: 01-20-2022 End: 01-20-2022 Patient encounter procedure Chelsie Tobar PROVER.DOUBLE END [employer]TER Work Phone: OB/Gynecology Comment on above: Vaginal irritation ( Primary Dx) Start: 01-06-2022 Telephone encounter Chelsie chow PROVER.DOUBLE END [employer]ER SETTER Work Phone: OB/Gynecology Comment on above: Results Start: 01-02-2022 End: 01-02-2022 Patient encounter procedure Olivia Petersen APRN.DOUBLE END [employer]ER SETTER Work Phone: OB/Gynecology Comment on above: Vagina itching (Prim warren Dx); Vaginal discharge; Screen for STD (sexually transmitted disease) Procedures Date Procedure Procedure Detail Performing Clinician Start: 05-03-2024 Us pelvic nonobstetr ic real-time image complete Anai Nolasco MD Work Phone: Plan of Treatment Date Care Activity Detail Author Start: 09-20-2028 Urine microalbumin profile DTaP,Tdap,Td Vaccine (7 - Td or Tdap) [facility] Start: 02-11-2027 HPV TESTING HPV TESTING [facility] Start: 02-11-2027 PAP TESTING PAP TESTING [facility] Start: 02-11-2027 Screening for malign ant neoplasm of cervix [facility] Start: 01-16-2026 HPV TESTING HPV TESTING [facility] Start: 01-16-2026 PAP TESTING PAP TESTING [facility] Start: 05-03-2024 End: 05-03-2024 ambulatory 05/03/2024 8:00 AM EDT Procedure OB/Gynecology [address] [place] [address] Dysmenorrhea [N94.6] OB/Gynecology Comment on above: Dysmenorrhea [N94.6] Start: 04-27-2024 End: 04-27-2025 US Pelvis PELVIC US [facility] Routine Dysmenorrhea Expected: 04/27/2024, Expires: 04/27/2025 [facility] Work Phone: Comment on above: Expected: 04/27/2024 , Expires: 04/27/2025 Start: 04-17-2024 Covid-19 Vaccine () Covid-19 Vaccine () [facility] Start: 04-17-2024 Covid-19 Vaccine () Covid-19 Vaccine () [facility] Start: 04-17-2024 Influenza vaccination Influenza Vacc ine (#1) [facility] Start: 08-17-2023 Depression Assessment Depression Ass essment [facility] Start: 04-17-2023 Covid-19 Vaccine () Covid-19 Vaccine () [facility] Start: 04-17-2023 Influenza vaccination [facility] Start: 04-16-2023 End: 06-16-2023 25-hydroxyvitamin D3 [Mass/volume] in Serum or Plasma VITAMIN D 25 HYDROXY Lab Routine Encounter for vitamin deficiency screening Expected: 04/16/2023, Expires: 06/16/2023 [facility] Work Phone: Comment on above: Expected: 04/16/2023 , Expires: 06/16/2023 Start: 04-16-2023 End: 06-16-2023 Comprehensive metabolic 2000 panel - Serum or Plasma COMP METABOLIC PANEL Lab Routine Encounter for screening for diabetes mellitus Expected: 04/16/2023, Expires: 06/16/2023 [facility] Work Phone: Comment on above: Expected: 04/16/2023 , Expires: 06/16/2023 Start: 04-16-2023 End: 06-16-2023 Hemoglobin A1c in Blood HGB A1C Lab Routine Encounter for screening for diabetes mellitus Expected: 04/16/2023, Expires: 06/16/2023 [facility] Work Phone: Comment on above: Expected: 04/16/2023 , Expires: 06/16/2023 Start: 04-16-2023 End: 06-16-2023 Insulin [Units/volume] in Serum or Plasma INSULIN ASSAY BLOOD Lab Routine Encounter for screening for diabetes mellitus Expected: 04/16/2023, Expires: 06/16/2023 [facility] Work Phone: Comment on above: Expected: 04/16/2023 , Expires: 06/16/2023 Start: 04-16-2023 End: 06-16-2023 Lipid 1996 panel - Serum or Plasma LIPID PANEL BASIC Lab Routine Screening cholesterol level Expected: 04/16/2023, Expires: 06/16/2023 [facility] Work Phone: Comment on above: Expected: 04/16/2023 , Expires: 06/16/2023 Start: 04-16-2023 End: 06-16-2023 Thyrotropin [Units/volume] in Serum or Plasma TSH BLD Lab Routine Screening for thyroid disorder Unintended weight gain Expected: 04/16/2023, Expires: 06/16/2023 [facility] Work Phone: Comment on above: Expected: 04/16/2023 , Expires: 06/16/2023 Start: 08-17-2022 DEPRESSION ASSESSMENT DEPRESSION ASS ESSMENT [facility] Start: 04-17-2022 Influenza vaccination [facility] Start: 05-01-2021 COVID-19 VACCINE (3 - Booster for Moderna series) COVID-19 VACCINE (3 - Booster for Moderna series) [facility] Start: 02-13-2021 HPV VACCINE (2 - 3-d ose SCDM series) HPV VACCINE (2 - 3-dose SCDM series) [facility] Start: 02-29-2008 Urine microalbumin profile [facility] Start: 2007 Anxiety Screening Anxiety Screening [facility] Start: 2007 Depression Screening Depression Scre ening [facility] Start: 2007 HEPATITIS C SCREENING HEPATITIS C [facility] Start: 2007 Hepatitis C screening Hepatitis C [facility] Start: 2007 HIV SCREENING HIV SCREENING [facility] Start: 2007 HIV screening HIV Screening [facility] Start: 2001 Adult depression screening assessment DEPRESSION SCREENING [facility] Start: 1989 HEPATITIS B (1 of 3 - 3-dose series) HEPATITIS B (1 of 3 - 3-dose series) [facility] Start: 1989 Hepatitis B Vaccine (1 of 3 - 3-dose series) Hepatitis B Vaccine (1 of 3 - 3-dose series) [facility] BACTERIAL VAGINOSIS AMPLIFICATION BACTERIAL VAGINOSIS AMPLIFICATION Lab Routine Vagina itching Vaginal discharge Ordered: 01/02/2022 [facility] Work Phone: Comment on above: Ordered: 01/02/2022 ILIA / TRICHOMONA S AMPLIFICATION ILIA / TRICHOMONAS AMPLIFICATION Lab Routine Screen for STD (sexually transmitted disease) Vagina itching Vaginal discharge Ordered: 01/02/2022 [facility] Work Phone: Comment on above: Ordered: 01/02/2022 Chlamydia trachomatis+Neisseria gonorrhoeae DNA [Presence] in Unspecified specimen by LIAM with probe detection GC/CHLAMYDIA DNA DET Lab Routine Screen for STD (sexually transmitted disease) Vagina itching Vaginal discharge Ordered: 01/02/2022 [facility] Work Phone: Comment on above: Ordered: 01/02/2022 End: 06-01-2023 Diagnostic mammography computer-aided detcj bi [facility] DI[facility]NOST[facility] BILAT Radiology Routine Breast lump on left side at 1 o'clock position 1 Occurrences starting 05/02/2022 until 06/01/2023 [facility] Work Phone: Comment on above: 1 Occurrences starti ng 05/02/2022 until 06/01/2023 Microscopic observat ion [Identifier] in Vaginal fluid by Gram stain BACT/ILIA VAG GRAM STAIN Microbiology Routine Vaginal irritation Ordered: 01/20/2022 [facility] Work Phone: Comment on above: Ordered: 01/20/2022 Removal intrauterine device iud REMOVE INTRAUTERINE DEVICE Procedures Routine Encounter for IUD removal Ordered: 10/09/2023 [facility] Work Phone: Comment on above: Ordered: 10/09/2023 End: 06-01-2023 Us breast uni real time with image limited US BREAST LTD LT Radiology Routine Breast lump on left side at 1 o'clock position 1 Occurrences starting 05/02/2022 until 06/01/2023 [facility] Work Phone: Comment on above: 1 Occurrences starti ng 05/02/2022 until 06/01/2023 [facility] Immunizations Immunization Date Immunization Notes Care Provider Fa [facility] 06-20-2022 influenza virus vacc ine, unspecified formulation Anai Nolasco MD Work Phone: [facility] 01-16-2021 Human Papillomavirus 9-valent vaccine Olivia Petersen APRN.D[employer] Work Phone: [facility] 11-29-2020 COVID-19 vaccine, fu ll dose (MODERNA) Olivia Petersen APRN.D[employer]TER Work Phone: [facility] 11-01-2020 COVID-19 vaccine, fu ll dose (MODERNA) Olivia Petersen APRN.CNP Work Phone: [facility] Payers Date Payer Category Payer Private Health Insurance [id number] 2021 Private Health Insurance [facility] UMR CHOICE PLUS [id number] 2021-Present [phone] [address] [address] [place] [address] HMO [id number] 2021 Private Health Insurance [id number] Social History Date Type Detail Facility Start: 09-01-2019 End: 05-02-2022 Tobacco smoking status NHIS Never smoked tobacco [facility] Start: 09-01-2019 End: 05-02-2022 Tobacco use and exposure Smokeless tobacco non-user [facility] Start: 1990 Sex Assigned At Not on file [facility] Start: 12-22-2021 End: 05-02-2022 Exposure to SARS-CoV-2 (event) Not sure [facility] Work Phone: Start: 04-16-2023 End: 04-27-2024 Alcohol intake Current drinker of alcohol (finding) [facility] Start: 04-16-2023 End: 04-27-2024 History of Social function [facility] Start: 04-16-2023 End: 04-27-2024 Tobacco use panel [facility] National Score (1-100), lower number is lower risk 71 [facility] Clinical Notes 01-02-2022 to 06-03-2024 Telephone Encounter - Britt Fletcher LPN - 06/03/2024 10:05 AM EDTTelephone Encounter - Brtit Fletcher LPN - 06/03/2024 10:05 AM Ajay Rivera MD - 05/03/2024 2:53 PM EDT Note Date & Type Note Facility 06-03-2024 Telephone encounter Note Patient notified [facility] 06-03-2024 Miscellaneous Notes Patient notified Yes, its normal. Tampons cannot absorb the blood once it clots Patient started her menses yesterday. When she took out her tampon she noted a couple of pasty clumps. Today when she removed her tampon the blood was a darker brown similar to old blood. No abnormal pain or odor along with it. Patient questioning if this is normal. She is leaving for out of town today. Ok to leave a detailed message or send a Mychart message. Raisa Sam RN documented in this encounter [facility] 06-03-2024 Telephone encounter Note Yes, its normal. Tampons cannot absorb the blood once it clots [facility] Work Phone: 06-03-2024 Telephone encounter Note Patient started her menses yesterday. When she took out her tampon she noted a couple of pasty clumps. Today when she removed her tampon the blood was a darker brown similar to old blood. No abnormal pain or odor along with it. Patient questioning if this is normal. She is leaving for out of town today. Ok to leave a detailed message or send a Mychart message. Raisa Sam RN [facility] 05-11-2024 Telephone encounter Note HSG scheduled at [facility] 06/09/24 at 8am. Dominique Mitchell RN [facility] 05-11-2024 Miscellaneous Notes HSG scheduled at [facility] 06/09/24 at 8am. Dominique Mitchell RN HSG order signed. Will check if able to add to 06/09 surgery date with DM. Dominique Mitchell RN HSG order to provider to sign. Will need faxed and scheduled once signed. Yudy Hightower RN Please assist in scheduling HSG on CD 6-10, will start clomid after HSG. documented in this encounter [facility] 05-10-2024 Telephone encounter Note HSG order signed. Will check if able to add to 06/09 surgery date with DM. Dominique Mitchell RN [facility] 05-09-2024 Telephone encounter Note HSG order to provider to sign. Will need faxed and scheduled once signed. Yudy Hightower RN [facility] 09-23-2024 Telephone encounter Note Please assist in scheduling HSG on CD 6-10, will start clomid after HSG. [facility] 05-03-2024 Note HNO ID: [id number] Author: AJAY MARIEE MD Service: ? Author Type: Physician Type: Progress Notes Filed: 05/03/2024 15:00 Note Text: The patient presents for requested ultrasound. Full report available in the Imaging tab in [employer]. Ajay Mariee MD [facility] 05-03-2024 History of Present illness Narrative The patient presents for requested ultrasound. Full report available in the Imaging tab in [employer]. Ajay Mariee MD documented in this encounter [facility] 04-27-2024 Note HNO ID: [id number] Author: ANAI LAUREN MD Service: ? Author Type: Physician Type: Progress Notes Filed: 04/27/2024 15:09 Note Text: Yan Hopson is a 34 year old female who presents for discussion regarding fertility. Pt reports IUD was removed in october 2023 and her and partner have been actively trying since that time. Pt reports - since Mirena is out cycles are regular, does have some cramping with cycles. Light to moderate flow- lasting 3-4 days. 26-28 days, doing home ovulation kits with positive results on CD 18. Pt reports no h/o STDs other than HPV, has had BV in past. Pt and partner have never had children in past relationships. Pt is taking PNV. Neither of them smoke or use illicit drugs. Pt is active in the gym - crossfit. Only medical problem for partner is HTN which he is on lisinopril and metoprolol. Pt offers no other concerns today. 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 History LMP: 04/03/2024 (Approximate), Having periods Age at Menarche: Age at First : Age at Menopause: Consumer Loan Manager History Comments: Sexual Activity: Yes; Male Contraception: None PAST MEDICAL HISTORY No date: NEGATIVE MEDICAL HISTORY PAST SURGICAL HISTORY No date: TONSILLECTOMY HX Comment: age 15 FAMILY HISTORY Problem Relation Age of Onset Diabetes Mother Asthma Father COPD Father Breast Cancer Paternal Aunt Social History Tobacco Use Smoking status: Never Smokeless tobacco: Never Vaping Use Vaping status: Never Used Substance Use Topics Alcohol use: Yes Alcohol/week: 10.0 standard drinks of alcohol Types: 10 Cans of beer per week Drug use: Never Current Outpatient Medications Medication Sig levonorgestrel (MIRENA) 20 mcg/24 hours (5 yrs) 52 mg IUD 1 Each by INTRAUTERINE route as directed. No current facility-administered medications for this visit. Allergies As of Date: 04/27/2024 Allergen Noted Reaction PENICILLINS 09/01/2019 Rash Fully Assessed 04/27/2024 REVIEW OF SYSTEMS Abdomen: no pain Bladder: no dysuria.. Expanded ROS: GENERAL: No weight loss, malaise or fevers Allergies and current medication updated:Yes EXAM: BP 122/72 Wt 271 lb (122.9kg) LMP 04/03/2024 GENERAL: pleasant, female in no apparent distress HEENT: Normocephalic, atraumatic, mucus membranes moist, and no lesions NECK: Supple and full range of motion DERMATOLOGY: Normal, without lesions, non-icteric, and non-hirsute NEURO: alert and oriented x3,exam grossly non-focal EXTREMITIES: normal ASSESSMENT AND PLAN: Encounter Diagnosis ICD-10-CM 1. Dysmenorrhea N94.6 PELVIC US WHI 2. Encounter for fertility planning Z31.89 3. Female infertility N97.9 Discussed proceeding with Semen analysis and HSG and reasoning behind this. Pt will discuss with fiance and notify office how to proceed. Dicussed possible use of letrozole or clomid as well. Discussed referral to [facility] if desired. Recent labs were done and normal. I spent a total of 20 minutes on the date of the service which included preparing to see the patient, [id number] patient care, completing clinical documentation, obtaining and/or reviewing separately obtained history, performing a medically appropriate examination, counseling and educating the patient/family/caregiver, and ordering medications, tests, or procedures. Anai Dillon MD [facility] 04-27-2024 History of Present illness Narrative Yan Hopson is a 34 year old female who presents for discussion regarding fertility. Pt reports IUD was removed in october 2023 and her and partner have been actively trying since that time. Pt reports - since Mirena is out cycles are regular, does have some cramping with cycles. Light to moderate flow- lasting 3-4 days. 26-28 days, doing home ovulation kits with positive results on CD 18. Pt reports no h/o STDs other than HPV, has had BV in past. Pt and partner have never had children in past relationships. Pt is taking PNV. Neither of them smoke or use illicit drugs. Pt is active in the gym - [employer]. Only medical problem for partner is HTN which he is on lisinopril and metoprolol. Pt offers no other concerns today. 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 History LMP: 04/03/2024 (Approximate), Having periods Age at Menarche: Age at First : Age at Menopause: Consumer Loan Manager History Comments: Sexual Activity: Yes; Male Contraception: None PAST MEDICAL HISTORY No date: NEGATIVE MEDICAL HISTORY PAST SURGICAL HISTORY No date: TONSILLECTOMY HX Comment: age 15 FAMILY HISTORY Problem Relation Age of Onset Diabetes Mother Asthma Father COPD Father Breast Cancer Paternal Aunt Social History Tobacco Use Smoking status: Never Smokeless tobacco: Never Vaping Use Vaping status: Never Used Substance Use Topics Alcohol use: Yes Alcohol/week: 10.0 standard drinks of alcohol Types: 10 Cans of beer per week Drug use: Never Current Outpatient Medications Medication Sig levonorgestrel (MIRENA) 20 mcg/24 hours (5 yrs) 52 mg IUD 1 Each by INTRAUTERINE route as directed. No current facility-administered medications for this visit. Allergies As of Date: 04/27/2024 Allergen Noted Reaction PENICILLINS 09/01/2019 Rash Fully Assessed 04/27/2024 REVIEW OF SYSTEMS Abdomen: no pain Bladder: no dysuria.. Expanded ROS: GENERAL: No weight loss, malaise or fevers Allergies and current medication updated:Yes EXAM: BP 122/72 Wt 271 lb (122.9kg) LMP 04/03/2024 GENERAL: pleasant, female in no apparent distress HEENT: Normocephalic, atraumatic, mucus membranes moist, and no lesions NECK: Supple and full range of motion DERMATOLOGY: Normal, without lesions, non-icteric, and non-hirsute NEURO: alert and oriented x3,exam grossly non-focal EXTREMITIES: normal ASSESSMENT AND PLAN: Encounter Diagnosis ICD-10-CM 1. Dysmenorrhea N94.6 PELVIC US WHI 2. Encounter for fertility planning Z31.89 3. Female infertility N97.9 Discussed proceeding with Semen analysis and HSG and reasoning behind this. Pt will discuss with fiance and notify office how to proceed. Dicussed possible use of letrozole or clomid as well. Discussed referral to [facility] if desired. Recent labs were done and normal. I spent a total of 20 minutes on the date of the service which included preparing to see the patient, [id number] patient care, completing clinical documentation, obtaining and/or reviewing separately obtained history, performing a medically appropriate examination, counseling and educating the patient/family/caregiver, and ordering medications, tests, or procedures. Anai Dillon MD documented in this encounter [facility] 11-11-2023 Note HNO ID: [id number] Author: DONNEI GHOTRA APRN.DOUBLE [employer]TER Service: ? Author Type: Nurse Practitioner Type: Progress Notes Filed: 11/11/2023 15:45 Note Text: Hostage Negotiator offered: Patient declines. Yan presents for removal of IUD due to desire for . UNIVERSAL PROTOCOL / SAFETY CHECKLIST Procedure to be Performed: IUD removal- Mirena Sign In: A Moment of CARE was completed. Personnel directly involved with the procedure wore the appropriate PPE (Personal Protective Equipment). Patient/Surrogate Stated/Verified: PATIENT VERIFIED(optional for EMERGENT procedures): Patient name, Date of , Relevant allergies, and The intended procedure Time Out Communication: Intended patient and procedure match the source documents. Consent documented and matches the intended procedure. Sign Out: SIGN OUT (optional for EMERGENT procedures): No specimen collected. All instruments, equipment, possible retained foreign bodies accounted for. Post-procedure follow-up management communicated and Plan of Care Visit completed when applicable. PROCEDURE: Speculum placed in vagina, IUD string visualized and grasped with ring forceps. ASSESSMENT/PLAN: IUD removed without difficulty, intact, and patient tolerated procedure well. Contraception plans: none Reviewed pre-conception guidelines including folic acid supplementation, optimal timing of intercourse, avoidance of smoking, alcohol, exposure to environmental chemicals and need for evaluation if not within 12 months. Donnie Ghotra APRN.[facility] 09-07-2023 Note HNO ID: [id number] Author: ANAI LAUREN MD Service: ? Author Type: Physician Type: Progress Notes Filed: 09/07/2023 11:34 Note Text: Some documentation from previous visit of 06/29/2023 was copied and pasted, documentation has been reviewed and edited as necessary for today's visit. Patient Summary: Yan is a 33 year old female who presents for follow-up evaluation of her obesity/weight management to treat and prevent relatedco-morbidities. In our previous visits we have discussed lifestyle intervention including a nutrition recommendations and physical activity optimization. Her last office visit was 2 months ago. Assessment/plan from last visit: -continue topiramate -will start diethylpropione- dose up to 3 times daily reviewed with patient. ETOH has been limited, reviewed do not use in combination with any excessive ETOH use. -continue tracking -protein and lower carb, whole foods -planning for holidays reviewed -SE and risks of diethylpropion reviewed -offered PT for back if desired- will call if still having pain - low impact walking and stretching at this time. Interval History - taking topiramate in morning - no SE - Diethylpropion- helps with serving sizes, takes typically 2 x day. - ETOH- has decreased significantly. 2-3 once or twice per week. No beer. -feels like medications- help eat slower, last faster, not hungry for snacks, food noise gone, not snacking. -B-Protein shake -L- Factor Meals- or salad, pears, veggies, meat -D- Meat and Veggie -Energy improving -Goal- tracking food, staying consistent when working out. - Proud- making health a priority Exercise: Started [employer]- was sick over holidays- getting back on it. 30-40 min, 7 days per week, 2 days of active recovery. Walking dogs every day- 8000 steps per day. Walking pad under desk. Stress: stable Sleep: 7-8 hours - Last Wt 06/01/23 : 284 lb (128.8 kg) 5% weight loss = 270 lbs, 10% weight loss = 256 lbs Last 2 Encounter Wt Readings: Date: Wt: 06/29/2023 279 lb (126.6 kg) 06/01/2023 284 lb (128.8 kg) Weight loss since last vist: 9lbs 09/07/2023 - 270lbs (lowest 264 at home) Anti-Obesity Medications IUD in place ETOH- would not recommend wellbutrin/naltrexone Estimated Creatinine Clearance: 151 mL/min (based on SCr of 0.76 mg/dL). PAST MEDICAL HISTORY Diagnosis Date NEGATIVE MEDICAL HISTORY Current Outpatient Medications Medication Sig Dispense Refill topiramate (TOPAMAX) 50 mg tablet Take 1 tablet by mouth once daily. 30 tablet 2 escitalopram oxalate (LEXAPRO) 10 mg tablet escitalopram oxalate (LEXAPRO) 5 mg tablet Take 1 tablet by mouth every afternoon. levonorgestrel (MIRENA) 20 mcg/24 hours (5 yrs) 52 mg IUD 1 Each by INTRAUTERINE route as directed. 1 Each 0 No current facility-administered medications for this visit. ROS Denies CP, Anxiety, Palpitations, Brain fog, paraesthesia BP 122/80 Pulse 61 Wt 270 lb (122.5 kg) LMP 04/21/2022 (Approximate) SpO2 100% BMI 38.74 kg/m? Physical Exam Waist circumference- 44.5-->44 --> 41 Assessment/Plan: Yan Hopson is a 33 year old yo female with class 3 obesity who presented today for follow up for supervised weight lossto treat and prevent related co-morbidities. - spot checking protein and carbohydrates - Cutting back on ETOH- doing a good job- only 2-3 drinks maybe 1-2 times per week - Routine Exercise- SMART goal with crossing off days on calendar reviewed - Increase topiramate to BID- food noise - Continue Diethylpropion BID to TID - considering this summer- reviewed no Topiramate prior to starting trying. (R53.81, R53.83) Malaise and fatigue (primary encounter diagnosis) (M54.50) Acute low back pain, unspecified back pain laterality, unspecified whether sciatica present (E66.01, Z68.41) Class 3 severe obesity with body mass index (BMI) of 40.0 to 44.9 in adult, unspecified obesity type, unspecified whether serious comorbidity present (HCC) I spent a total of 35 minutes on the date of the service which included preparing to see the patient, [id number] patient care, completing clinical documentation, obtaining and/or reviewing separately obtained history, performing a medically appropriate examination, counseling and educating the patient/family/caregiver, and ordering medications, tests, or procedures. Follow up in 3 months Anai Dillon MD [facility] 08-04-2023 Note HNO ID: [id number] Author: AIDA HOANG PT Service: ? Author Type: Physical Therapist Type: Progress Notes Filed: 09/04/2023 10:16 Note Text: 09/04/2023 [facility] PHYSICAL THERAPY DISCONTINUANCE OF CARE Plan of Care Period: Start of Care Date: 07/08/23 Last Visit Date: 08/04/2023 Therapy Program: The following is a summary of the interventions provided for this episode of care; Therapeutic exercise Assessment: Based on most recent visit, patient was progressing as expected toward functional goals based on documented subjective information on progress. Unable to formally assess goal achievement, as patient has not returned to therapy or scheduled additional follow-up appointments. Reason for Discontinuation of Care: Patient has not returned to therapy or scheduled additional follow-up appointments. Aida Hoang PT Episode Visit Count: 3 Therapist That Will Accept/Oversee The Plan Of Care: Aida Hoang Start of Care Date: 07/08/23 Onset Date: 06/17/23 Plan of Care Certification Date: 07/08/23 Next Certification Due Date: 08/12/23 [facility]TS [facility]ER[facility] PHYSICAL THERAPY TREATMENT NOTE ASSESSMENT: Yan Hopson tolerated the session with increased symptoms. She demonstrated improvements in R hip pain with R side lying side glide to correct R lateral trunk shift. The patient will continue to benefit from ongoing skilled physical therapy to progress toward set goals. PLAN FOR NEXT VISIT: Continue core stabilization strengthening, consider seated on physioball SUBJECTIVE: Pt. ran intervals for 12 minutes and this caused increased R hip pain. Her back was feeling ok Patient Goals: return to running and walking without pain 3-4 times a week without pain Pain: Pain Pain Level: 3 Pain Location: Hip - Right Description: Tightness Pain Level 2: 0 Pain Location 2: Low Back/Lumbar Spine- Midline Description 2: Aching Post Treatment Pain Post Treatment Pain Level: Better Post Treatment Pain Location: Hip - Right Post Treatment Pain Score 2: 0/10 Post Treatment Pain Location 2: Low Back/Lumbar Spine - Right OBJECTIVE MEASURES WITH LEVEL OF FUNCTION: TREATMENT: Therapeutic Exercise: 1: *R side lying side glide x 5 minutes 2: *Sidelying Hip Circles - 1 x daily - 7 x weekly - 4 sets - 30 hold - 3: hoist stir the pot 30 sec CW and 30 sec CCW 2x each side (cues to correct R trunk shift) 4: *Access Code: [email or web address] URL: [email or web address] Date: 08/04/2023 Prepared by: Aida Hoang Exercises - Prone Press Up - 2-3 x daily - 7 x weekly - 4-5 sets - 5 reps - 1-2 hold - Bird Dog - 1 x daily - 7 x weekly - 2-3 sets - 10-15 reps - 1 hold - Supine Bridge - 1 x daily - 7 x weekly - 3 sets - 10-15 reps - 5 hold - Skilled Intervention: Patient was educated in proper exercise technique and purpose for exercises. Skilled judgment was used in selection of appropriate interventions. Provided written instruction for home exercise program to facilitate proper performance and compliance. Correct performance of therapeutic exercises was facilitated with verbal and visual cuing. Educated patient on rationale for performing exercises in regards to decreasing fatigue , including balance, increase ease of ADL, and ROM and function . Patient education as noted. Neuromuscular Re-Education: 1: quadruped hydrants 3x30 sec each side Skilled Intervention: Skilled judgment used to assess appropriate program for balance and coordination activity. Education in proprioceptive/kinesthetic awareness during dynamic activities. Reviewed and educated patient on additions/changes for home program as noted above with an (*). Patient education as noted. Billing Therapeutic Exercise Treatment Minutes: 35 Neuromuscular Re-Education Treatment Minutes: 5 Skilled Treatment Time Minutes (timed and untimed codes): 40 Total Session Time (minutes): 40 Session Start Time : 0900 Session Stop Time : 0940 Aida Hoang, PT [facility] 07-28-2023 History of Present illness Narrative Program_ID:[id number] Access Code: [email or web address] URL: [email or web address] Date: 07-28-2023 Prepared By: Aida Hoang Program Notes Exercises - Prone Press Up - 2-3 x daily - 7 x weekly - 4-5 sets - 5 reps - Prone Hip Extension - 1 x daily - 7 x weekly - 2-3 sets - 10-15 reps - Bird Dog - 1 x daily - 7 x weekly - 2-3 sets - 10-15 reps - Supine Bridge - 1 x daily - 7 x weekly - 3 sets - 10-15 reps Episode Visit Count: 2 Therapist That Will Accept/Oversee The Plan Of Care: Aida Hoang Start of Care Date: 07/08/23 Onset Date: 06/17/23 Plan of Care Certification Date: 07/08/23 Next Certification Due Date: 08/12/23 REHABILITATION AND SPORTS THERAPY PHYSICAL THERAPY TREATMENT NOTE ASSESSMENT: Yan Hopson tolerated the session with decreased symptoms. She demonstrated improvements in lumbar lower lumbar extension mobility following manual PA mobilizations and UPAs to the L TVP of L4-L5, L5-S1. The patient will continue to benefit from ongoing skilled physical therapy to progress toward set goals. PLAN FOR NEXT VISIT: R hip stabilization strengthening in SL and quadruped SUBJECTIVE: Pt. is able to tolerate walking her dog and standing for prolonged periods such as when cooking. Pt. is able to walk and stand for 30 min without increased symptoms. Pt. does have some tightness in the hip. Patient Goals: return to running and walking without pain 3-4 times a week without pain Functional Limitations: bending, driving, sleeping, rising from a chair (donning socks and shoes by crossing the LEs) Pain: Pain Pain Level: 2 Pain Location: Hip - Right Description: Tightness Pain Level 2: 2 Pain Location 2: Low Back/Lumbar Spine- Midline Description 2: Aching Frequency 2: Sitting Post Treatment Pain Post Treatment Pain Level: 0 Post Treatment Pain Location: Hip - Right Post Treatment Pain Score 2: 0/10 Post Treatment Pain Location 2: Low Back/Lumbar Spine - Right OBJECTIVE MEASURES WITH LEVEL OF FUNCTION: TREATMENT: Therapeutic Exercise: 1: *Prone Press Up - 2-3 x daily - 7 x weekly - 4-5 sets - 5 reps - 3 sec hold with exhale (between sets of manual PA mobilizations) 2: *Access Code: [email or web address] URL: [email or web address] Date: 07/28/2023 Prepared by: Aida Mcgrath Exercises - Prone Press Up - 2-3 x daily - 7 x weekly - 4-5 sets - 5 reps - 1-2 hold - Prone Hip Extension - 1 x daily - 7 x weekly - 2-3 sets - 10-15 reps - 1 hold - Supine Bridge - 1 x daily - 7 x weekly - 3 sets - 10-15 reps - 1 hold Skilled Intervention: Patient was educated in proper exercise technique and purpose for exercises. Skilled judgment was used in selection of appropriate interventions. Provided written instruction for home exercise program to facilitate proper performance and compliance. Correct performance of therapeutic exercises was facilitated with verbal, visual, and tactile cuing. Educated patient on rationale for performing exercises in regards to decreasing fatigue , improving fitness, including balance, increase ease of ADL, and ROM and function . Manual Therapy: Joint: L3-L4, L4-L5, L5-S1 (concordant symptoms reproduced, referred to the anterior R hip, this improved with repeated mobilizatoins) Grade: III progressing to IV Repetitions: 2x10 oscillations at each central spinous process, PA, 2x10 oscillations at L4-L5, L5-S1 L TVP Skilled Intervention: Manual skills to improve joint mobility, ROM, and decrease pain. Utilized anatomy knowledge of the therapist, and assessment of patient's response to intervention. Neuromuscular Re-Education: 1: quadruped TA activation 2x10 2: quadruped TA alt UE raises 2x10 3: quadruped TA LE raises 2x10 each side (cues to avoid pelvic rotation R with RLE raises) 4: *Bird Dog - 1 x daily - 7 x weekly - 2-3 sets - 10-15 reps - 1 hold - Skilled Intervention: Skilled judgment used to assess appropriate program for balance and coordination activity. Education in proprioceptive/kinesthetic awareness during dynamic activities. Reviewed and educated patient on additions/changes for home program as noted above with an (*). Patient education as noted. Billing Therapeutic Exercise Treatment Minutes: 15 Manual TherapyTreatment Minutes: 10 Neuromuscular Re-Education Treatment Minutes: 15 Skilled Treatment Time Minutes (timed and untimed codes): 40 Total Session Time (minutes): 40 Session Start Time : 1030 Session Stop Time : 1110 Aida Hoang PT documented in this encounter [facility] 07-28-2023 Note HNO ID: [id number] Author: Aida Hoang PT Service: ? Author Type: Physical Therapist Type: Progress Notes Filed: 07/28/2023 11:08 AM Note Text: Episode Visit Count: 2 Therapist That Will Accept/Oversee The Plan Of Care: Aida Hoang Start of Care Date: 07/08/23 Onset Date: 06/17/23 Plan of Care Certification Date: 07/08/23 Next Certification Due Date: 08/12/23 REHABILITATION AND SPORTS THERAPY PHYSICAL THERAPY TREATMENT NOTE ASSESSMENT: Yan Hopson tolerated the session with decreased symptoms. She demonstrated improvements in lumbar lower lumbar extension mobility following manual PA mobilizations and UPAs to the L TVP of L4-L5, L5-S1. The patient will continue to benefit from ongoing skilled physical therapy to progress toward set goals. PLAN FOR NEXT VISIT: R hip stabilization strengthening in SL and quadruped SUBJECTIVE: Pt. is able to tolerate walking her dog and standing for prolonged periods such as when cooking. Pt. is able to walk and stand for 30 min without increased symptoms. Pt. does have some tightness in the hip. Patient Goals: return to running and walking without pain 3-4 times a week without pain Functional Limitations: bending, driving, sleeping, rising from a chair (donning socks and shoes by crossing the LEs) Pain: Pain Pain Level: 2 Pain Location: Hip - Right Description: Tightness Pain Level 2: 2 Pain Location 2: Low Back/Lumbar Spine- Midline Description 2: Aching Frequency 2: Sitting Post Treatment Pain Post Treatment Pain Level: 0 Post Treatment Pain Location: Hip - Right Post Treatment Pain Score 2: 0/10 Post Treatment Pain Location 2: Low Back/Lumbar Spine - Right OBJECTIVE MEASURES WITH LEVEL OF FUNCTION: TREATMENT: Therapeutic Exercise: 1: *Prone Press Up - 2-3 x daily - 7 x weekly - 4-5 sets - 5 reps - 3 sec hold with exhale (between sets of manual PA mobilizations) 2: *Access Code: [email or web address] URL: [email or web address] Date: 07/28/2023 Prepared by: Aida Hoang Exercises - Prone Press Up - 2-3 x daily - 7 x weekly - 4-5 sets - 5 reps - 1-2 hold - Prone Hip Extension - 1 x daily - 7 x weekly - 2-3 sets - 10-15 reps - 1 hold - Supine Bridge - 1 x daily - 7 x weekly - 3 sets - 10-15 reps - 1 hold Skilled Intervention: Patient was educated in proper exercise technique and purpose for exercises. Skilled judgment was used in selection of appropriate interventions. Provided written instruction for home exercise program to facilitate proper performance and compliance. Correct performance of therapeutic exercises was facilitated with verbal, visual, and tactile cuing. Educated patient on rationale for performing exercises in regards to decreasing fatigue , improving fitness, including balance, increase ease of ADL, and ROM and function . Manual Therapy: Joint: L3-L4, L4-L5, L5-S1 (concordant symptoms reproduced, referred to the anterior R hip, this improved with repeated mobilizatoins) Grade: III progressing to IV Repetitions: 2x10 oscillations at each central spinous process, PA, 2x10 oscillations at L4-L5, L5-S1 L TVP Skilled Intervention: Manual skills to improve joint mobility, ROM, and decrease pain. Utilized anatomy knowledge of the therapist, and assessment of patient's response to intervention. Neuromuscular Re-Education: 1: quadruped TA activation 2x10 2: quadruped TA alt UE raises 2x10 3: quadruped TA LE raises 2x10 each side (cues to avoid pelvic rotation R with RLE raises) 4: *Bird Dog - 1 x daily - 7 x weekly - 2-3 sets - 10-15 reps - 1 hold - Skilled Intervention: Skilled judgment used to assess appropriate program for balance and coordination activity. Education in proprioceptive/kinesthetic awareness during dynamic activities. Reviewed and educated patient on additions/changes for home program as noted above with an (*). Patient education as noted. Billing Therapeutic Exercise Treatment Minutes: 15 Manual TherapyTreatment Minutes: 10 Neuromuscular Re-Education Treatment Minutes: 15 Skilled Treatment Time Minutes (timed and untimed codes): 40 Total Session Time (minutes): 40 Session Start Time : 1030 Session Stop Time : 1110 Aida Hoang PT [facility] 07-08-2023 History of Present illness Narrative Program_ID:[id number] Access Code: [email or web address] URL: [email or web address] Date: 07-08-2023 Prepared By: Aida Hoang Program Notes Exercises - Prone Press Up - 2-3 x daily - 7 x weekly - 4-5 - 5 Episode Visit Count: 1 Therapist That Will Accept/Oversee The Plan Of Care: Aida Hoang Start of Care Date: 07/08/23 Onset Date: 06/17/23 Plan of Care Certification Date: 07/08/23 Next Certification Due Date: 08/12/23 Patient Identified by Name and Date of : Yes REHABILITATION AND SPORTS THERAPY PHYSICAL THERAPY EVALUATION PLAN OF CARE: Assessment: Yan Hopson presents with diagnosis of acute low back pain that interferes with bending, driving, sleeping, rising from a chair (donning socks and shoes by crossing the LEs) . She presents with impairments in ADL's, independence in exercise, joint mobility, overall function, patient reported outcome measures, posture, range of motion, strength, symptom management, and tissue tenderness. PROMIS (Patient-Reported Outcomes Measurement Information System) scores were reviewed and physical function domain and self efficacy domain identified as a rehabilitation concern. Prognosis for therapy is Excellent due to: good support system/ coping skills, within-session changes, positive past response to therapy, acuteness of condition, good overall health status, current objective clinical presentation . She will benefit from skilled therapy services to meet the goals established for this plan of care as noted below. Classification Low Back Pain Subgroup Classification: Specific exercise subgroup: recommended visits 8. Specific Exercies Subgroup Classification based on: directional preference, centralization Goals for Episode of Care: created on 07/08/23 through 08/19/23 Independent in home exercises. Patient will decrease pain rating by 2 points to meet minimal clinical important difference for numeric pain rating scale. Restore pain-free lumbar ROM to minimal to no limitation grossly to allow for transitional movements. Stand / Walk 30-45 minutes without pain/symptoms. Sleep through night without pain/symptoms. Sit 2-3 hours without pain/symptoms to allow for seated activities and travel. Maintain proper sitting posture throughout session Patient Goals: return to running and walking without pain 3-4 times a week without pain Planned Interventions, Frequency, and Duration: Current Frequency: 1x/week Duration: 6 weeks Total Number of Visits Planned: 6 Planned Treatment Interventions: Therapeutic exercise (65592), Neuromuscular re-education (33176), Manual therapy (81394), Therapeutic activities (14529), Self-halfway management (84628), Gait Training (30466) PLAN FOR NEXT VISIT: assess symptom response to lumbar extension prone press ups, continue manual therapy Patient demonstrates good understanding of plan of care and treatment. The above goals and plan of care were discussed and agreed upon by patient/family. SUBJECTIVE: for B hip and LBP that onset June 17, 2023. Pt. believes it started last year when she drove a lot for work. LBP has limited her exercise. Pt. bent forward and felt B back spasms upon standing. LBP has improved. She now has mostly R anterior hip pain radiating down the lateral RLE proximal to the R knee. 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 Cancer Clinical Reasoning: No identified risk factors. Infection Clinical Reasoning: No identified risk factors. Cauda Equina Syndrome Clinical Reasoning: No identified risk factors. Red Flags - Cervical Cancer Clinical Reasoning: No identified risk factors. Infection Clinical Reasoning: No identified risk factors. Spine History Symptoms Location at Onset: Back Symptoms Since Onset: Improving Pain is Worse Always: Prolonged positions, Sitting, Standing (tolerates 30 min of walking) Pain is Better Always: On the Move Sleeping Position: Prone - head either right or left Pain: Pain Pain Level: 5 Pain Location: Hip - Right Description: (pinching) Frequency: Sitting Additional Pain Information : Location 2 Pain Level 2: 2 Pain Location 2: Low Back/Lumbar Spine- Midline Description 2: Aching Frequency 2: Sitting Post Treatment Pain Post Treatment Pain Level: Better Post Treatment Pain Location: Hip - Right Post Treatment Pain Score 2: 0/10 Post Treatment Pain Location 2: Low Back/Lumbar Spine - Right PROMIS Scales Higher is Better 07/08/2023 Phys Func - Score 36 (moderate dysfunction) Phys Func - Percentile 8 % Self-Eff Symptom - Score 41 (Average) Self-Eff Symptom - Percentile 18 % T-scores: mean of general population = 50. 5 points is clinically meaningfully difference Percentiles provide an indication of how the patient's score ranks in relation to the general population. Higher percentile rankings indicate better function/quality of life. 50th percentile is the average of the general population and indicates half of respondents had a worse score. OBJECTIVE MEASURES WITH LEVEL OF FUNCTION: Posture / Alignment Sitting Posture: Right lateral shift, Sits on right ischial tuberosity Sensation - Lumbar Sensation: Grossly Intact Lumbar Spine AROM Lumbar Flexion: Normal Lumbar Extension: Major limitation, Produces Lumbar R Side [place]: Normal Lumbar L Side [place]: Produces, Minimal limitation Lumbar R Side-Bend: Normal Lumbar L Side-Bend: Produces, Minimal limitation Lumbar R Rotation: Normal Lumbar L Rotation: Normal Repeated Test Movements - Lumbar REIL - Symptoms During: centralizing REIL - Symptoms After: increase ROM, better, centralized Spine Joint Mobility Spine Joint Mobility : Lumbar/Thoracic Joint Mobility - L1: WNL Joint Mobility - L2: Hypomobile Joint Mobility - L3: Hypomobile Joint Mobility - L4: WNL Joint Mobility - L5: WNL Joint Mobility - S1: WNL Education: Education Learning Preferences: Demonstration, Explanation, Performance, Printed Materials Barriers: Acuity of Illness Learning/educational needs: Posture, Home exercise program, Plan of Care Education Provided: Yes, see treatment interventions for education provided Education Provided To: Patient Education Mode/Type: Demonstration, Explanation/Discussion, Literature/Printed Materials, Performance Response to Education/Teach Back: States/Identifies, Return Demonstration, Requires Review/Additional Education TREATMENT: PT Treatment Interventions: Self-Alf Management, Therapeutic Exercise, Manual Therapy Evaluation Therapeutic Exercise: 1: *Prone Press Up - 2-3 x daily - 7 x weekly - 4-5 sets - 5 reps - 1-2 hold Skilled Intervention: Patient was educated in proper exercise technique and purpose for exercises. Skilled judgment was used in selection of appropriate interventions. Provided written instruction for home exercise program to facilitate proper performance and compliance. Educated patient on rationale for performing exercises in regards to increase ease of ADL and ROM and function . Patient education as noted. Manual Therapy: Joint Mobilizations: Repetitions, Grade, Joint, Patient Position, Body Region Treated Body Region Treated: lumbar Patient Position: prone Joint: L1-L2 through L3-L4 Grade: II progressing to III Repetitions: 2x oscillations at each segment, 2 sets of 15 oscillations at L2-L3 between press ups sets Skilled Intervention: Manual skills to improve joint mobility, ROM, and decrease pain. Utilized anatomy knowledge of the therapist, and assessment of patient's response to intervention. Self-Alf Management: 1: *discussed directional preference lumbar extension exercises and how it is used to treat lumbar derangement Skilled Intervention: Skilled judgment in the selection of proper modification for activity of daily living/home management based on clinical presentation, deficits, and needs. Educated the patient regarding recommendations and provided written instruction to facilitate compliance. Provided written instruction for activities of daily living techniques to facilitate proper performance and compliance. Reviewed patient specific diagnosis in relation to activities of daily living/home management. Activity progression based on professional judgement. Minimum verbal cues for maintaining neutral spine alignment. Provided written instruction for home program to facilitate proper performance and compliance. Correct performance of home program was facilitated with verbal, visual, and tactile cueing. Billing * Evaluation Low Complexity: 1 Unit Therapeutic Exercise Treatment Minutes: 10 Manual TherapyTreatment Minutes: 10 Self-Care/Home Management Treatment Minutes: 5 Skilled Treatment Time Minutes (timed and untimed codes): 45 Total Session Time (minutes): 45 Session Start Time : 0815 Session Stop Time : 0900 Aida Hoang PT documented in this encounter [facility] 07-08-2023 Note HNO ID: [id number] Author: Aida Hoang PT Service: ? Author Type: Physical Therapist Type: Progress Notes Filed: 07/08/2023 8:56 AM Note Text: Episode Visit Count: 1 Therapist That Will Accept/Oversee The Plan Of Care: Aida Hoang Start of Care Date: 07/08/23 Onset Date: 06/17/23 Plan of Care Certification Date: 07/08/23 Next Certification Due Date: 08/12/23 Patient Identified by Name and Date of : Yes REHABILITATION AND SPORTS THERAPY PHYSICAL THERAPY EVALUATION PLAN OF CARE: Assessment: Yan Hopson presents with diagnosis of acute low back pain that interferes with bending, driving, sleeping, rising from a chair (donning socks and shoes by crossing the LEs) . She presents with impairments in ADL's, independence in exercise, joint mobility, overall function, patient reported outcome measures, posture, range of motion, strength, symptom management, and tissue tenderness. PROMIS? (Patient-Reported Outcomes Measurement Information System) scores were reviewed and physical function domain and self efficacy domain identified as a rehabilitation concern. Prognosis for therapy is Excellent due to: good support system/ coping skills, within-session changes, positive past response to therapy, acuteness of condition, good overall health status, current objective clinical presentation . She will benefit from skilled therapy services to meet the goals established for this plan of care as noted below. Classification Low Back Pain Subgroup Classification: Specific exercise subgroup: recommended visits 8. Specific Exercies Subgroup Classification based on: directional preference, centralization Goals for Episode of Care: created on 07/08/23 through 08/19/23 Independent in home exercises. Patient will decrease pain rating by 2 points to meet minimal clinical important difference for numeric pain rating scale. Restore pain-free lumbar ROM to minimal to no limitation grossly to allow for transitional movements. Stand / Walk 30-45 minutes without pain/symptoms. Sleep through night without pain/symptoms. Sit 2-3 hours without pain/symptoms to allow for seated activities and travel. Maintain proper sitting posture throughout session Patient Goals: return to running and walking without pain 3-4 times a week without pain Planned Interventions, Frequency, and Duration: Current Frequency: 1x/week Duration: 6 weeks Total Number of Visits Planned: 6 Planned Treatment Interventions: Therapeutic exercise (12829), Neuromuscular re-education (96452), Manual therapy (48867), Therapeutic activities (14118), Self-halfway management (01604), Gait Training (35373) PLAN FOR NEXT VISIT: assess symptom response to lumbar extension prone press ups, continue manual therapy Patient demonstrates good understanding of plan of care and treatment. The above goals and plan of care were discussed and agreed upon by patient/family. SUBJECTIVE: for B hip and LBP that onset June 17, 2023. Pt. believes it started last year when she drove a lot for work. LBP has limited her exercise. Pt. bent forward and felt B back spasms upon standing. LBP has improved. She now has mostly R anterior hip pain radiating down the lateral RLE proximal to the R knee. 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 Cancer Clinical Reasoning: No identified risk factors. Infection Clinical Reasoning: No identified risk factors. Cauda Equina Syndrome Clinical Reasoning: No identified risk factors. Red Flags - Cervical Cancer Clinical Reasoning: No identified risk factors. Infection Clinical Reasoning: No identified risk factors. Spine History Symptoms Location at Onset: Back Symptoms Since Onset: Improving Pain is Worse Always: Prolonged positions, Sitting, Standing (tolerates 30 min of walking) Pain is Better Always: On the Move Sleeping Position: Prone - head either right or left Pain: Pain Pain Level: 5 Pain Location: Hip - Right Description: (pinching) Frequency: Sitting Additional Pain Information : Location 2 Pain Level 2: 2 Pain Location 2: Low Back/Lumbar Spine- Midline Description 2: Aching Frequency 2: Sitting Post Treatment Pain Post Treatm (more content not included)... [facility] 07-01-2023 Miscellaneous Notes Message regarding diethylpropion HCl 25 mg tab documented in this encounter [facility] 06-29-2023 Note HNO ID: [id number] Author: Anai Lauren MD Service: ? Author Type: Physician Type: Progress Notes Filed: 06/29/2023 5:36 PM Note Text: Some documentation from previous visit of 06/01/23 was copied and pasted, documentation has been reviewed and edited as necessary for today's visit. Patient Summary: Yan is a 33 year old female who presents for follow-up evaluation of her obesity/weight management to treat and prevent relatedco-morbidities. In our previous visits we have discussed lifestyle intervention including a nutrition recommendations and physical activity optimization. Her last office visit was 1 month ago. Assessment/plan from last visit: -high protein/low carb -whole foods -cut down ETOH -tracking food -exercise/walking -start topiramate Interval History Went to [facility]- had back injury- improving but still not 100% Water intake is high 160 oz Steps- 36245 steps was goal, 8500 was low. Then back injury but getting better. Proud of - made her health a priorty- taken in seriously. Is very happy with ETOH- does not have desire, many days on her log where has zero drinks, or only 1-2. But is not having multiple like she was before. Tracking protein,carbs and ETOH (which has been minimal) Feels medication is helping to decrease appetite and snacking. Goal-be c.w walking dogs at least once per day. 2x week at gym. Keep logging. Exercise: decreased- with back now but was daily Stress: stable Sleep: stable - Last Wt 06/01/23 : 284 lb (128.8 kg) 5% weight loss = 270 lbs, 10% weight loss = 256 lbs Last 2 Encounter Wt Readings: Date: Wt: 06/29/2023 279 lb (126.6 kg) 06/01/2023 284 lb (128.8 kg) Weight loss since last vist: 5lbs Weight and Change in Weight Flowsheet Row Most Recent Value Weight 279 lb (126.6 kg) Change in Weight -2.268 kg Change in Weight Since (Calculated) kg 0 kg Anti-Obesity Medications >Phentermine: No uncontrolled HTN, No CVD Hx or hx of seizure disorder. No MAOI inhibitor use. No drug abuse hx. Crcl > 15. >Topiramate/zonisamide: No seizure or kidney stone hx. hx of migraines, no hx of poor sleep. yes Child bearing age. >Qsymia: see above >Contrave: No contraindications. Could affect mood. No uncontrolled HTN or hx of seizure disorder. No MAOI inhibitor use. No opiate use. >Saxenda/Wegovy/Ozempic: Cost. Ins coverage? >Metformin: No contraindications or medication interactions. eGFR > 30. Estimated Creatinine Clearance: 151 mL/min (based on SCr of 0.76 mg/dL). PAST MEDICAL HISTORY Diagnosis Date NEGATIVE MEDICAL HISTORY Current Outpatient Medications Medication Sig Dispense Refill escitalopram oxalate (LEXAPRO) 10 mg tablet semaglutide, weight loss, (WEGOVY) 0.25 mg/0.5 mL pen injector Inject 0.5 mL subcutaneously one time a week for 28 days. 2 mL 0 topiramate (TOPAMAX) 50 mg tablet Take 1 tablet by mouth daily at bedtime. 30 tablet 1 escitalopram oxalate (LEXAPRO) 5 mg tablet Take 1 tablet by mouth every afternoon. levonorgestrel (MIRENA) 20 mcg/24 hours (5 yrs) 52 mg IUD 1 Each by INTRAUTERINE route as directed. 1 Each 0 No current facility-administered medications for this visit. ROS Denies Paraesthesia, brain fog BP 142/84 Pulse (!) 121 Wt 279 lb (126.6 kg) LMP 04/21/2022 (Approximate) SpO2 98% BMI 40.03 kg/m? Physical Exam Waist circumference- 44 down from 44.5 Assessment/Plan: Yan Hopson is a 33 year old yo female with class 3obesity who presented today for follow up for supervised weight lossto treat and prevent related co-morbidities. -continue topiramate -will start diethylpropione- dose up to 3 times daily reviewed with patient. ETOH has been limited, reviewed do not use in combination with any excessive ETOH use. -continue tracking -protein and lower carb, whole foods -planning for holidays reviewed -SE and risks of diethylpropion reviewed -offered PT for back if desired- will call if still having pain - low impact walking and stretching at this time. I spent a total of 40 minutes on the date of the service which included preparing to see the patient, [id number] patient care, completing clinical documentation, obtaining and/or reviewing separately obtained history, performing a medically appropriate examination, counseling and educating the patient/family/caregiver, and ordering medications, tests, or procedures. Follow up in 4-6 weeks Anai Dillon MD [facility] 06-03-2023 Miscellaneous Notes Patient notified. Dominique Mitchell RN This month I want her to start the topiramate only (1/2 tab for first two weeks then 1 tab daily). Next month we will see how she does and consider diethylproprion if needed date as discussed at her appointment. Patient called into office and stated she was notified that prior auth was denied by insurance for [employer]. We have not received fax today yet regarding this. Asking what the next option would be. Dominique Mitchell RN Submitted electronic PA. Will await further response from pt.insurance. Patricia Manrique LPN Pt's rufus tejada PA submitted. [employer] insurance on file and message received, unable to locate pt with that name or number. Mychart message to pt to supply insurance information. Will await further response from pt. Patricia Manrique LPN documented in this encounter [facility] 06-01-2023 Instructions Anai Lauren MD - 06/01/2023 3:16 PM EDT Images from the original note were not included. Weight Management: You have taken the initiative to become a healthier version of yourself and to decrease the risks that come with the diagnosis of obesity or being overweight. We are happy to help you along this journey but know this is a lifetime commitment to yourself. Losing just 3-10 % of your body weight can decrease your risks of many other serious diseases like diabetes, heart disease, osteoarthritis, hypertension, cancer and so many others. During this time you will have triumphs, setbacks and plateaus- your body will fight against you but we are here to give you the tools and the resources to continue to reach your goals. We recommend during this time that you track your weight daily or at least five times per week as well as tracking your nutrition. You may track your activity but do not use hitting your fitness goals as a reward system as this can derail your success. We recommend weekly physical activity of 150-200 min/week-although physical exercise can help with maintaining weight loss it adds only a little benefit for half-way weight loss success. However, exercise can have many other benefits including improving mental health and cardiovascular health. Do not feel overwhelmed- we will discuss this more at your visits. Our time will be limited with each visit but we will try to touch on factors that are important to you and to your overall goals. We will try to set a goal at the end of each visit and then decide on what we want to accomplish with your upcoming visits. On your After Visit Summary (AVS), we will provide you with information that may be useful during this journey so please remember to read the information given. Check your AVS a few days after your appointment because we may have added more information specifically for you. Remember that if you are placed on medications, they are tools that can help you succeed but you must put in the work. Your nutrition will be the main factor. There are medications that work well for some and not for others- so it may take time to find the right combination for your body's needs. Please remember that factors such as other health co-morbidities one might have, as well as insurance coverage, will play a factor in determining which medications you can take. Most of the newer medications that are all the craze ,injectables, may not be covered or will only be covered if you fail months of oral medications- so please be patient with the process. It would be beneficial for you to determine what your insurance covers as far as Anti-Obesity Medications (AOMs), Nutritional Counseling, behavioral intervention and weight loss surgery. Please call your health insurance prior to your first appointment and write down coverage for each of those therapies. Most importantly, remember that ultimately our goal is to help you get to a healthier weight which will decrease your overall health risks. We will work together as a team and try to reach your personalized goals as well. We appreciate that you have entrusted us with your health and know that we are committed to this process with you. Sincerely, Anai Nolasco MD, [employer] Olivia Petersen, DOUBLE END TENONER SETTER Obesity Obesity is a disease that affects nearly one-third of the adult [place] population (approximately 60 million). The number of overweight and obese Americans has continued to increase since 1959, a trend that is not slowing down. Today, 64.5 percent of adult Americans (about 127 million) are categorized as being overweight or obese. Each year, obesity causes at least 300,000 excess deaths in the [place] and healthcare costs of [place] adults with obesity amount to approximately $100 billion. (AOA) Obesity is a complex, multi-factorial chronic disease involving: Environmental (social and cultural) The tendency toward obesity is a result of our environment: lack of physical activity along with high-calorie, low-cost foods. Home, work, school, and even the community can inhibit a healthy lifestyle. Genetic (Hereditary plays a large role in determining how susceptible people are to overweight and obesity). Genes also influence how the body coe calories for energy and stores fat. Physiologic, metabolic, behavioral (eating too many calories while not getting enough exercise) and psychological components. It is the second leading cause of preventable in the [place] Behavioral changes brought on by economic development, modernization and urbanization have been linked to the rise in global obesity. Calculating BMI Body Mass Index (BMI) is a measurement tool used to determine excess body weight. Overweight is defined as a BMI of 25 or more, obesity is 30 or more, and severe obesity is 40 or more. You can visit www.nhlbi.nih.gov to estimate your BMI. Obesity Related Health Conditions The morbidity and mortality risk from being overweight is proportional to its degree. Individuals with morbid obesity, therefore, have the highest risk for developing numerous illnesses that often reduce mobility and quality of life due to their excess weight. In particular, type 2 diabetes, gallbladder disease and osteoarthritis have been found to increase concurrently with higher BMI. Premature , a 20-year shorter life span, has also been found in individuals with morbid obesity. All of the systems that make the body function are affected by morbid obesity. Type 2 diabetes Gallbladder disease and gallstones Liver disease Osteoarthritis, a disease in which the joints deteriorate. This is possibly the result of excess weight on the joints. Gout, another disease affecting the joints Pulmonary (breathing) problems, including sleep apnea in which a person can stop breathing for a short time during sleep Reproductive problems in women, including menstrual irregularities and infertility Gastroesophageal reflux/heartburn Hypertension Heart Disease Depression Psychological disorders/social impairments Urinary Stress Incontinence Obesity is also linked to higher rates of certain types of cancer. Obese men are more likely than non-obese men to from cancer of the colon, rectum, or prostate. Obese women are more likely than non-obese women to from cancer of the gallbladder, breast, uterus, cervix, or ovaries [email or web address] [email or web address] Nutrition - Eat primarily whole foods. Limit carbs, especially processed carbs. - Do not drink your calories - 30 grams of protein for breakfast decreases your hunger during the day by up to 40 % Premier Protein or generic 30 gm protein 1 gm sugar - Walk for 15 minutes immediately a meal. TOPIRAMATE -- Take 25mg (1/2 tablet) daily x 2 weeks -- Then increase to 50mg daily after the initial two weeks so long as you are not having any side effects. -- You can take the tablet it at night at first (because of potential sleepiness side effects), but then you can take earlier around dinner after you have started the medication for a few days. You also may be able to take it in the morning if easier. -- We may increase the dose to 75mg a few weeks later if there is no change with 50mg, Typically the maximum medication dose would be 150mg daily but rarely would we need to titrate medication dose that high. -- The exact mechanism of topiramate on energy balance regulation is not clearly understood. Topiramate affects body mass index, fasting zwdwuqi-xn-hyzucpr ratio, and serum leptin and cortisol levels. It has shown to improve hypothalamic insulin and leptin signaling and action and reduce obesity in mice. These changes may be davidson factors in weight loss due to topiramate. If at any point you are feeling the effects of the medication you can stay at that dose or if you experience side effects you can decrease it to the previous dose. -- Please see the handout to review the potential side effects and to explain this further -- Please let me know if you experience any changes in your vision, worsening depression or mood problems, or an increase in suicidal thoughts or behaviors. --This medication should NOT be combined with alcohol. Risks of drinking alcohol while taking this medication include mental and psychological side effects, including confusion, dizziness, drowsiness, and depression. -- There is an increased risk for oral clefts when topiramate is used in the first trimester of . -- There is a possible decrease in contraceptive efficacy when using estrogen-containing control with topiramate, please use a back up form of control such as condoms and monitor for throughout treatment. -- If you decide that you would like to get or if you have any of these side effects please let me know and we can safely discontinue the medication. - If you are on loop diuretic or thiazide diuretic we will want to monitor your potassium level, especially if you have a history of low potassium. - It is important to taper off of this medication when we finished with treatment, typically decreasing the dose 25 mg a week. Stopping Topiramate abruptly can cause irritability, anxiety and difficulty concentrating. Topiramate (toe pyre a mate) What are the common names? Topamax Why is this medication prescribed? Topiramate is an anti-epileptic medications which has been approved by the FDA for patients 10 years of age or older for treatment of seizures. However, topiramate also has other uses such as the treatment of migraines. It also causes decrease in appetite and weight loss. The mechanism of weight loss is thought to be through inhibition of mitochondrial enzymes involved in energy expenditure and metabolism. Topiramate may work by helping you feel less hungry, less driven to eat, more satisfied with less food. What special precautions should I follow? Before having topiramate prescribed, tell your doctor and pharmacist: If you have allergies to any component of topiramate If you are , plan to become , are breast-feeding, or if you become while taking topiramate What are the warnings and precautions for this medication? Immediately discontinue the medicine and seek medical help if you have severe cognitive/neuropsychiatric adverse symptoms or eye symptoms. Cognitive/neuropsychiatric adverse events: symptoms may include confusion, psychomotor slowing, difficulty with concentration/attention, difficulty with memory, speech or language problems, particularily word-finding difficulties, somnolence or fatigue Acute myopia and secondary angle closure glaucoma, usually within 1 month of starting treatment: symptoms may include blurred vision, redness and/or pain in the eye Oligohydrosis (decrease sweating) and hyperthermia (elevation in body temperature) Increase in suicidal behavior or ideation Metabolic acidosis, non-gap hyperchloremic (decreased serum bicarbonate below normal levels) resulting in hyperventilation or fatigue Kidney stones Paresthesias (numbness or tingling in hands or feet) Ataxia Dizziness Increase in urination frequency Drug interactions. Use of monamine oxidase inhibitors (MAOI s), valproic acid, Caution use with dehydration or diarrheal illness, hepatic or renal impairment In case of emergency/overdose In case of overdose, call your local poison control center at or call local emergency services at [phone]. What other information should I know? Keep all appointments with your doctor and the laboratory. Do not let anyone else take your medication. Topiramate use needs to be monitored closely. Prescriptions may be refilled only a limited number of times. Keep a written list of all of your prescription and nonprescription (vtow-cnv-lwoyoky) medicines, in addition to vitamins, minerals, or other dietary supplements. How should I monitor while on this medication? Your doctor will check your baseline kidney function and electrolytes prior to starting this medication, then periodically. Continue to improve your dietary and physical activity habits as the combination works best while on this medication. Start out by taking the medication at bedtime as it can cause fatigue and sleepiness. Be sure to eat regular meals. Less hunger does not make it appropriate to skip meals. Make sure to have an eye exam, including the pressure in your eyes (intra-ocular pressure), once a year. What should I do if I forget a dose? Skip the missed dose and continue your regular dosing schedule the next day. Do not take a double dose to make up for a missed one. Sources Pubmed Health: http://www.ncbi.nlm.nih.gov/pubmed health/JKF9629238/ Drugs.com http://www.drugs.com/pro/topiramat e.html SEMAGLUTIDE 2.4mg (WEGOVY) Please keep medication refrigerated* If needed, Wegovy can be kept outside of the refrigerator with the pen cap still on for up to 28 days. Unused pens that are stored in the fridge are safe to use up until their expiry date. How Does Wegovy Work? Wegovy works by mimicking a hormone that targets areas of the brain involved in regulating appetite and food intake. This can help you eat less, which can lead to weight loss. How much weight can I lose on Wegovy? In a 68-week medical study of 1,961 adults living with obesity or excess weight with a related medical problem, adults lost ~35 lbs (or ~15% body weight). People taking placebo lost an average of 6 lbs (or ~2.5% body weight). The average starting weight for both groups was ~232 lbs. How soon can I expect to lose weight with Wegovy ? People respond to medicines differently, so there is no set time for when you can expect to see results with Wegovy . Ask your health care provider about what might be a realistic expectation for you. What are the most common side effects of Wegovy ? The most common side effects of Wegovy may include: nausea, diarrhea, vomiting, constipation, stomach (abdomen) pain, headache, tiredness (fatigue), upset stomach, dizziness, feeling bloated, belching, gas, stomach flu, and heartburn. Can I travel with Wegovy ? It is possible to travel with your Wegovy pen: When traveling by air, keep your Wegovy pen with you or in your carry-on, as it may freeze in the baggage compartment. Be sure to check with the airline to see if they have any specific baggage rules. If needed, Wegovy may be stored between 46 F and 86 F in the original carton for up to 28 days. How often is Wegovy taken? Wegovy is taken once a week, any time of day, with or without food. (Try taking it at night at first) Can I change the day or time when I take Wegovy ? Take Wegovy 1 time each week, on the same day each week, at any time of the day. You may change the day of the week you take Wegovy as long as your last dose was given 2 or more days before. What should I do if I have missed a dose of Wegovy ? If you miss a dose of Wegovy and the next scheduled dose is more than 2 days away (48 hours), take the missed dose as soon as possible. If you miss a dose of Wegovy and the next scheduled dose is less than 2 days away (48 hours), do not administer the dose. Take your next dose on the regularly scheduled day. If you miss doses of Wegovy for more than 2 weeks, take your next dose on the regularly scheduled day or call your health care provider to talk about how to restart your treatment. What if I m nervous at the thought of injecting myself? If you sign up for [employer] , one of our coaches can walk you through the injection process. You may also refer to the Weeshteryy Instructions for Use for full instructions. How can I dispose of my used Wegovy pens? It s important to properly dispose of your used Wegovy pens. Do not throw the pen away in your household trash. Instead, use an FDA-cleared sharps disposal container or a sturdy household container with a tight-fitting lid, like a heavy-duty plastic container. Other requirements include puncture resistant, upright and stable during use, leak resistant and properly labled. Further Questions? You can also always call a [employer] Insurance Claims Adjuster at [phone]. Or see the resources below. Copied from https://www.[employer]/ Please visit the website below for the medication guide. https://www.[employer]/ Link to savings card: https://www.[employer]/sa vings-card.html Video on how to use the pen: https://www.[employer]/about-wegov y/ugi-if-fue-lyp-xqpyxm-jtf.html Starting WEGOVY : Go to [employer]ing.com to watch a video on how to administer the medication Please read through all of the information below before starting the medication. Dosing instructions: 0.25 mg weekly x 4 weeks 0.5 mg weekly x 4 weeks 1.0 mg weekly x 4 weeks 1.7 mg weekly x 4 weeks 2.4 mg weekly going forward Your provider may slow down this dose escalation depending on your response to the medication and adverse effects. Each dose increase will require a new prescription. Injection Instructions: Step 1. Prepare for your injection. Supplies you will need to give your WEGOVY injection: WEGOVY pen 1 alcohol swab or soap and water 1 gauze pad or cotton ball 1 sharps disposable container for used WEGOVY pens Wash your hands. Check your WEGOVY pen. Do not use your WEGOVY pen if: The pen appears to have been used or any part of the pen appears broken, for example if it has been dropped. The WEGOVY medicine is not clear and colorless through the pen window. The expiration date (EXP) has passed. Contact [employer] at if your WEGOVY pen fails any of these checks. Step 2. Choose your injection site. You may inject into your upper legs (front of the thighs) or lower stomach (keep 2 inches away from your belly button). Another person may give the injection in the upper arm. Do not inject into an area where the skin is tender, bruised, red, or hard. Avoid injecting into areas with scars or stretch springer. You may inject in the same body area each week, but make sure it is not in the same spot each time. Clean the injection site with an alcohol swab or soap and water. Do not touch the injection site after cleaning. Injection Step 3. Remove pen cap. Pull the pen cap straight off your pen The needle is covered by the needle cover and the needle will not be seen. Do not remove the pen cap until you are ready to inject. Do not touch or push on the needle cover. You could get a needle stick injury. Step 4. Inject WEGOVY . The dose of WEGOVY is already set on your pen. Your WEGOVY injection will begin when the needle cover is pressed against your skin. Push the pen firmly against your skin until the yellow bar has stopped moving. If the yellow bar does not start moving, press the pen more firmly against your skin. You will hear 2 clicks during the injection. Click 1: the injection has started. Click 2: the injection is ongoing. Keep holding for a few seconds until yellow bar stops moving. Yellow bar has stopped moving. The injection is complete. Lift the pen slowly. What if blood appears after injection? If blood appears at the injection site, press the site lightly with a gauze pad or cotton ball. Step 5. Throw away (dispose of) pen. Your WEGOVY pen is for 1 time use only. Safely dispose of the WEGOVY pen right away after each use. Put the used WEGOVY pen in an FDA-cleared sharps disposal container right away after use. Do not throw away (dispose of) the pen in your household trash. If you do not have an FDA-cleared sharps disposal container, you may use a household container that is: made of a heavy-duty plastic, able to be closed with a tight-fitting, puncture-resistant lid, without sharps being able to come out, upright and stable during use, leak-resistant, and properly labeled to warn of hazardous waste inside the container. When your sharps disposal container is almost full, you will need to follow your community guidelines for the right way to dispose of your sharps disposal container. There may be state or local laws about how you should throw away used needles and syringes. For more information about safe sharps disposal, and for specific sharps disposal in the state that you live in, go to the FDA's website at http://www.fda.gov/safesharpsdispo krystal. Do not reuse the pen. Do not recycle the pen or sharps disposal container, or throw them into household trash. Important: Keep your WEGOVY pen, sharps disposal container and all medicines out of the reach of children. Additional important information: Store the WEGOVY pen in the refrigerator between 36 F to 46 F. If needed, before removing the pen cap, WEGOVY can be stored from 46 F to 86 F in the original carton for up to 28 days. Keep WEGOVY in the original carton to protect it from light. Do not freeze. Throw away the pen if WEGOVY has been frozen, has been exposed to light or temperatures above 86 For has been out of the refrigerator for 28 days or longer. Inject WEGOVY on the same day of the week, at any time of day. If you need to change the day of the week, you may do so as long as your last dose of WEGOVY was given 2 or more days before. If you miss a dose of WEGOVY and the next scheduled dose is more than 2 days away (48 hours), take the missed dose as soon as possible. If you miss a dose of WEGOVY and the next schedule dose is less than 2 days away (48 hours), do not administer the dose. Take your next dose on the regularly scheduled day. If you miss doses of WEGOVY for more than 2 weeks, take your next dose on the regularly scheduled day or call your healthcare provider to talk about how to restart your treatment. You can take WEGOVY with or without food. If you take too much WEGOVY , you may have severe nausea, severe vomiting and severe low blood sugar. Call your healthcare provider or go to the nearest hospital emergency room right away if you experience any of these symptoms. If you have type 2 diabetes, please monitor your blood sugar closely during WEGOVY treatment. Side effects to watch out for: Nausea/vomiting, constipation, diarrhea, heartburn, increased heart rate, fatigue, headache, and rarely, suicidal thoughts. With this medication, there is a slightly increased risk of pancreatitis and gallstones. Please notify me or seek immediate medical attention if you experience any of the above. Helpful tips for managing nausea on Wegovy Nausea is a common side effect when first starting Wegovy . If you experience nausea, be sure to connect with your health care provider. He or she will offer guidance on ways to manage it, which may include: Eat bland, low-fat foods, like crackers, toast and rice Eat foods that contain water, like soups and gelatin Avoid lying down after you eat Go outdoors for fresh air Eat more slowly Copied from https://End[employer]Evolution.On Networks/ Meal replacements: Meal Replacements Plant-based protein bars Meal replacements. One option that works for some people is to use meal replacements, as in the DiRECT and Look AHEAD trials.The available options in Look AHEAD included shakes, bars, and meals from a variety of companies (CareOne, Micro[employer] Solutions, OptiSmartThings, and Sourcebits). The calorie content was 150 to 220 calories, depending on the product. People who used meal replacements 12 times a week instead of preparing their own meals lost about 11% of their weight in the first year, whereas those who used just two per week lost about 6% of their weight. Keep in mind, though, that people in the trial who used meal replacements also tended to consume a healthier diet over all; they were more likely to have met their goals for dietary fat, fruits and vegetables, and dairy foods, and to have cut back on sweets, than those who didn t use meal replacements. Similarly, in the DiRECT trial, participants consumed special nutritionally complete shakes and soups (the Counterweight-Plus program) for the first 12 weeks.If you opt for meal-replacement drinks, bars, or frozen entrees, here are some criteria to look for: calories, 150 to 300 fat, 3 to 10 grams protein, > 20 grams sugar < 5 g Meal replacements are typically fortified with vitamins and minerals and contain some fiber. Because they are calorie controlled, the amount of added sugars is usually minimal. If you want to try this approach to boost weight loss, ask your dietitian or another member of your health care team how to incorporate the replacements into your meal planning and discuss whether you might need to reduce your doses of diabetes medications to prevent hypoglycemia (low blood sugar) as you cut calories and lose weight. It is important to find a meal-replacement product that suits your taste. If you prefer not to consume processed foods, you can make your own portion-controlled versions. Note that meal replacements don t work for everyone. While some people like meal-replacement shakes, bars, and soups and find them to be a convenient way to sustain a reduced calorie intake over time, others don t feel satisfied drinking them and often end up simply adding them to what they d normally eat--which could lead to weight gain. What s more, some people have a hard time readjusting to eating real food after they stop using meal replacements. Protein - no carbs Egg 1 large - 6g Egg white 1 large 3.6g 3 oz is approximately the size of a deck of cards and equals 21 g protein Beef, Chicken, Lazbuddie, Pork, Rivas 1 oz 7g Fish, Tuna Fish 1 oz 7g Seafood (Crabmeat, Shrimp, Lobster) 1 oz 6g Protein shakes (read labels) Premier Protein or generic [employer] Equate, Aldi Elevate, Meijer High Performance- 30g protein & 1g carb - meal replacement Premier Protein plant protein powder - 25 gm protein, 0 suger/2 carb Vanilla and chocolate (not a meal replacement) Fairlife 30 gram protein - 30g protein & 3g carb BOOST Glucose Control Max 30g Protein Nutritional Drink - 30g protein & 1 carb - meal replacement Slimfast High Protein - 20g protein & 1g carb Ensure Max Protein Nutrition Shake 30g protein & 2 carb Protein AND carbs Beef/Lazbuddie Jerky 1 oz dried 10-15g protein - check carb count, can be high if sugar added Slim Jadon - 6 gm protein and 4 net carb Great Value original turkey sausage sticks - 7 gm protein and 2 gm carb Imitation Crab Meat 1 oz - 2g protein & 4g carb Milk, skim 2% or 1% 8 oz - 8g protein & 12g carb Samoan yogurt Full Fat Samoan Yogurt 1 cup - 20.4g protein & 9.1g carb 2% Samoan Yogurt 1 cup - 22.7g protein & 9.1g carb 0% (fat-free) Samoan Yogurt - 1 cup 24g protein & 9.3g carb :ratio, KETO Friendly Dairy Snack 1 single svg - 15g protein & 2g carb :ratio Protein 1 single svg - 25g protein & 8g carb Dannon Light + Fit 1 single csvg - 12g protein & 9g carb Two Good Lowfat Samoan Yogurt, [place], Lower Sugar - 12g protein & 2g carb Oikos Triple Zero Samoan Nonfat Yogurt 1 single svg - 15g protein & 7g carb Cheese each oz Brie 5.9g protein & 0.1g carb Cheddar Cheese 7g protein & 0.4g carb Mozzarella Cheese 6.3g protein & 0.6g carb Donnell Cheese 6.7g protein & 0.7g carb Parmesan Cheese 10g protein & 0.9g carb Cream Cheese 1.7g protein & 1.2g carb Feta 4g protein & 1.2g carb Macedonian Cheese 7.6g protein & 1.5g carb Wallace s Low Fat Cottage Cheese 1/2cup 12g protein & 4g carb Legumes Lentils cup 9g protein & 20g carb Nation beans cup 7g protein & 20g carb Kidney, Black, Ector, Cannellini beans cup 8g protein & 20g carb Soybeans 1/2 c 14g protein & 8.5g carb Peanut butter, natural 2 Tbsp 7-8g protein & 4g net carbs, 190 calories Clayton milk, unsweetened 8 oz 1g protein & 2g carb Soy milk 8 oz 3.5g protein & 1.6g carb Tofu 1/2 cup 10g protein & 2.3g carb Nuts and Seeds per oz Pumpkin Seeds - 6.9g protein & 5g carb Almonds - 5.9g protein & 6.1g carb Malott Seeds - 5.8g protein & 5.6g carb Pistachios - 5.8g protein & 7.8g carb Cashews - 5.1g protein & 9.2g carb Walnuts - 4.3g protein & 3.8g carb Hazelnuts - 4.2g protein & 4.7g carb Austin Nuts - 4.0g protein & 3.4g carb Pecans - 2.6g protein & 3.9g carb Peanuts - 7g protein & 4.6g carb When you take medications like TOPAMAX and ZONEGRAN they tend to cause an imbalance in your pH levels. This imbalance causes side effects like foggy head, forgetfulness, confusion, difficulty recalling simple words or names, and tingling in your hands and feet. Citric acid may help to neutralize the imbalance caused by the medication. Also stay hydrated! With low fluid intake, urine output is decreased and urine flow is slower, both of which increase the risk of pH imbalance. Avoid soda as well. Increase the proportion of fruits and vegetables and reduce your daily protein intake to 0.8-1.0 g per kg body weight. Zyga Link: jenny [facility] : TRUE LEMON Water Enhancer True Lemon ([employer]) If neither of these are effective you can try: Euphasia https://JNJ Mobiledbodyandspirit.c om/pages/qvxvena-uyrx-dtqxfcc Sources https://www.ncbi.nlm.nih.gov/pmc/a rticles/GTI3204777/ https://www.ncbi.nlm.nih.gov/pmc/a rticles/ALI0327816/ <15 gram carb fruit options Berries have the lowest sugar content 1/2 cup diced honeydew melon - 8 carbs 1/2 cup diced watermelon - 6 carbs One half medium grapefruit - 10.5 carbs 1 medium orange -15.5 carbs 1 medium peach -14.5 carbs 1/2 cup fresh cranberries - 6.5 carbs 1 medium plum -7.5 carbs 1/2 cup raspberries -7.5 carbs 1 medium Juliana -9 carbs 1/2 cup fresh pineapple -11 carbs 1 medium nectarine - 15 carbs 1/2 cup blueberries - 11 carbs - may actually help you lose weight 1 medium kiwi without skin - 11 carbs 1/2 cup fresh cherries -11 carbs 1 medium tangerine -12 carbs 1/2 cup sliced cooper -14 carbs 1/2 medium banana 1/2 c grapes 1/2 medium apple - 12.5 carbs 1/2 c strawberries - 12.7 carbs 5 (FIVE) gram carb vegetable options 1 cup raw OR cup cooked: Asparagus Cabbage Spinach Peppers Green beans Carrots Tomato [place] Ahn sprouts Cauliflower Lettuce Snap peas Broccoli Eggplant Zucchini Turnips Spaghetti squash 15 gram carb vegetable options cup cooked green peas cup cooked corn or hominy corn on the cob, large (5 oz) cup cooked sweet potato, plain cup cooked potato, plain 1 small potato or sweet potato 1 cup winter squash (pumpkin, acorn, butternut) 1 cup marinara or pasta sauce - check label cup tomato juice cup tomato puree Beans, Seeds, Nuts cup cooked beans (kidney, link, red, green, etc.) cup cooked lentils cup baked beans 4 tablespoons nut butter Educational Podcasts: The Dr. Chung Show- Real Conversations about Health and Weight * May 04, 2023 what you need to know about Carbohydrates and Weight *April 13, 2023 Protein why we need it and how to eat more Protein *March 23, 2023 Menopause and Weight Gain- All the Details with Dr. Clari Leos *March 02, 2023 The Science Behind Ultra Processed Food and Weight Gain *December 15, 2022 Effects of sleep and Stress of Weight and Health with Dr. Rebecca Sawyer-Withers, DO * December 08, 2022 Recognizing and Resolving Emotional Eating with Dr. Lin Obesity: A Disease *December 08, 2022 Episode 80 Clinical conversations: The Role of Physical Activity in Weight Management * March 20, 2023 Episode 84 Clinical Conversations: NAFLD, The Dalton Disease of Metabolic Syndrome *March 192019 Episode 20 Article Reviews: The Role Ultra Processed Diets Play in Weight Gain *February 29, 2020 Episode 21 Clinical Conversations: Breaking Weight Plateaus When thinking about weight-loss, one often has an ideal body weight in mind or an ultimate weight-loss goal. It s very common for people to think that unless they lose dozens of pounds, they will not be any healthier. This is a misconception. Studies have shown that health benefits resulting from weight-loss are evident with a weight reduction as low as 5-10 percent. This means that an individual that weighs 200 pounds will benefit greatly from losing 10 to 20 pounds. A 5-10 percent weight-loss can result in: A five point increase in HDL cholesterol. Decrease triglycerides by an average of 40 mg/dl Decrease in blood pressure, both systolic and diastolic, by 5 mmHg on average. Decrease HgB A1C by half a point on average Significant decrease in insulin levels May improve sleep apnea and sometimes if the apnea was not very severe, one can be weaned from the CPAP breathing machine Decrease in levels of inflammatory substances circulating in the blood drop significantly and therefore the risk of vascular damage is reduced as well How alcohol affects your weight loss 1. Alcohol is often empty calories Alcoholic drinks are often referred to as empty calories. This means that they provide your body with calories but contain very little nutrients. There are almost 155 calories in one 12-ounce can of beer, and 125 calories in a 5-ounce glass of red wine. By comparison, a recommended afternoon snack should have between 150 and 200 calories. A night out with several drinks can lead to consuming a few hundred extra calories. Drinks that have mixers, such as fruit juice or soda, contain even more calories. 2. Alcohol is used as a primary source of fuel There are also other elements that can cause weight gain outside of calorie content. When alcohol is consumed, it s burned first as a fuel source before your body uses anything else. This includes glucose from carbohydrates or lipids from fats. When your body is using alcohol as a primary source of energy, the excess glucose and lipids end up, unfortunately for us, as adipose tissue, or fat. 3. Alcohol can affect your organs The primary role of your liver is to act as the filter for any foreign substances that enter your body, such as drugs and alcohol. The liver also plays a role in the metabolism of fats, carbohydrates, and proteins. Excess alcohol consumption can lead to what is known as alcoholic fatty liver. This condition can damage your liver, affecting the way your body metabolizes and stores carbohydrates and fats. Changes in the way your body stores energy from food can make it very difficult to lose weight. 4. Alcohol can contribute to excess belly fat The beer gut isn t just a myth. Foods high in simple sugars, such as those found in candy, soda, and even beer, are also high in calories. Extra calories end up stored as fat in the body. Consuming foods and drinks high in sugar can quickly lead to weight gain. We can t choose where all that extra weight ends up. But the body tends to accumulate fat in the abdominal area. 5. Alcohol affects judgment calls especially with food Even the most -hard diet fan will have a hard time fighting the urge to dig in when intoxicated. Alcohol lowers inhibitions and can lead to poor decision-making in the heat of the moment -- especially when it comes to food choices. However, the effects of alcohol surpass even social drinking etiquette. A recent animal studyTrUnited Health Services found that mice given ethanol over a period of three days demonstrated a significant increase in food intake. This study suggests that alcohol can actually trigger hunger signals in the brain, leading to an increased urge to eat more food. 6. Alcohol and sex hormones It s long been known that alcohol intake can affect levels of hormones in the body, especially testosteroneTrusted Source. Testosterone is a sex hormone that plays a role in many metabolic processes, including muscle formation and fat burning capabilities. One study found that low testosterone levels may predict the prevalence of metabolic syndrome in men. Metabolic syndrome is characterized by: high cholesterol high blood pressure high blood sugar levels high body mass index Plus, lower testosterone levels may affect quality of sleep, especially in older men. 7. Alcohol can negatively affect your sleep A nightcap before bed may sound like a ticket to a good night s rest but you may want to reconsider. ResearchTrusted Source suggests that alcohol can lead to increased periods of wakefulness during sleep cycles. Sleep deprivation, whether from lack of sleep or impaired sleep, can lead to an imbalance in the hormones related to hunger, satiety, and energy storage. 8. Alcohol affects digestion and nutrient uptake Your social anxiety isn t the only thing that alcohol inhibits. Intake of alcoholic beverages can also inhibit proper digestive function. Alcohol can cause stress on the stomach and the intestines. This leads to decreasedTrusted Source digestive secretions and movement of food through the tract. Digestive secretions are an essential element of healthy digestion. They break down food into the basic macro- and micronutrients that are absorbed and used by the body. Alcohol intake of all levels can lead to impaired digestion and absorption of these nutrients. This can greatly affect the metabolism of organs that play a role in weight management. Best alcoholic drinks for weight loss This may all sound as if alcohol is ruining your chances of that beach body. But fear not -- watching your weight doesn t necessarily mean having to cut alcohol entirely out of your diet. Rather than reaching for drinks high in sugar or calories, enjoy some of these 100-calorie options instead: 1. Vodka Calories: 100 calories in 1.5 ounces of distilled 80-proof vodka Alternative cocktail: Choose low-calories mixers such as club soda and avoid overly sugary juices. 2. Whiskey Calories: 100 calories in 1.5 ounces of 86-proof whiskey Alternative cocktail: Ditch the cola and take your whiskey on the rocks for a low-calorie alternative. 3. Gin Calories: 115 calories in 1.5 ounces of 90-proof gin Alternative cocktail: Aim for something simple, such as a martini -- and don t skip the olives, they contain beneficial antioxidants such as vitamin E. 4. Tequila Calories: 100 calories in 1.5 ounces of tequila Alternative cocktail: The best part about tequila is that the customary tequila shot is just salt, tequila, and grand traverse. 5. Luly Calories: 100 calories in 1.5 ounces of luly Alternative cocktail: This drink is best served as an after-dinner digestif and a good luly should be enjoyed slowly to savor the subtle fruity sweetness. The bottom line While cutting alcohol completely out of your diet isn t necessarily the only way to lose weight, there are many improvements that can be made in your health journey by simply cutting back on the booze. You can enjoy a healthier body, improved sleep, better digestion, and fewer of those excess empty calories. And if you do plan to drink, enjoy a vodka or whiskey on the rocks -- and skip the soda! [email or web address].On [employer] The [employer] World/health/ vepqxvp-cbm-wnkzvt-loss#alcohol-an v-xmnqfq-yfwt documented in this encounter [facility] 06-01-2023 History of Present illness Narrative Images from the original note were not included. Patient Summary: Yan Hopson is a 33 year old female with obesity who presents for an initial evaluation of overweight/obesity to treat and prevent co-morbidities and is interested in combination of behavioral and pharmacological. Motivation for seeking treatment for the disease of overweight/obesity : feel better Goal weight: 200lbs Lowest recall weight: 190 (2016) Highest recall weight: 284Lbs Patient identified barriers to weight loss: none Weight History: She reports a family history of obesity and early adulthood weight gain. She states her weight gain is related to the following factors, including reduced physical activity, consumption of unhealthy foods, and drinking more. - Last Wt 06/01/23 : 284 lb (128.8 kg) 5% weight loss = 270 lbs, 10% weight loss = 256 lbs WEIGHT GRAPH: Diet/Nutrition overview: Wake up 6-7am- water and black coffee- eat three full meals. Breakfast 8am- 2 eggs, toast, meast and Cottage cheese Lunch- McDonalds- or salad from fast food Snack- does not consistently snack- yogurt or cottage cheese. Dinner- 6-7pm- Hello Fresh 3 x week. Then take out 4 days per week could vary from pizza to healthier. Fluids: water- 80-90oz/day, Has Drinks starting 6-7pm. (6 drinks per night Michaelob ultra or wine). Quality of diet: 24hr recall suggests unhealthy diet. Characterization of diet:Structured, unhealthy snacking, excessive cravings, and evening snacking. Directory Compiler of impaired eating habits:lack of satiety and boredom Eating Disorder no Preferred foods: no Cravings: salty savory ?Sleep: Duration: 8 hours. KIARA NO ; CPAP NO ??Stress: Stress:no, Cause:None Obesity Related Comorbidities: Prior Weight Loss Surgery:No PAST MEDICAL HISTORY Diagnosis Date NEGATIVE MEDICAL HISTORY PAST SURGICAL HISTORY Procedure Laterality Date TONSILLECTOMY HX age 15 FAMILY HISTORY Problem Relation Age of Onset Diabetes Mother Asthma Father COPD Father Breast Cancer Paternal Aunt Social History Tobacco Use Smoking status: Never Smokeless tobacco: Never Vaping Use Vaping Use: Never used Substance Use Topics Alcohol use: Yes Drug use: Never Medications: none Weight Promoting Medications: Lexapro Diet/weight loss History: 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 MyFitnessPal Exercise: Regular exercise: no Strength/resistance exercise:yes 1-2 times a week Barriers to regular exercise? no Work-related activity:Sedentary. 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 Obesity ROS/ FHx GEN: Fatigue:yes CV: h/o palpitations/cardiac arrhythmia, Chest pain: no HTN: no PULM: Asthma:no GI: GERD:no ; Gallstones:no ; Fatty liver disease:no Pancreatitis: no MSK: Joint Pain:no : Nephrolithiasis: no Symptoms of PCOS: no NEURO: Migraines/GORDON: no; H/o seizures: no Glaucoma:no; Cataracts no Symptoms of or History of pseudotumor cerebri:no Family or personal History of MEN2 or Medullary thyroid cancer: no PE BP 138/86 Pulse 67 Wt 284 lb (128.8 kg) LMP 04/21/2022 (Approximate) SpO2 99% BMI 40.75 kg/m Weight Circumference: 44.5 Neck Circumference: GENERAL: Female in NAD. Mixed central and gluteofemoral adiposity. SKIN: acanthosis nigricans no, Skin tags: no Hirsutism: no HEENT: PERRL, No supraclavicular adiposity. No dorsal adiposity. RESPIRATORY: CBTA CARDIAC: RRR ABDOMEN: Small pannus; EXTREMITIES: peripheral edema: no Results: reviewed with the patient Appointment on 04/30/2023 Component Date Value Ref Range Status Hemoglobin A1C 04/30/2023 5.2 4.3 - 5.6 % Final Estimated Average Glucose 04/30/2023 103 mg/dL Final Insulin 04/30/2023 7.8 3.0 - 25.0 mU/L Final Vitamin D 25 Hydroxy 04/30/2023 36.8 31.0 - 80.0 ng/mL Final Cholesterol, Total 04/30/2023 151 <200 mg/dL Final Triglyceride 04/30/2023 50 <150 mg/dL Final HDL Cholesterol 04/30/2023 63 >39 mg/dL Final Non HDL Cholesterol 04/30/2023 88 <130 mg/dL Final Fasting Time 04/30/2023 12 hrs Final VLDL Cholesterol 04/30/2023 10 <30 mg/dL Final TC:HDL Ratio 04/30/2023 2.40 <5.10 Final LDL Cholesterol 04/30/2023 78 <100 mg/dL Final LDL:HDL Ratio 04/30/2023 1.24 <2.54 Final Protein, Total 04/30/2023 6.4 6.3 - 8.0 g/dL Final Albumin 04/30/2023 4.0 3.9 - 4.9 g/dL Final Calcium, Total 04/30/2023 8.7 8.5 - 10.2 mg/dL Final Bilirubin, Total 04/30/2023 0.2 0.2 - 1.3 mg/dL Final Alkaline Phosphatase 04/30/2023 83 34 - 123 U/L Final AST 04/30/2023 13 13 - 35 U/L Final ALT 04/30/2023 15 7 - 38 U/L Final Glucose 04/30/2023 93 74 - 99 mg/dL Final BUN 04/30/2023 12 7 - 21 mg/dL Final Creatinine 04/30/2023 0.76 0.58 - 0.96 mg/dL Final Sodium 04/30/2023 139 136 - 144 mmol/L Final Potassium 04/30/2023 4.4 3.7 - 5.1 mmol/L Final Chloride 04/30/2023 105 97 - 105 mmol/L Final CO2 04/30/2023 26 22 - 30 mmol/L Final Anion Gap 04/30/2023 8 (L) 9 - 18 mmol/L Final Estimated Glomerular Filtration Ra* 04/30/2023 106 >=60 mL/min/1.73m Final TSH 04/30/2023 1.680 0.270 - 4.200 mIU/L Final Impression: Yan Hopson is a 33 year old Female with Class III obesity (Body mass index is 40.75 kg/m .) who has adult onset obesity with gradual weight gain. The causes of her obesity are multifactorial, biological, psychological and social and environmental. Specific factors include exposure to weight gain promoting medication(s) , increased consumption of high calorie/process foods, irregular eating patterns , and suboptimal physical activity. She has no significant weight-related medical comorbidities which increase her cardiovascular mortality risk. There are no additional metabolic obesity complications including fatigue and malaise . Other medical conditions as above. Regarding her lifestyle, as above, she has a few behavioral contributors ; her physical activity is suboptimal. Overall, it is clear that her quality of life is moderately compromised by her weight. It is likely a combination of weight loss therapies will be needed. She appears motivated today. 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 -- We discussed several strategies to track food intake and increase mindfulness around eating while will decrease calorie intake. She was counseled on the following: Eating primarily whole foods. Limit carbs, especially processed carbs. Do not drink your calories 30 grams of protein for breakfast decreases your hunger during the day by up to 40 % Premier Protein or generic 30 gm protein 1 gm sugar Walk for 15 minutes immediately a meal. -- Encouraged the patient to improve her physical activity. Although cardiovascular exercise is most beneficial for weight loss initially, we discussed healthy muscle from a combination of resistance training and cardiovascular exercise is the best ad terminal makeup operator plan. An overall goal of 150-200 minutes per week of exercise has been effective in weight loss and maintenance. -- Reviewed that monitoring weight daily and food intake can have a positive impact on overall weight loss and maintenance of weight loss. Activity tracking can be used to stay on target for exercise however should not be used to reward oneself She understands that there can be limitations of pharmacotherapy due to contraindications, side effects and cost. Patient was told to contact her insurance company to see what AOMs and supervised behavioral medical appointments are currently covered. Patient understands she will have more success when following a healthy lifestyle. We reviewed continued use of online tracking of daily weights, food journal and if desired physical activity. We reviewed that during management she is to report any concerning side effects of any pharmacotherapy she is placed on. She understands that she will need routine follow up in the office. Prior to any virtual visits in the future she will need to check her Blood pressure, weight, and pulse. We discussed alcohol use and impact on weight. Pt is open and is actively seeking help. We reviewed not candidate for certain medications due to increased risks of w/drawl and seizures- with bupropiron. Caution with using phentermine or Diethylpropion- would consider Diethylproprion due to shorter half life- only has drinks in evening. Will start with topiramate- reviewed off label use and risks of this medication. Patient uses IUD for control. Will try WEGOVY- ordered. If not covered will consider diethylpropion at next visit. Low CHO High PRO diet reviewed in detail. (R53.81, R53.83) Malaise and fatigue (primary encounter diagnosis) (R63.5) Unintended weight gain (E66.01, Z68.41) Class 3 severe obesity with body mass index (BMI) of 40.0 to 44.9 in adult, unspecified obesity type, unspecified whether serious comorbidity present (HCC) -- follow-up visit in 4 weeks for management of above interventions I spent a total of 60 minutes on the date of the service which included preparing to see the patient, pjpo-qv-snos patient care, completing clinical documentation, obtaining and/or reviewing separately obtained history, performing a medically appropriate examination, counseling and educating the patient/family/caregiver, and ordering medications, tests, or procedures. documented in this encounter [facility] 04-16-2023 History of Present illness Narrative Hostage Negotiator offered: Patient declines. Yan is a 33 year old who presents for an annual gynecologic exam without complaints. Pt considering getting IUD out this year. 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 Menses: No menses, just hormonal changes- more anxiety. Contraception: IUD HPV vaccine: Yes Last Pap: 02/19/2022 normal HPV: 02/14/2022 negative History of abnormal pap: Yes HPV positive in 2019 Last mammogram: never Sexually active: Yes History of STDS: None Patient concerns for STD exposure: No. 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 PAST MEDICAL HISTORY Diagnosis Date NEGATIVE MEDICAL HISTORY PAST SURGICAL HISTORY Procedure Laterality Date TONSILLECTOMY HX age 15 FAMILY HISTORY Problem Relation Age of Onset Diabetes Mother Asthma Father COPD Father Breast Cancer Paternal Aunt SOCIAL HISTORY Social History Tobacco Use Smoking status: Never Smokeless tobacco: Never Vaping Use Vaping Use: Never used Substance Use Topics Alcohol use: Yes Drug use: Never REVIEW OF SYSTEMS Abdomen: No abdominal pain, nausea, vomiting, diarrhea, or constipation. No bloating, early satiety, indigestion, or increased flatulence. Bladder: No dysuria, gross hematuria, urinary frequency, urinary urgency, or incontinence. Breast: No breast lumps, nipple d/c, overlying skin changes, redness or skin retraction. Allergies and current medication updated:Yes EXAM: BP 122/80 Ht 5' 10 (1.78m) Wt 276 lb (125.2kg) LMP 04/21/2022 BMI 39.60 kg/(m^2). GENERAL: pleasant, female in no apparent distress HEENT: Normocephalic, atraumatic, mucus membranes moist, and no lesions NECK: Supple, full range of motion, no adenopathy, and thyroid normal DERMATOLOGY: Normal, without lesions, non-icteric, and non-hirsute BREAST: soft, non-tender, symmetric, no dominant mass, normal nipple-areolar complex, no lymphadenopathy, and no nipple discharge ABDOMEN: soft, non-tender, and no masses PELVIC: external genitalia normal, normal Bartholin's glands, urethra, [place]'s glands, no vulvar lesions, no cervical lesions, good vaginal support, physiologic discharge present, normal appearing perineal body and perianal region BIMANUAL: uterus normal size, shape and consistency, no adnexal masses, and non-tender RECTOVAGINAL: deferred. NEURO: alert and oriented x3,exam grossly non-focal EXTREMITIES: normal ASSESSMENT/PLAN: 1) Health maintenance: Pap/HPV up to date. Mammogram starting age 40. Nutrition, exercise and routine health maintenance exams reviewed. Calcium/Vitamin D supplementation information provided. HPV vaccine: completed series 2) Contraception: IUD. Contraceptive options reviewed and information provided. 3) STD screening: Declined STD check. 4) Follow up one year or sooner as needed 5) weight mgmt reviewed- labs ordered. Discussed iud in place during treatment. Anai Dillon MD documented in this encounter [facility] 05-02-2022 Instructions Olivia Petersen APRN.[facility] - 05/02/2022 10:24 AM EDT Management of Benign Breast Pain / Fibrocystic Changes Decrease or avoid intake of caffeine, including coffee, teas, sodas, and chocolate. Decrease or avoid nicotine. Wear a support or sports (not underwire) bra. Take alwg-keh-sztswfa ibuprofen (Advil/Motrin) or other NSAIDs, such as naproxen (Aleve). Take 3 grams (3000 mg.) of evening primrose oil (available kfnn-viz-fxwagcl) in divided doses for 2 months. Take warm showers. Use warm compresses. documented in this encounter [facility] 05-02-2022 History of Present illness Narrative Yan Hopson is a 32 year old OB History T0 L0 SAB0 IAB0 Ectopic0 Multiple0 Live Births0 who presents with a lump in the left breast. She noticed lump yesterday while dressing for work. Denies any pain, redness, skin change or nipple discharge. Caffeine use: 4-5 cups coffee in the morning and sometimes an energy drink in the afternoon. Premenstrual tenderness: Pre-IUD she had tenderness. Her history includes: No prior breast problems. Sister with breasts cysts. Paternal aunt with breast cancer. OBJECTIVE: NECK: normal thyroid Chest: normal inspiratory effort BREASTS: Symmetrical to inspection., No dimpling or skin changes., Normal nipples without discharge., No axillary lymphadenopathy., Positive findings: nodule - sub cm nodule located Left 1 o'clock 5 cm from nipple. ASSESSMENT/PLAN: 1. Breast lump on left side at 1 o'clock position - ICD9: 611.72, ICD10: N63.21 - sub cm firm nodule - US BREAST [facility] Will notify of results. Follow- up as needed. Olivia Petersen APRN.CNP Medical Decision Making: Problems: Moderate: New problem with uncertain prognosis Data: Unique test(s) ordered: 2 Medical Decision Making Level: 3 - Low documented in this encounter [facility] 01-23-2022 Miscellaneous Notes Patient notified. Raisa Sam RN Left message to call office Please notify patient that she does have a yeast infection. I would like her to use Monistat 7 (or generic) 1 of a applicator full every night for 7 nights. If symptoms do not improve please will the office. Chelsie Tobar APRN.CNP documented in this encounter [facility] 01-21-2022 Miscellaneous Notes Patient called in and notified. Dominique Mitchell RN Left message for patient to call office or check mychart message. Dominique Mitchell RN + yeast. Recommendation is to use OTC monistat 3-7 day. Also recommend OTC azo dual relief (yeast/odor) probiotic Patient saw RM yesterday. Calling because she saw vaginal culture result on mychart. Please review result and advise in RM's absence. Dominique Mitchell RN documented in this encounter [facility] 01-20-2022 History of Present illness Narrative Yan Hopson is a 31 year old female who presents for vaginal pruritis for 1 week(s). Recently completed BV treatment. Last week noticed itching after intercourse and then again on Thursday but this time there was a little blood when wiping. Vaginal discharge: scant amount and bloody. Itching: YES Dyspareunia: No Fever/chills: No Abdominal pain: No Bladder: Negative for dysuria or frequency Bowel: No blood in stool, pain with BM, tarry stool, persistent diarrhea or constipation Any new sexual partners or concern for STD exposure: No Are you currently taking any medications to treat vaginitis: No Do you use feminine sprays, douches or deodorants: No Past medical, surgical, social history, medications and allergies reviewed and updated. OBJECTIVE: Wt 248 lb (112.5kg) LMP 08/30/2019 GENERAL: Well developed, well nourished in no apparent distress PELVIC: external genitalia normal, normal Bartholin's glands, urethra, [place]'s glands, no vulvar lesions, no cervical lesions, good vaginal support, physiologic discharge present, normal appearing perineal body and perianal region, +vulvar red and irritated ASSESSMENT/PLAN: 1. Vaginal irritation - ICD9: 623.9, ICD10: N89.8 - BACT/ILIA VAG GRAM STAIN - Lortisone ordered Chelsie Tobar APRN.CNP Medical Decision Making: Problems: Moderate: New problem with uncertain prognosis Data: Unique test(s) ordered: 1 Risk: Low: Low risk from testing/treatment Moderate: Drug management Medical Decision Making Level: 4 - Moderate documented in this encounter [facility] 01-06-2022 Miscellaneous Notes Addended by: CHELSIE TOBAR on: 01/06/2022 12:48 PM Modules accepted: Orders Rx resent. Chelsie Tobar APRN.CNP Addended by: DOMINIQUE MITCHELL RN on: 01/06/2022 12:40 PM Modules accepted: Orders Patient called in and was notified. Needed [facility] in [place]. Please file again. Dominique Mitchell RN See mychart message. Raisa Sam RN BV positive. To treat with Flagyl 500mg PO BID for 7 days. 1) No alcohol during treatment and for 24 hours after last dose. 2) No intercourse during treatment. 3) Probiotic by mouth once daily for 30 days or as needed. Chelsie Tobar APRN.CNP documented in this encounter [facility] 01-02-2022 Instructions Olivia Petersen APRN.CNP - 01/02/2022 7:51 AM EDT Minimizing irritation of the vulva (area around the vagina) Wear white cotton underwear. Avoid synthetic fabrics and tight clothing. Sleep wearing shorts or pajama bottoms without underwear. Shower as soon as possible after exercise. Avoid clothing detergents and soaps with perfumes or dyes. Use warm (not hot) water to wash the vulva and if you use soap use a product designed for sensitive skin (like Dove or Cetaphil). Do not douche or use creams/powders in the vulvar area unless instructed by your physician. If you must douche, use only plain warm water. Make sure the vulva is dry before dressing by patting dry with a towel. Avoid vigorous rubbing with the towel. You may want to use the blow dryer (on the cool setting only!) on the vulva. The most important way to let your body heal is by avoiding scratching. Many patients find it difficult to avoid scratching at night when they are most aware of the itchiness. You can try taking Benadryl just before bedtime. Some women find it helpful to wear cotton gloves to bed to avoid scratching at night. documented in this encounter [facility] 01-02-2022 History of Present illness Narrative Yan Hopson is a 31 year old female who presents for vaginal pruritis and irritation for 3 days. Had yeast infection 1.5 months effectively treated with Diflucan. Vaginal discharge: white. Itching: YES Dyspareunia: N/A Fever/chills: No Abdominal pain: No Bladder: Negative for dysuria or frequency Bowel: No blood in stool, pain with BM, tarry stool, persistent diarrhea or constipation Any new sexual partners or concern for STD exposure: Yes: new partner x 3 months Any history of STDs: None Does your partner have any new complaints: No Are you currently taking any medications to treat vaginitis: Yes, Monistat song yesterday Do you use feminine sprays, douches or deodorants: No Menstrual cycle: no menses - Mirena IUD Contraception: IUD Last pap: 2020, normal Past medical, surgical, social history, medications and allergies reviewed and updated. OBJECTIVE: BP 118/70 Wt 249 lb 9.6 oz (113.2kg) LMP 08/30/2019 GENERAL: Well developed, well nourished in no apparent distress ABDOMEN: soft, non-tender and no masses PELVIC: external genitalia normal, normal Bartholin's glands, urethra, [place]'s glands, no vulvar lesions, no cervical lesions, good vaginal support, scant white discharge present, normal appearing perineal body and perianal region BIMANUAL: uterus normal size, shape and consistency, no adnexal masses and non-tender. ASSESSMENT/PLAN: 1. Vagina itching - ICD9: 698.1, ICD10: N89.8 (primary diagnosis) - ILIA / TRICHOMONAS AMPLIFICATION - BACTERIAL VAGINOSIS AMPLIFICATION - GC/CHLAMYDIA DNA DET - Vulvar hygiene instructions 2. Vaginal discharge - ICD9: 623.5, ICD10: N89.8 - ILIA / TRICHOMONAS AMPLIFICATION - BACTERIAL VAGINOSIS AMPLIFICATION - GC/CHLAMYDIA DNA DET 3. Screen for STD (sexually transmitted disease) - ICD9: V74.5, ICD10: Z11.3 - ILIA / TRICHOMONAS AMPLIFICATION - GC/CHLAMYDIA DNA DET Will notify of results. Follow- up as needed. Olivia Petersen APRN.CNP Medical Decision Making: Problems: Low: Acute, uncomplicated illness or injury Data: Unique test(s) ordered: 3+ Medical Decision Making Level: 3 - Low documented in this encounter [facility] Evaluation note Diagnosis Vagina itching- Primary Pruritus of genital organs Vaginal discharge Leukorrhea, not specified as infective Screen for STD (sexually transmitted disease) Screening examination for venereal disease [facility] Diagnosis Vaginal irritation- Primary Unspecified noninflammatory disorder of vagina [facility] Diagnosis Breast lump on left side at 1 o'clock position- Primary Lump or mass in breast [facility] Diagnosis Encounter for gynecological examination (general) (routine) without abnormal findings- Primary Screening for thyroid disorder Encounter for vitamin deficiency screening Screening for other and unspecified endocrine, nutritional, metabolic, and immunity disorders Encounter for screening for diabetes mellitus Screening for diabetes mellitus Unintended weight gain Abnormal weight gain Screening cholesterol level Screening for lipoid disorders [facility] Diagnosis Malaise and fatigue- Primary Other malaise and fatigue Unintended weight gain Abnormal weight gain Class 3 severe obesity with body mass index (BMI) of 40.0 to 44.9 in adult, unspecified obesity type, unspecified whether serious comorbidity present (HCC) [facility] Diagnosis Acute low back pain, unspecified back pain laterality, unspecified whether sciatica present- Primary [facility] Diagnosis Acute low back pain, unspecified back pain laterality, unspecified whether sciatica present- Primary [facility] Diagnosis Acute low back pain, unspecified back pain laterality, unspecified whether sciatica present- Primary [facility] Diagnosis Encounter for IUD removal- Primary Encounter for removal of intrauterine contraceptive device [facility] Diagnosis Dysmenorrhea- Primary Encounter for fertility planning Other specified procreative management Female infertility Female infertility of unspecified origin [facility] Diagnosis Dysmenorrhea- Primary Paratubal cyst Other noninflammatory disorder of ovary, fallopian tube, and broad ligament [facility] Diagnostic Procedure Only (Routine) - Authorized Specialty Diagnoses / Procedures Referred By Kandy humphreys Referred To Contact [facility] Diagnoses Breast lump on left side at 1 o'clock position Procedures [facility] DIAGNOSTIC MAMMOGRAPHY COMPUTER-AIDED DETCJ BI Olivia Petersen APRN.DOUBLE END TENONER SETTER [address] [place] [address] [facility] [address] [place] [address] Referral ID Status Reason Start Date Expiration Date Visits Requested Visits Authorized [id number] Authorized Auto-Generat ed Referral 05/02/2022 06/01/2023 1 1 * Diagnostic Procedure Only (Routine) - Authorized Specialty Diagnoses / Procedures Referred By Contac t Referred To Contact [facility] Diagnoses Breast lump on left side at 1 o'clock position Procedures US BREAST LTD LT US BREAST UNI REAL TIME WITH IMAGE LIMITED Olivia Petersen APRN.DOUBLE END TENONER SETTER [address] [place] [address] [facility] [address] [place] [id number] Referral ID Status Reason Start Date Expiration Date Visits Requested Visits Authorized [id number] Authorized Auto-Generat ed Referral 05/02/2022 06/01/2023 1 1 [facility] for referral (narrative)* Outpatient Procedure (Routine) - Pending Review Specialty Diagnoses / Procedures Referred By Contac t Referred To Contact [facility] Diagnoses Encounter for IUD removal Procedures REMOVE INTRAUTERINE DEVICE REMOVE INTRAUTERINE DEVICE Anai Lauren MD [address] [place] [address] [facility] [address] [place] [address] Referral ID Status Reason Start Date Expiration Date Visits Requested Visits Authorized [id number] Pending Review Auto-Generat ed Referral 10/09/2023 10/08/2024 1 1 [facility] for referral (narrative)* Diagnostic Procedure Only (Routine) - Authorized Specialty Diagnoses / Procedures Referred By Contac t Referred To Contact [facility] Diagnoses Dysmenorrhea Procedures PELVIC US I US PELVIC NONOBSTETRIC REAL-TIME IMAGE COMPLETE Anai Lauren MD [address] [place] [address] [facility] [address] [place] [address] Referral ID Status Reason Start Date Expiration Date Visits Requested Visits Authorized [id number] Authorized Auto-Generat ed Referral 04/27/2024 04/27/2025 1 1 [facility]* Diagnostic Procedure Only (Routine) - Closed Specialty Diagnoses / Procedures Referred By Contac t Referred To Contact [facility] Diagnoses Dysmenorrhea Procedures PELVIC US I US PELVIC NONOBSTETRIC REAL-TIME IMAGE COMPLETE Anai Lauren MD [address] [place] [address] [facility] [address] [place] [address] Referral ID Status Reason Start Date Expiration Date V isits Requested Visits Authorized [id number] Closed Auto-Generate d Referral 04/27/2024 04/27/2025 1 1 [facility] Reason for Referral Specialty Diagnoses / Procedures Referred By Contac t Referred To Contact [facility] Diagnoses Acute low back pain, unspecified back pain laterality, unspecified whether sciatica present Procedures CONSULT TO PHYSICAL THERAPY PHYSICAL THERAPY EVALUATION HIGH COMPLEX 45 MINS Anai Lauren MD [address] [place] [address] [facility] [address] [place] [address] Referral ID Status Reason Start Date Expiration Date Visits Requested Visits Authorized [id number] Authorized Auto-Generat ed Referral 01/15/2023 08/16/2023 30 27 Summary Purpose Family History No Family History Records Found Advance Directives No Advanced Directives Records Found Additional Source Comments Source Comments (unrecognize d section and content) In the event this informatio n is protected by the Federal Confidentiality of Alcohol and Drug Abuse Patient Records regulations: The Federal rules restrict any use of the information to criminally investigate or prosecute any alcohol or drug abuse patient.[facility] the event this information is protected by the Federal Confidentiality of Alcohol and Drug Abuse Patient Records regulations: The Federal rules restrict any use of the information to criminally investigate or prosecute any alcohol or drug abuse patient.[facility] the event this information is protected by the Federal Confidentiality of Alcohol and Drug Abuse Patient Records regulations: The Federal rules restrict any use of the information to criminally investigate or prosecute any alcohol or drug abuse patient.[facility] the event this information is protected by the Federal Confidentiality of Alcohol and Drug Abuse Patient Records regulations: The Federal rules restrict any use of the information to criminally investigate or prosecute any alcohol or drug abuse patient.[facility] the event this information is protected by the Federal Confidentiality of Alcohol and Drug Abuse Patient Records regulations: The Federal rules restrict any use of the information to criminally investigate or prosecute any alcohol or drug abuse patient.[facility] the event this information is protected by the Federal Confidentiality of Alcohol and Drug Abuse Patient Records regulations: The Federal rules restrict any use of the information to criminally investigate or prosecute any alcohol or drug abuse patient.[facility] the event this information is protected by the Federal Confidentiality of Alcohol and Drug Abuse Patient Records regulations: The Federal rules restrict any use of the information to criminally investigate or prosecute any alcohol or drug abuse patient.[facility] the event this information is protected by the Federal Confidentiality of Alcohol and Drug Abuse Patient Records regulations: The Federal rules restrict any use of the information to criminally investigate or prosecute any alcohol or drug abuse patient.[facility] the event this information is protected by the Federal Confidentiality of Alcohol and Drug Abuse Patient Records regulations: The Federal rules restrict any use of the information to criminally investigate or prosecute any alcohol or drug abuse patient.[facility] the event this information is protected by the Federal Confidentiality of Alcohol and Drug Abuse Patient Records regulations: The Federal rules restrict any use of the information to criminally investigate or prosecute any alcohol or drug abuse patient.[facility] Center[facility] the event this information is protected by the Federal Confidentiality of Alcohol and Drug Abuse Patient Records regulations: The Federal rules restrict any use of the information to criminally investigate or prosecute any alcohol or drug abuse patient.[facility] Center[facility] the event this information is protected by the Federal Confidentiality of Alcohol and Drug Abuse Patient Records regulations: The Federal rules restrict any use of the information to criminally investigate or prosecute any alcohol or drug abuse patient.[facility] Center[facility] the event this information is protected by the Federal Confidentiality of Alcohol and Drug Abuse Patient Records regulations: The Federal rules restrict any use of the information to criminally investigate or prosecute any alcohol or drug abuse patient.[facility] CenterIn the event this information is protected by the Federal Confidentiality of Alcohol and Drug Abuse Patient Records regulations: The Federal rules restrict any use of the information to criminally investigate or prosecute any alcohol or drug abuse patient.[facility] Center[facility] the event this information is protected by the Federal Confidentiality of Alcohol and Drug Abuse Patient Records regulations: The Federal rules restrict any use of the information to criminally investigate or prosecute any alcohol or drug abuse patient.[facility] Center[facility] the event this information is protected by the Federal Confidentiality of Alcohol and Drug Abuse Patient Records regulations: The Federal rules restrict any use of the information to criminally investigate or prosecute any alcohol or drug abuse patient.[facility] CenterIn the event this information is protected by the Federal Confidentiality of Alcohol and Drug Abuse Patient Records regulations: The Federal rules restrict any use of the information to criminally investigate or prosecute any alcohol or drug abuse patient.[facility] CenterIn the event this information is protected by the Federal Confidentiality of Alcohol and Drug Abuse Patient Records regulations: The Federal rules restrict any use of the information to criminally investigate or prosecute any alcohol or drug abuse patient.[facility] CenterIn the event this information is protected by the Federal Confidentiality of Alcohol and Drug Abuse Patient Records regulations: The Federal rules restrict any use of the information to criminally investigate or prosecute any alcohol or drug abuse patient.[facility] Reason for Visit (unrecogniz ed section and content) Reason Comments Physical Therapy Specialty Diagnoses / Procedures Referred By Contac t Referred To Contact PHYSICAL THERAPY Diagnoses Acute low back pain, unspecified back pain laterality, unspecified whether sciatica present Procedures CONSULT TO PHYSICAL THERAPY PHYSICAL THERAPY EVALUATION HIGH COMPLEX 45 MINS Anai Lauren MD [address] [place] [address] [facility] [address] [place] [address] Referral ID Status Reason Start Date Expiration Date Visits Requested Visits Authorized [id number] Authorized Auto-Generat ed Referral 01/15/2023 08/16/2023 30 27 Reason Comments Vaginal Discharge sxs since Thursday, u sed monistat 1 day tx Reason Comments Results Reason Comments Vaginal Problem itching following in tercourse Reason Onset Date Comments Breast Problem Radiology Mammogram 05/02/[address] [facility] Reason Comments Yearly Exam Reason Onset Date Comments Weight Management 06/01/2023 Reason Comments Med Change Request Reason Comments PT Eval Reason Comments Patient Question Care Teams (unrecognized sec tion and content) Price Analyst Relationship Specialty Start Date End Date Joel Howard PCP - General 05/03/09 Price Analyst Relationship Specialty Start Date End Date Joel Howard PCP - General 05/03/09 Price Analyst Relationship Specialty Start Date End Date Joel Howard PCP - General 05/03/09 Price Analyst Relationship Specialty Start Date End Date Joel Howard PCP - General 05/03/09 Price Analyst Relationship Specialty Start Date End Date Joel Howard PCP - General 05/03/09 Price Analyst Relationship Specialty Start Date End Date Joel Howard PCP - General 05/03/09 Price Analyst Relationship Specialty Start Date End Date Joel Howard PCP - General 05/03/09 Price Analyst Relationship Specialty Start Date End Date Joel Howard PCP - General 05/03/09 Price Analyst Relationship Specialty Start Date End Date Joel Howard PCP - General 05/03/09 Price Analyst Relationship Specialty Start Date End Date Joel Howard PCP - General 05/03/09 Price Analyst Relationship Specialty Start Date End Date Hollywood, Joel Armendariz PCP - General 05/03/09 Price Analyst Relationship Specialty Start Date End Date Hollywood, Joel Armendariz PCP - General 05/03/09 Price Analyst Relationship Specialty Start Date End Date Hollywood, Joel Armendariz PCP - General 05/03/09 Price Analyst Relationship Specialty Start Date End Date Hollywood, Joel Armendariz PCP - General 05/03/09 Price Analyst Relationship Specialty Start Date End Date Hollywood, Joel Armendariz PCP - General 05/03/09 Price Analyst Relationship Specialty Start Date End Date Hollywood, Joel Armendariz PCP - General 05/03/09 Price Analyst Relationship Specialty Start Date End Date Hollywood, Joel Armendariz PCP - General 05/03/09 Price Analyst Relationship Specialty Start Date End Date Hollywood, Joel Armendariz PCP - General 05/03/09 INFORMATION SOURCE (unrecogn ized section and content) DATE CREATED AUTHOR 06/05/2024 [facility] FOR RECORDS PERTAINING TO PATIENTS WHO ARE OR HAVE BEEN ENROLLED IN A CHEMICAL DEPENDENCY/SUBSTANCEABUSE PROGRAM, SOME INFORMATION MAY BE OMITTED. This clinical summary was aggregated from multiple sources. Caution should be exercised in using it in the provision of clinical care. This summary normalizes information from multiple sources, and as a consequence, information in this document may materially change the coding, format and clinical context of patient data. In addition, data may be omitted in some cases. CLINICAL DECISIONS SHOULD BE BASED ON THE PRIMARY CLINICAL RECORDS. [facility]. provides no warranty or guarantee of the accuracy or completeness of information in this document.
--- NOTE | 2024-06-09 08:17 | OP.PCM_ITS ---
Operative Report (Standard) Operative Information Surgery/Procedure Performed: HSG Surgeon: Anai Dillon Date of Procedure: 06/09/24 Procedure Start Time: 08:10 Procedure Stop Time: 08:14 Pre-Operative Diagnosis: Infertility Post-Operative Diagnosis: same, patent bilateral tubes Select all DRAINS/GRAFTS/IMPLANTS that apply: None Type of Anesthesia: None Estimated Blood Loss: 0 Specimen collected: No Description of surgery: HSG catheter inserted after betadine prep on cervix. Dye injected, + spill on both sides noted. 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
== END | disposition home or self-care (01) ==
LOC: RAD 07:44
PROVIDERS: PCP Internal Medicine; Referring Provider Obstetrics & Gynecology; Visit Provider Obstetrics & Gynecology
DX: N97.9 Female infertility, unspecified (principal)
CPT/HCPCS: 58340; 74740

== ENCOUNTER → 2025-02-01 | Outpatient (CLI) | payer OTHER, SELFPAY ==
[2025-02-01 12:36] LABS: Absolute Lymphocyte Count 2.11 X10^3/uL (0.83-4.51); Absolute Neutrophil Count 3.6 X10^3/uL (2.0-7.7); Basophil# 0.05 X10^3/uL; Basophil% 0.8 % (0-1); Eosinophils% 1.6 % (0-5); Hematocrit 39.9 % (37-47); Hemoglobin 13.6 g/dL (12.0-15.0); Lymphocyte # 2.11 X10^3/ul (0.83-4.51); Lymphocyte % 32.9 % (19-41); Mean Corp Hgb Conc 34.1 g/dL (32-36); Mean Corpuscular Volume 93.9 fL (81-99); Mean Platelet Vol. 10.1 fl (6.2-12.0); Monocyte# 0.51 X10^3/uL; NRBC Flagged by Analyzer 0 % (0-5); Neutrophil # 3.63 X10^3/uL (2.7-7.7); Neutrophil % 56.5 % (47-70); Platelet Count 294 K/mm3 (150-450); RBC Distribution Width CV 13.4 % (11.6-14.6); RBC Distribution Width SD 46.1 fl (35.1-43.9); Red Blood Count 4.25 M/mm3 (4.2-5.4); White Blood Count 6.4 K/mm3 (4.4-11.0)
[2025-02-01 13:00] LABS: ALB/GLOB Ratio 1.8 RATIO (0.9-2.4); AST(SGOT) 21 U/L (<=31); Alanine Aminotransfer ALT/SGPT 24 U/L (<=34); Albumin, Serum 4.4 g/dL (3.5-5.0); Alkaline Phosphatase 74 U/L (35-104); Anion Gap 10 (5-15); BUN 11 mg/dL (4-19); BUN/Creat Ratio 12.6 RATIO (10-20); Calcium,Total 9.3 mg/dL (7.6-11.0); Carbon Dioxide 23.4 mmol/L (21.0-32.0); Chloride 105 mmol/L (98-108); Cholesterol 168 mg/dL (<=200); Creatinine, Serum 0.89 mg/dL (0.70-1.20); EST Glomerular Filtration Rate 87 (>60); Globulin 2.5 g/dL (2.2-4.2); Glucose 108 mg/dL (70-99); High Density Lipoprotein 74 mg/dL; Low Density Lipoprotein Calc. 83 mg/dL; Potassium 4.7 mmol/L (3.3-5.1); Protein, Total 6.8 g/dL (5.9-8.4); Sodium Level 138 mmol/L (133-145); Triglycerides 56 mg/dL; Very Low Density Lipoprotein 11 mg/dL (5-40); cholesterol:hdl ratio screen 2.27
[2025-02-02 08:46] LABS: Hemoglobin A1c 5.1 % (<=5.6)
== END | disposition home or self-care (01) ==
LOC: BIMLAB 09:26
PROVIDERS: PCP Internal Medicine; Referring Provider Internal Medicine; Visit Provider Internal Medicine
DX: Z00.00 Encounter for general adult medical examination without abnormal findings (principal); R73.9 Hyperglycemia, unspecified
CPT/HCPCS: 36415; 80053; 80061; 83036; 85025

== ENCOUNTER → 2025-08-08 | Outpatient (CLI) | payer OTHER, SELFPAY ==
[2025-08-08 16:37] LABS: Hematocrit 35.4 % (37-47); Hemoglobin 11.8 g/dL (12.0-15.0); Immature Granulocytes Count 0.030 X10^3/uL (0.0-0.0); Mean Corp Hgb Conc 33.3 g/dL (32-36); Mean Corpuscular Volume 91.2 fL (81-99); Mean Platelet Vol. 9.6 fl (6.2-12.0); NRBC Flagged by Analyzer 0 % (0-5); Platelet Count 337 K/mm3 (150-450); RBC Distribution Width CV 12.0 % (11.6-14.6); RBC Distribution Width SD 39.7 fl (35.1-43.9); Red Blood Count 3.88 M/mm3 (4.2-5.4); White Blood Count 9.5 K/mm3 (4.4-11.0)
[2025-08-08 18:02] LABS: HIV Nonreactive (Nonreactive); Hepatitis B Surface Antigen Nonreactive (Nonreactive); Hepatitis C Antibody Nonreactive (Nonreactive); Syphilis Antibodies Nonreactive (Nonreactive)
[2025-08-11 13:08] LABS: Chlamydia By Nucleic Acid AMP Negative (Negative); Gonococcus By Nucleic Acid AMP Negative (Negative)
[2025-08-14 09:08] LABS: HPV APTIMA, High Risk Negative (Negative)
== END | disposition home or self-care (01) ==
PROVIDERS: PCP Internal Medicine; Visit Provider Student in an Organized Health Care Education/Training Program
DX: O99.210 Obesity complicating pregnancy, unspecified trimester (principal); O09.90 Supervision of high risk pregnancy, unspecified, unspecified trimester; Z3A.00 Weeks of gestation of pregnancy not specified; Z12.4 Encounter for screening for malignant neoplasm of cervix
CPT/HCPCS: 36415; 83036; 85025; 86703; 86762; 86780; 86803; 86850; 86870; 86900; 86901; 87086; 87088; 87340; 87491; 87591; 87624; 88175; G0145